=== PATIENT | male | born 1950 | race African-American/Black ===

== ENCOUNTER 2019-02-07 15:25 | Inpatient (IN) | payer MEDICARE, MEDICAID ==
[~2019-02-07] VITALS: Ht 175.3 cm; Wt 76.2 kg
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
[2019-02-07 16:10] VITALS: BP 123/82
--- NOTE | 2019-02-07 16:10 | NUR ---
ED Nurse Note: pt back from CT, blood specimen obtained and sent to lab, pt provided with extra warm blanket, will cont monitor.
[2019-02-07 16:29] LABS: HEMATOCRIT 27.1 % (42.0-52.0); HEMOGLOBIN 8.7 G/DL (14.2-18.0); MEAN CORPUSCULAR VOLUME 94 FL (80-99); PLATELET COUNT 287 K/UL (150-450); RED BLOOD COUNT 2.89 M/UL (4.70-6.10); RED CELL DISTRIBUTION WIDTH 13.5 % (11.6-14.8)
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
--- NOTE | 2019-02-07 16:40 | NUR ---
ED Nurse Note: ERMD notified regarding pt's critical lab value [id number], ERMD aware, per order, 1L NS started.
--- NOTE | 2019-02-07 16:40 | NUR ---
ED Nurse Note: verified w/ ERMD regarding wound site, no suture needed at this time, per ERMD order, wound cleaned and dressing applied. pt tolerated well.
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
[2019-02-07] MEDS ORDERED: Tetanus/Diptheria/Pertussis IM ONE (16:45)
[2019-02-07 16:48] LABS: ALANINE AMINOTRANSFERASE 19 U/L (12-78); ALBUMIN 2.9 G/DL (3.4-5.0); ALBUMIN/GLOBULIN RATIO 0.7 (1.0-2.7); ALKALINE PHOSPHATASE 118 U/L (46-116); ANION GAP -18 mmol/L (5-15); ASPARTATE AMINO TRANSFERASE 29 U/L (15-37); BILIRUBIN,TOTAL 0.3 MG/DL (0.2-1.0); BLOOD UREA NITROGEN 14 mg/dL (7-18); CALCIUM 8.6 MG/DL (8.5-10.1); CARBON DIOXIDE 22 MMOL/L (21-32); CHLORIDE 104 MMOL/L (98-107); CKMB 4.7 NG/ML (0.0-3.6); CREATINE KINASE 170 U/L (26-308); POTASSIUM 3.4 MMOL/L (3.5-5.1)
[2019-02-07 16:50] LABS: SODIUM 118 MMOL/L (136-145)
--- NOTE | 2019-02-07 16:53 | Diagnostic Imaging Report ---
Indication: Cough Technique: One view of the chest Comparison: none Findings: Lungs and pleural spaces are clear. Heart size is normal Impression: No acute process
--- NOTE | 2019-02-07 17:10 | NUR ---
ED Nurse Note: pt cleaned and provided extra blanket, will cont monitor.
[2019-02-07] MEDS ORDERED: NaCl 3% 500ml 500 ML IV ONE (18:00)
[2019-02-07 18:10] VITALS: BP 139/59
--- NOTE | 2019-02-07 18:40 | NUR ---
ED Nurse Note: ATTEMPTED DOING MINI-COG X 2, PT STATES HE IS TIRED AT THIS TIME AND WOULD LIKE TO DO IT LATER. WILL TRY AGAIN.
[2019-02-07] MEDS ORDERED: LORazepam 1mg tab ORAL PRN (18:45)
[2019-02-07] MEDS ORDERED: HYDROmorphone 1mg/ml Carpuject IVP PRN (18:45)
[2019-02-07] MEDS ORDERED: Milk of Magnesia 30ml Ud ORAL PRN (18:45)
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
[2019-02-07] MEDS ORDERED: NORCO 5-325 TA1 EACH ORAL (20:37)
[2019-02-07 20:40] VITALS: BP 134/66
--- NOTE | 2019-02-07 20:40 | NUR ---
TRANSFER TO FLOOR: Patient transferred to as ordered, per Dr Perez. Report given to DAYDAY Quiñonez. Belongings and medications given to . Family and or S/O informed of transfer.
--- NOTE | 2019-02-07 20:45 | NUR ---
NURSE NOTES: Received report from RODRÍGUEZ He RN. Patient was transferred to Telemetry unit from ER via [place] without incident. No signs of acute distress noted; denies pain at this time. AOx3; able to make needs known. Ambulates with assistance. Checked IV site, line, and IV rate; patent and running. No erythema, bleeding, or infiltration noted. Patient put on Tele box; sinus rhythm on the monitor (90s). Belongings list checked with transferring RN. Patient refuses to put money in the safe at this time. Skin assessment performed; wound photos taken. Bed at lowest position, brakes on, siderails up x3. Call light within reach. Will continue to monitor.
[2019-02-07] MEDS: Heparin 5000 units/ml inj SUBQ SCH (21:00)
[2019-02-07] MEDS: Docusate 100mg cap ORAL SCH (22:06)
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
[2019-02-08] VITALS: BP 130/80
[2019-02-08 04:00] VITALS: BP 106/55
[2019-02-08 06:52] LABS: HEMATOCRIT 26.9 % (42.0-52.0); HEMOGLOBIN 8.6 G/DL (14.2-18.0); MEAN CORPUSCULAR VOLUME 96 FL (80-99); PLATELET COUNT 273 K/UL (150-450); RED BLOOD COUNT 2.79 M/UL (4.70-6.10); RED CELL DISTRIBUTION WIDTH 13.6 % (11.6-14.8); WHITE BLOOD COUNT 9.2 K/UL (4.8-10.8)
--- NOTE | 2019-02-08 07:30 | NUR ---
HAND-OFF: Report given to DAYDAY Brito, patient in stable condition, plan of care endorsed.
[2019-02-08 07:50] LABS: ALANINE AMINOTRANSFERASE 14 U/L (12-78); ALBUMIN 2.6 G/DL (3.4-5.0); ALBUMIN/GLOBULIN RATIO 0.7 (1.0-2.7); ALKALINE PHOSPHATASE 101 U/L (46-116); ANION GAP 8 mmol/L (5-15); ASPARTATE AMINO TRANSFERASE 24 U/L (15-37); BILIRUBIN,TOTAL 0.5 MG/DL (0.2-1.0); BLOOD UREA NITROGEN 10 mg/dL (7-18); CALCIUM 8.4 MG/DL (8.5-10.1); CARBON DIOXIDE 21 MMOL/L (21-32); CHLORIDE 113 MMOL/L (98-107); CHOLESTEROL 103 MG/DL (< 200); CREATININE 1.1 MG/DL (0.55-1.30); FERRITIN 110 NG/ML (8-388); GAMMA GLUTAMYL TRANSPEPTIDASE 22 U/L (5-85); HDL CHOLESTEROL 49 MG/DL (40-60); POTASSIUM 3.8 MMOL/L (3.5-5.1); SODIUM 142 MMOL/L (136-145); TRIGLYCERIDES 44 MG/DL (30-150)
--- NOTE | 2019-02-08 07:51 | NUR ---
NURSE NOTES: Received report from Nina/RN, Patient awake and alert, sitting up on bed, eating breakfast. No acute distress/SOB noted. Checked IV, patent, no infiltration or bleeding noted. Bed in low position and locked, call light within reach. Will continue plan of care.
[2019-02-08 07:59] LABS: % IRON SATURATION 23 % (15-50); IRON 48 ug/dL (50-175); TOTAL IRON BINDING CAPACITY 208 ug/dL (250-450)
[2019-02-08 08:00] VITALS: BP 100/50
[2019-02-08] MEDS: Heparin 5000 units/ml inj SUBQ SCH ×3 (09:00→21:25)
[2019-02-08] MEDS: Docusate 100mg cap ORAL SCH ×2 (09:23→21:22)
--- NOTE | 2019-02-08 09:25 | NUR ---
NURSE NOTES: Heparin was not administered because patient have Oozing of blood from right frontal head.
[2019-02-08 12:00] VITALS: BP 127/68
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
--- NOTE | 2019-02-08 12:57 | Operative Note - PDOC ---
Operative Note Operative Note Date of Operation/Procedure: Feb 08, 2019 Pre-op Diagnosis: right forehead mass / hematoma / cyst Procedure: excision of right forehead tumor Post-op Diagnosis: same as pre-op Surgeon: Ayush Specimen: yes Complications: none Condition: stable Estimated Blood Loss: none Drains: none Implant(s) used?: No Indications for Procedure This is a 68-year-old male with atypical history of trauma versus fall who has supposedly sustained a laceration to his right forehead and is identified examination to have a opening wound on his right forehead with a protruding mass which seems to be a hemorrhagic filled cyst potentially. The hematoma was evacuated but the cystic capsule was still present and abnormal. Given this with patient's permission the cystic capsule was excised and sent to pathology for review to ensure etiology. Consent obtained from patient at bedside. Mass sent to pathology. Description of Procedure On evaluation there is a 2 cm laceration with an abnormal protrusion of tissue which seems to be cystic in nature and more of a contained hematoma versus mass. With patient's permission the mass was palpated and noted to be fluid- filled. Hematoma was evacuated but there was still a cystic capsule that was remaining. With patient's permission the cystic capsule was excised using surgical forceps and scissors. On the pathology for evaluation. The wound bed was cleansed and dressings were applied. Hemostasis was noted. Geoff Peacock Feb 08, 2019 12:57
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
[2019-02-08 16:00] VITALS: BP 124/73
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
--- NOTE | 2019-02-08 17:00 | NUR ---
NURSE NOTES: Patient stated, he wants to locate his family if he is not charged for it. Put order for social service for locating his family.
[2019-02-08] MEDS ORDERED: Iron Sucrose 200 MG in NS 110 ML IV ONE (18:00)
[2019-02-08] MEDS: Vitamin B12 1000mcg/ml Inj SUBQ SCH (18:16)
--- NOTE | 2019-02-08 19:05 | NUR ---
NURSE NOTES: Received report from DAYDAY Brito, patient stable, lying comfortably in bed, no acute distress noted. AOx4, denies pain at this time. Dressing on R frontal region w/minimal bleeding. IV site right AC, intact, no s/sx of infection and phlebitis. Bed lowest position, brakes on, side rails upx 3, call light within reach, will continue to monitor and reassess.
[2019-02-08 19:12] LABS: APPEARANCE,URINE CLEAR; BILIRUBIN, URINE NEGATIVE (NEGATIVE); GLUCOSE, URINE (UA) NEGATIVE (NEGATIVE); KETONES,URINE NEGATIVE (NEGATIVE); LEUKOCYTE ESTERASE ,URINE NEGATIVE (NEGATIVE); NITRITE,URINE NEGATIVE (NEGATIVE); PH,URINE 5 (4.5-8.0); PROTEIN,URINE NEGATIVE (NEGATIVE); UROBILINOGEN,URINE 1 MG/DL (0.0-1.0)
[2019-02-08 19:15] LABS: COLOR,URINE YELLOW
--- NOTE | 2019-02-08 19:23 | NUR ---
HAND-OFF: Report given to Olamide/DAYDAY and kassidy/DAYDAY, Patient is in stable condition. Endorsed plan of care.
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
[2019-02-08 20:00] VITALS: BP 111/60
--- NOTE | 2019-02-08 20:15 | Neurology Progress Note ---
Interim History Interim History ROS Limited/Unobtainable: No Interim History no BURGESS at this time laceration repaired Objective Physical Exam Last Vital Signs Date Time Temp Pulse Resp B/P (MAP) Pulse Ox O2 Delivery O2 Flow Rate FiO2 02/08/19 16:00 98.1 72 17 124/73 (90) 100 02/08/19 09:00 Room Air Laboratory Tests Test 02/08/19 05:10 02/08/19 05:52 02/08/19 17:35 Urine Random Sodium 152 mmol/L (20-110) H White Blood Count 9.2 K/UL (4.8-10.8) Red Blood Count 2.79 M/UL (4.70-6.10) L Hemoglobin 8.6 G/DL (14.2-18.0) L Hematocrit 26.9 % (42.0-52.0) L Mean Corpuscular Volume 96 FL (80-99) Mean Corpuscular Hemoglobin 30.8 PG (27.0-31.0) Mean Corpuscular Hemoglobin Concent 32.0 G/DL (32.0-36.0) Red Cell Distribution Width 13.6 % (11.6-14.8) Platelet Count 273 K/UL (150-450) Mean Platelet Volume 4.7 FL (6.5-10.1) L Neutrophils (%) (Auto) % (45.0-75.0) Lymphocytes (%) (Auto) % (20.0-45.0) Monocytes (%) (Auto) % (1.0-10.0) Eosinophils (%) (Auto) % (0.0-3.0) Basophils (%) (Auto) % (0.0-2.0) Differential Total Cells Counted 100 Neutrophils % (Manual) 47 % (45-75) Lymphocytes % (Manual) 23 % (20-45) Monocytes % (Manual) 11 % (1-10) H Eosinophils % (Manual) 19 % (0-3) H Basophils % (Manual) 0 % (0-2) Band Neutrophils 0 % (0-8) Platelet Estimate Adequate Platelet Morphology Normal Hypochromasia 2+ Anisocytosis 1+ Sodium Level 142 MMOL/L (136-145) # Potassium Level 3.8 MMOL/L (3.5-5.1) Chloride Level 113 MMOL/L (98-107) H Carbon Dioxide Level 21 MMOL/L (21-32) Anion Gap 8 mmol/L (5-15) Blood Urea Nitrogen 10 mg/dL (7-18) Creatinine 1.1 MG/DL (0.55-1.30) Estimat Glomerular Filtration Rate > 60 mL/min (>60) Glucose Level 101 MG/DL (74-106) Hemoglobin A1c 4.9 % (4.3-6.0) Uric Acid 7.1 MG/DL (2.6-7.2) Calcium Level 8.4 MG/DL (8.5-10.1) L Phosphorus Level 5.0 MG/DL (2.5-4.9) H Magnesium Level 2.0 MG/DL (1.8-2.4) Iron Level 48 ug/dL (50-175) L Total Iron Binding Capacity 208 ug/dL (250-450) L Percent Iron Saturation 23 % (15-50) Unsaturated Iron Binding 160 ug/dL (112-346) Ferritin 110 NG/ML (8-388) Total Bilirubin 0.5 MG/DL (0.2-1.0) Gamma Glutamyl Transpeptidase 22 U/L (5-85) Aspartate Amino Transf (AST/SGOT) 24 U/L (15-37) Alanine Aminotransferase (ALT/SGPT) 14 U/L (12-78) Alkaline Phosphatase 101 U/L (46-116) C-Reactive Protein, Quantitative < 0.4 mg/dL (0.00-0.90) Pro-B-Type Natriuretic Peptide 610 pg/mL (0-125) H Total Protein 6.1 G/DL (6.4-8.2) L Albumin 2.6 G/DL (3.4-5.0) L Globulin 3.5 g/dL Albumin/Globulin Ratio 0.7 (1.0-2.7) L Triglycerides Level 44 MG/DL (30-150) Cholesterol Level 103 MG/DL (< 200) LDL Cholesterol 46 mg/dL (<100) HDL Cholesterol 49 MG/DL (40-60) Cholesterol/HDL Ratio 2.1 (3.3-4.4) L Vitamin B12 Level 176 PG/ML (193-986) L Folate 16.0 NG/ML (8.6-58.9) Urine Color Yellow Urine Appearance Clear Urine pH 5 (4.5-8.0) Urine Specific [place] 1.015 (1.005-1.035) Urine Protein Negative (NEGATIVE) Urine Glucose (UA) Negative (NEGATIVE) Urine Ketones Negative (NEGATIVE) Urine Blood Negative (NEGATIVE) Urine Nitrite Negative (NEGATIVE) Urine Bilirubin Negative (NEGATIVE) Urine Urobilinogen 1 MG/DL (0.0-1.0) H Urine Leukocyte Esterase Negative (NEGATIVE) Urine RBC 0-2 /HPF (0 - 0) H Urine WBC 0-2 /HPF (0 - 0) Urine Squamous Epithelial Cells Few /LPF (NONE/OCC) Urine Bacteria None /HPF (NONE) General: well developed Neurologic Exam Mental Status: awake, alert, normal cognition, good mathematical skills, normal recent memory, normal remote memory, preserved visuospatial function Speech: normal speech, no dysarthia Language: normal language, no aphasia Cranial Nerves III, IV, : PERRLA Cranial Nerve V: normal facial sensations Motor System: normal muscle tone, strength 5/5, no involuntary movement, no muscle wasting Coordination: normal finger to nose bilaterally, normal heel to plata bilaterally, negative Romberg test Impression/Recommendations Problems: (1) Hyponatremia (2) Fall (3) Head trauma Recommendations monitor neuro status - non focal now ivfs 3% per nephro no need for AEDs Kota Burch MD Feb 08, 2019 20:15
[2019-02-09 00:01] VITALS: BP 109/61
[2019-02-09 04:00] VITALS: BP 115/69
[2019-02-09 06:42] LABS: HEMATOCRIT 26.2 % (42.0-52.0); HEMOGLOBIN 8.4 G/DL (14.2-18.0); MEAN CORPUSCULAR VOLUME 96 FL (80-99); PLATELET COUNT 255 K/UL (150-450); RED BLOOD COUNT 2.72 M/UL (4.70-6.10); RED CELL DISTRIBUTION WIDTH 13.6 % (11.6-14.8); WHITE BLOOD COUNT 6.8 K/UL (4.8-10.8)
[2019-02-09 07:21] LABS: ALANINE AMINOTRANSFERASE 12 U/L (12-78); ALBUMIN 2.4 G/DL (3.4-5.0); ALBUMIN/GLOBULIN RATIO 0.7 (1.0-2.7); ALKALINE PHOSPHATASE 90 U/L (46-116); ANION GAP 7 mmol/L (5-15); ASPARTATE AMINO TRANSFERASE 20 U/L (15-37); BLOOD UREA NITROGEN 11 mg/dL (7-18); CALCIUM 8.2 MG/DL (8.5-10.1); CARBON DIOXIDE 25 MMOL/L (21-32); CHLORIDE 110 MMOL/L (98-107); CREATININE 1.1 MG/DL (0.55-1.30); PHOSPHORUS 4.4 MG/DL (2.5-4.9); POTASSIUM 3.4 MMOL/L (3.5-5.1); SODIUM 142 MMOL/L (136-145)
--- NOTE | 2019-02-09 07:30 | NUR ---
HAND-OFF: Report given to DAYDAY Ryan, patient in stable condition.Plan of care endorsed
[2019-02-09 07:36] LABS: BILIRUBIN,TOTAL 0.2 MG/DL (0.2-1.0)
[2019-02-09 08:00] VITALS: BP 115/72
--- NOTE | 2019-02-09 08:01 | NUR ---
NURSE NOTES: Received report from DAYDAY Quiñonez. Patient in bed resting, no active s/s cardiac, respiratory distress noticed at this time. Patient AOx3, on room air, denies pain at this time, IV on left hand 22G, asymptomatic, patent, intact. Patient has forehead dressing. SR with HR 80. Bed in lowest position, side rails upx3, call light within reach. Will continue to monitor.
[2019-02-09] MEDS ORDERED: Vitamin B12 1000mcg/ml Inj SUBQ SCH (09:00)
[2019-02-09] MEDS ORDERED: Thiamine 100mg tab ORAL SCH (09:00)
[2019-02-09] MEDS: Vitamin B12 1000mcg/ml Inj SUBQ SCH (09:23)
[2019-02-09] MEDS: Docusate 100mg cap ORAL SCH ×2 (09:23→18:02)
[2019-02-09] MEDS: Heparin 5000 units/ml inj SUBQ SCH ×2 (09:24→20:56)
--- NOTE | 2019-02-09 09:35 | NUR ---
PT EVALUATION NOTE Patient seen for initial evaluation. Patient demonstrates independent functional mobility with transfers and ambulation without an assistive device. Skilled inpatient PT intervention not indicated, patient discharged from physical therapy. Patient cleared to ambulate with nursing supervision in ivana, RN notified. Discharge disposition to be determined based on MD recommendation. No DME needs at this time. Addendum: 02/09/19 at 1002 by LAVON GREEN PT Amended: Links added.
--- NOTE | 2019-02-09 10:59 | NUR ---
CASE MANAGEMENT:REVIEW 02/09/19 SI:HEAD TRAUMA...S/P REPAIR...POD #1 HYPONATREMIA ~ CORRECTED 99.1 79 18 115/72 100% ON RA H/H-8.4/26.2 K-3.4 IS: K-DUR PO QD THIAMINE PO QD FOLATE PO QD VIT B 12 SQ QD PROTONIX PO QD HEPARIN SQ Q12 :TELEMETRY STATUS DCP: HOMELESS
--- NOTE | 2019-02-09 11:40 | NUR ---
INSURANCE UPDATED CLINICALS and REVIEW HAVE BEEN FAXED TO: IPA: DONTAE BENAVIDES PLEASE FAX THE REVIEW AND CLINICAL TO P: [phone] F: [phone] (SEND CLINICALS)
[2019-02-09 12:00] VITALS: BP 132/71
--- NOTE | 2019-02-09 12:15 | Nephrology Progress Note ---
Assessment/Plan Problem List: (1) Hyponatremia (2) Fall (3) Forehead trauma (4) Forehead laceration (5) Anemia (6) ETOH abuse Assessment HypoNatremia, was likely depletional & Dehydration corrected now Anemia Low b12 ETOH Abuse Plan B complex MVT IV iron Monitor H&h and Serum na k supplement Subjective ROS Limited/Unobtainable: No Constitutional: Reports: malaise Objective Objective Last 24 Hour Vital Signs Date Time Temp Pulse Resp B/P (MAP) Pulse Ox O2 Delivery O2 Flow Rate FiO2 02/09/19 09:00 Room Air 02/09/19 08:00 99.1 79 18 115/72 (86) 100 02/09/19 08:00 88 02/09/19 04:00 98.3 75 19 115/69 (84) 100 02/09/19 04:00 80 02/09/19 00:01 98.6 77 19 109/61 (77) 100 02/09/19 00:00 80 02/08/19 21:00 Room Air 02/08/19 20:00 98.5 77 20 111/60 (77) 100 02/08/19 20:00 73 02/08/19 16:00 98.1 72 17 124/73 (90) 100 02/08/19 16:00 72 Intake and Output 02/08/19 02/09/19 19:00 07:00 Intake Total 400 ml Output Total 600 ml Balance 400 ml -600 ml Intake Oral 400 ml Output Urine Total 600 ml # Voids 2 Laboratory Tests 02/08/19 17:35: Urine Color Yellow, Urine Appearance Clear, Urine pH 5, Urine Specific [place] 1.015, Urine Protein Negative, Urine Glucose (UA) Negative, Urine Ketones Negative, Urine Blood Negative, Urine Nitrite Negative, Urine Bilirubin Negative , Urine Urobilinogen 1H, Urine Leukocyte Esterase Negative, Urine RBC 0-2H, Urine WBC 0-2, Urine Squamous Epithelial Cells Few, Urine Bacteria None 02/09/19 06:15: White Blood Count 6.8, Red Blood Count 2.72L, Hemoglobin 8.4L, Hematocrit 26.2L , Mean Corpuscular Volume 96, Mean Corpuscular Hemoglobin 30.8, Mean Corpuscular Hemoglobin Concent 32.0, Red Cell Distribution Width 13.6, Platelet Count 255, Mean Platelet Volume 5.1L, Neutrophils (%) (Auto) , Lymphocytes (%) ( Auto) , Monocytes (%) (Auto) , Eosinophils (%) (Auto) , Basophils (%) (Auto) , Differential Total Cells Counted 100, Neutrophils % (Manual) 49, Lymphocytes % ( Manual) 26, Monocytes % (Manual) 0L, Eosinophils % (Manual) 25H, Basophils % ( Manual) 0, Band Neutrophils 0, Platelet Estimate Adequate, Platelet Morphology Normal, Hypochromasia 1+, Sodium Level 142, Potassium Level 3.4L, Chloride Level 110H, Carbon Dioxide Level 25, Anion Gap 7, Blood Urea Nitrogen 11, Creatinine 1.1, Estimat Glomerular Filtration Rate > 60, Glucose Level 117H, Uric Acid 7.1, Calcium Level 8.2L, Phosphorus Level 4.4, Magnesium Level 1.9, Total Bilirubin 0.2, Aspartate Amino Transf (AST/SGOT) 20, Alanine Aminotransferase (ALT/SGPT) 12, Alkaline Phosphatase 90, C-Reactive Protein, Quantitative < 0.4, Total Protein 5.8L, Albumin 2.4L, Globulin 3.4, Albumin/ Globulin Ratio 0.7L Height (Feet): 5 Height (Inches): 9.00 Weight (Pounds): 168 General Appearance: no apparent distress Cardiovascular: normal rate Respiratory/Chest: lungs clear Abdomen: soft Objective no change Parth Wright MD Feb 09, 2019 12:15
[2019-02-09] MEDS ORDERED: Docusate 100mg cap ORAL SCH (13:00)
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
--- NOTE | 2019-02-09 14:30 | NUR ---
NURSE NOTES: Dressing for forehead changed, cleansed with normal saline, gauze saturated with serous red drainage, no oozing at this time, pressure applied, new gauze applied. Will continue to monitor.
--- NOTE | 2019-02-09 15:58 | Neurology Progress Note ---
Interim History Interim History ROS Limited/Unobtainable: No Interim History no BURGESS, more alert, pressured speech Objective Physical Exam Last Vital Signs Date Time Temp Pulse Resp B/P (MAP) Pulse Ox O2 Delivery O2 Flow Rate FiO2 02/09/19 12:00 75 02/09/19 12:00 98.6 18 132/71 (91) 100 02/09/19 09:00 Room Air Laboratory Tests Test 02/08/19 17:35 02/09/19 06:15 Urine Color Yellow Urine Appearance Clear Urine pH 5 (4.5-8.0) Urine Specific [place] 1.015 (1.005-1.035) Urine Protein Negative (NEGATIVE) Urine Glucose (UA) Negative (NEGATIVE) Urine Ketones Negative (NEGATIVE) Urine Blood Negative (NEGATIVE) Urine Nitrite Negative (NEGATIVE) Urine Bilirubin Negative (NEGATIVE) Urine Urobilinogen 1 MG/DL (0.0-1.0) H Urine Leukocyte Esterase Negative (NEGATIVE) Urine RBC 0-2 /HPF (0 - 0) H Urine WBC 0-2 /HPF (0 - 0) Urine Squamous Epithelial Cells Few /LPF (NONE/OCC) Urine Bacteria None /HPF (NONE) White Blood Count 6.8 K/UL (4.8-10.8) Red Blood Count 2.72 M/UL (4.70-6.10) L Hemoglobin 8.4 G/DL (14.2-18.0) L Hematocrit 26.2 % (42.0-52.0) L Mean Corpuscular Volume 96 FL (80-99) Mean Corpuscular Hemoglobin 30.8 PG (27.0-31.0) Mean Corpuscular Hemoglobin Concent 32.0 G/DL (32.0-36.0) Red Cell Distribution Width 13.6 % (11.6-14.8) Platelet Count 255 K/UL (150-450) Mean Platelet Volume 5.1 FL (6.5-10.1) L Neutrophils (%) (Auto) % (45.0-75.0) Lymphocytes (%) (Auto) % (20.0-45.0) Monocytes (%) (Auto) % (1.0-10.0) Eosinophils (%) (Auto) % (0.0-3.0) Basophils (%) (Auto) % (0.0-2.0) Differential Total Cells Counted 100 Neutrophils % (Manual) 49 % (45-75) Lymphocytes % (Manual) 26 % (20-45) Monocytes % (Manual) 0 % (1-10) L Eosinophils % (Manual) 25 % (0-3) H Basophils % (Manual) 0 % (0-2) Band Neutrophils 0 % (0-8) Platelet Estimate Adequate Platelet Morphology Normal Hypochromasia 1+ Sodium Level 142 MMOL/L (136-145) Potassium Level 3.4 MMOL/L (3.5-5.1) L Chloride Level 110 MMOL/L (98-107) H Carbon Dioxide Level 25 MMOL/L (21-32) Anion Gap 7 mmol/L (5-15) Blood Urea Nitrogen 11 mg/dL (7-18) Creatinine 1.1 MG/DL (0.55-1.30) Estimat Glomerular Filtration Rate > 60 mL/min (>60) Glucose Level 117 MG/DL (74-106) H Uric Acid 7.1 MG/DL (2.6-7.2) Calcium Level 8.2 MG/DL (8.5-10.1) L Phosphorus Level 4.4 MG/DL (2.5-4.9) Magnesium Level 1.9 MG/DL (1.8-2.4) Total Bilirubin 0.2 MG/DL (0.2-1.0) Aspartate Amino Transf (AST/SGOT) 20 U/L (15-37) Alanine Aminotransferase (ALT/SGPT) 12 U/L (12-78) Alkaline Phosphatase 90 U/L (46-116) C-Reactive Protein, Quantitative < 0.4 mg/dL (0.00-0.90) Total Protein 5.8 G/DL (6.4-8.2) L Albumin 2.4 G/DL (3.4-5.0) L Globulin 3.4 g/dL Albumin/Globulin Ratio 0.7 (1.0-2.7) L General: well developed Neurologic Exam Mental Status: awake, alert, normal cognition, good mathematical skills, normal recent memory, normal remote memory, preserved visuospatial function Speech: normal speech, no dysarthia Language: normal language, no aphasia Cranial Nerves III, IV, : PERRLA Cranial Nerve V: normal facial sensations Motor System: normal muscle tone, strength 5/5, no involuntary movement, no muscle wasting Coordination: normal finger to nose bilaterally, normal heel to plata bilaterally, negative Romberg test Impression/Recommendations Problems: (1) Hyponatremia (2) Fall (3) Head trauma Recommendations monitor neuro status - non focal now ivfs 3% per nephro no need for AEDs Kota Burch MD Feb 09, 2019 15:58
[2019-02-09 16:00] VITALS: BP 138/77
--- NOTE | 2019-02-09 16:03 | Cardiology Report ---
APPROVED REPORT EKG Measurement Heart [id number] Normal sinus rhythm Normal ECG
--- NOTE | 2019-02-09 17:13 | NUR ---
TRANSFER TO FLOOR: Patient transferred to , per Dr. Wright. Report given to DAYDAY Shen. Belongings and medications given to DAYDAY Shen. Family and or S/O informed of transfer.
--- NOTE | 2019-02-09 17:20 | NUR ---
NURSE NOTES: Received patient into room 409 bed 1,patient is alert and oriented,Dressing noted to the right forehead,patient personal belongings at bedside,patient has wood,patient wants to keep money with him.Patient state he has 192 dollars,money counted by both RN and verify 192 dollars. .Call light within reach.
--- NOTE | 2019-02-09 17:48 | NUR ---
HOMELESS COORDINATOR HC provided clothing and resources for patient. HC contacted insurance to find out if they cover any substance abuse program, insurance request denied. HC spoke with Flor. Patient still refuses placement for group home. Patient continues to require medical intervention. Will continue to monitor and assist as needed.
[2019-02-09] MEDS ORDERED: LORazepam 1mg tab ORAL PRN (18:00)
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
--- NOTE | 2019-02-09 19:06 | General Progress Note ---
Advance Care Planning Advance Care Planning Advance Care Planning [facility] An independent Hospitalist group, where every patient is our [facility] Internal Medicine Hospitalist Advanced Care Planning Note Please contact us at Date of Discussion: A [id number] discussion with the pt regarding the patient's advanced care planning took place during this hospitalization on the above date. The discussion included the explanation and discussion of advance directives and associated forms/documents, as well as the patient's current code status. We also discussed at length the patient's medical conditions (both acute and chronic), general prognosis, treatment options, and goals of care. The following summarizes the discussion: Advance Care Planning/Goals of Care: - Will attempt to fill out an AD and/or POLST with the patient prior to discharge, if not already completed - Continue current evaluation and management of any acute and chronic medical issues - Will continue to support the patient/family - Will continue to discuss both short- and long-term goals of care DPOA-HC/Surrogate Decision Maker: None currently appointed Code Status: Full Code Advanced Care Planning Forms/Documents Completed: Deferred until later encounter/visit A total of 19 minutes was spent on this discussion, including counseling, answering questions, and completing, if any, pertinent advanced care planning forms/documents. Time of note may not reflect time of encounter. Radha Espinoza MD Feb 09, 2019 19:05
--- NOTE | 2019-02-09 19:17 | NUR ---
HAND-OFF: Report given to RICKY NAYLOR.
--- NOTE | 2019-02-09 19:55 | NUR ---
NURSE NOTES: Pt is in bed, awake and verbal. No acute distress noted. Bed locked low in position,side rails up and call light within reach. Pt instructed to call for assistance.
[2019-02-09 20:00] VITALS: BP 128/74
[2019-02-09] MEDS ORDERED: Milk of Magnesia 30ml Ud ORAL PRN (21:00)
[2019-02-10] VITALS: BP 125/76
--- NOTE | 2019-02-10 01:05 | NUR ---
NURSE NOTES: Pt's head dressing came off, dressing reapplied.
[2019-02-10 04:00] VITALS: BP 110/69
--- NOTE | 2019-02-10 07:10 | NUR ---
HAND-OFF: Report given to DAYDAY Shen.
--- NOTE | 2019-02-10 07:35 | NUR ---
NURSE NOTES: Patient is alert and oriented,respiration unlabored,patient sitting up in bed and eating breakfast.Dressing to the forehead intact.IV heplock intact.Bed alarm is on,call light within reach.
[2019-02-10 08:15] VITALS: BP 125/77
[2019-02-10] MEDS: Docusate 100mg cap ORAL SCH ×3 (08:23→18:48)
[2019-02-10] MEDS: Thiamine 100mg tab ORAL SCH (08:25)
[2019-02-10] MEDS: Heparin 5000 units/ml inj SUBQ SCH ×2 (08:36→21:00)
[2019-02-10] MEDS ORDERED: Vitamin B12 1000mcg/ml Inj SUBQ SCH (09:00)
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
[2019-02-10 12:00] VITALS: BP 132/74
--- NOTE | 2019-02-10 14:23 | Nephrology Progress Note ---
Assessment/Plan Problem List: (1) Hyponatremia (2) Fall (3) Forehead trauma (4) Forehead laceration (5) Anemia (6) ETOH abuse Assessment HypoNatremia, was likely depletional & Dehydration corrected now Anemia Low b12 ETOH Abuse Plan B complex MVT IV iron Monitor H&h and Serum na k supplement Subjective ROS Limited/Unobtainable: No Objective Objective Last 24 Hour Vital Signs Date Time Temp Pulse Resp B/P (MAP) Pulse Ox O2 Delivery O2 Flow Rate FiO2 02/10/19 12:00 98.1 78 18 132/74 (93) 98 02/10/19 09:00 Room Air 02/10/19 08:15 98.2 87 20 125/77 (93) 97 02/10/19 04:00 98.2 72 18 110/69 (83) 98 02/10/19 00:00 98.4 70 19 125/76 (92) 99 02/09/19 21:00 Room Air 02/09/19 20:00 99.7 90 19 128/74 (92) 100 02/09/19 16:00 98.4 80 18 138/77 (97) 100 Intake and Output 02/09/19 02/10/19 19:00 07:00 Intake Total 360 ml Output Total 350 ml Balance 360 ml -350 ml Intake Oral 360 ml Output Urine Total 350 ml Height (Feet): 5 Height (Inches): 9.00 Weight (Pounds): 168 General Appearance: no apparent distress Objective no change Parth Wright MD Feb 10, 2019 14:23
[2019-02-10 16:00] VITALS: BP 127/77
--- NOTE | 2019-02-10 18:51 | NUR ---
NURSE NOTES: Patient resting,no complaints at this time, call light within reach.Dressing to the right side of forehead intact,no bleeding or drainage noted.
--- NOTE | 2019-02-10 19:54 | NUR ---
HAND-OFF: Report given to Silvano NAYLOR.
[2019-02-10 20:00] VITALS: BP 132/76
--- NOTE | 2019-02-10 20:14 | Neurology Progress Note ---
Interim History Interim History ROS Limited/Unobtainable: No Interim History more alert awake Objective Physical Exam Last Vital Signs Date Time Temp Pulse Resp B/P (MAP) Pulse Ox O2 Delivery O2 Flow Rate FiO2 02/10/19 16:00 98.2 82 18 127/77 (94) 100 02/10/19 09:00 Room Air General: well developed Neurologic Exam Mental Status: awake, alert, normal cognition, good mathematical skills, normal recent memory, normal remote memory, preserved visuospatial function Speech: normal speech, no dysarthia Language: normal language, no aphasia Cranial Nerves III, IV, : PERRLA Cranial Nerve V: normal facial sensations Motor System: normal muscle tone, strength 5/5, no involuntary movement, no muscle wasting Coordination: normal finger to nose bilaterally, normal heel to plata bilaterally, negative Romberg test Impression/Recommendations Problems: (1) Hyponatremia (2) Fall (3) Head trauma Recommendations monitor neuro status - non focal now no need for AEDs PT OT for dispo Kota Burch MD Feb 10, 2019 20:14
--- NOTE | 2019-02-10 20:36 | NUR ---
NURSE NOTES: Patient in bed, awake, periods of confusion. call light is at bedside. Respiration is even and unlabored. No complaint of pain or discomfort noted. Skin is warm and dry. Noted with forehead dressing. Dry and intact. IV site noted. Will continue plan of care.
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
[2019-02-11] VITALS: BP 136/68
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
[2019-02-11 04:00] VITALS: BP 156/74
--- NOTE | 2019-02-11 07:09 | NUR ---
HAND-OFF: Report given to DAYDAY Owens..
--- NOTE | 2019-02-11 07:40 | NUR ---
NURSE NOTES: Patient awake and alert,patient sitting up in bed and eating breakfast.Dressing to the forehead in tact with a small amount of stain blood noted on dressing,no complaint at this time. Call light within reach.
[2019-02-11 08:00] VITALS: BP 102/64
[2019-02-11] MEDS: Heparin 5000 units/ml inj SUBQ SCH ×2 (09:00→21:06)
[2019-02-11] MEDS: Docusate 100mg cap ORAL SCH ×3 (09:27→18:30)
[2019-02-11] MEDS: Thiamine 100mg tab ORAL SCH (09:28)
[2019-02-11 09:43] LABS: BASOPHILS % (AUTO) 0.6 % (0.0-2.0); EOSINOPHILS % (AUTO) 13.3 % (0.0-3.0); HEMATOCRIT 28.1 % (42.0-52.0); HEMOGLOBIN 8.9 G/DL (14.2-18.0); LYMPHOCYTES % (AUTO) 20.9 % (20.0-45.0); MEAN CORPUSCULAR VOLUME 97 FL (80-99); MONOCYTES % (AUTO) 6.1 % (1.0-10.0); NEUTROPHILS % (AUTO) 59.2 % (45.0-75.0); PLATELET COUNT 262 K/UL (150-450); RED CELL DISTRIBUTION WIDTH 13.5 % (11.6-14.8); WHITE BLOOD COUNT 7.9 K/UL (4.8-10.8)
[2019-02-11 10:56] LABS: ALANINE AMINOTRANSFERASE 12 U/L (12-78); ALBUMIN 2.6 G/DL (3.4-5.0); ALBUMIN/GLOBULIN RATIO 0.7 (1.0-2.7); ALKALINE PHOSPHATASE 78 U/L (46-116); ANION GAP 9 mmol/L (5-15); ASPARTATE AMINO TRANSFERASE 19 U/L (15-37); BILIRUBIN,TOTAL 0.3 MG/DL (0.2-1.0); BLOOD UREA NITROGEN 13 mg/dL (7-18); CALCIUM 8.5 MG/DL (8.5-10.1); CARBON DIOXIDE 26 MMOL/L (21-32); CHLORIDE 105 MMOL/L (98-107); FERRITIN 156 NG/ML (8-388); PHOSPHORUS 4.2 MG/DL (2.5-4.9); POTASSIUM 3.9 MMOL/L (3.5-5.1); SODIUM 139 MMOL/L (136-145)
[2019-02-11 11:29] LABS: % IRON SATURATION 19 % (15-50); IRON 39 ug/dL (50-175); TOTAL IRON BINDING CAPACITY 207 ug/dL (250-450)
[2019-02-11 12:00] VITALS: BP 134/82
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
--- NOTE | 2019-02-11 14:29 | Nephrology Progress Note ---
Assessment/Plan Problem List: (1) Hyponatremia (2) Fall (3) Forehead trauma (4) Forehead laceration (5) Anemia (6) ETOH abuse Assessment HypoNatremia, was likely depletional & Dehydration corrected now Anemia Low b12 ETOH Abuse Plan B complex MVT IV iron Monitor H&h and Serum na k supplement DC planning Subjective ROS Limited/Unobtainable: No Objective Objective Last 24 Hour Vital Signs Date Time Temp Pulse Resp B/P (MAP) Pulse Ox O2 Delivery O2 Flow Rate FiO2 02/11/19 09:33 Room Air 02/11/19 08:00 98.7 87 19 102/64 (77) 02/11/19 04:00 98.3 86 18 156/74 (101) 94 02/11/19 00:00 98.8 88 19 136/68 (90) 99 02/10/19 21:00 Room Air 02/10/19 20:00 99.0 86 18 132/76 (94) 100 02/10/19 16:00 98.2 82 18 127/77 (94) 100 Intake and Output 02/10/19 02/11/19 18:59 06:59 Intake Total 840 ml 600 ml Output Total 1200 ml 1300 ml Balance -360 ml -700 ml Intake Oral 840 ml 600 ml Output Urine Total 1200 ml 1300 ml # Voids 2 2 Laboratory Tests 02/11/19 08:00: White Blood Count 7.9, Red Blood Count 2.90L, Hemoglobin 8.9L, Hematocrit 28.1L , Mean Corpuscular Volume 97, Mean Corpuscular Hemoglobin 30.7, Mean Corpuscular Hemoglobin Concent 31.6L, Red Cell Distribution Width 13.5, Platelet Count 262, Mean Platelet Volume 5.0L, Neutrophils (%) (Auto) 59.2, Lymphocytes (%) (Auto) 20.9, Monocytes (%) (Auto) 6.1, Eosinophils (%) (Auto) 13.3H, Basophils (%) (Auto) 0.6, Sodium Level 139, Potassium Level 3.9, Chloride Level 105, Carbon Dioxide Level 26, Anion Gap 9, Blood Urea Nitrogen 13 , Creatinine 1.0, Estimat Glomerular Filtration Rate > 60, Glucose Level 150H, Calcium Level 8.5, Phosphorus Level 4.2, Magnesium Level 1.9, Iron Level 39L, Total Iron Binding Capacity 207L, Percent Iron Saturation 19, Unsaturated Iron Binding 168, Ferritin 156, Total Bilirubin 0.3, Aspartate Amino Transf (AST/SGOT ) 19, Alanine Aminotransferase (ALT/SGPT) 12, Alkaline Phosphatase 78, Total Protein 6.3L, Albumin 2.6L, Globulin 3.7, Albumin/Globulin Ratio 0.7L, Vitamin B12 Level > 2000H, Vitamin D 25-Hydroxy [Pending], 25-Hydroxy Vitamin D2 [ Pending], 25-Hydroxy Vitamin D3 [Pending] Height (Feet): 5 Height (Inches): 9.00 Weight (Pounds): 168 General Appearance: no apparent distress Objective no change Parth Wright MD Feb 11, 2019 14:29
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
[2019-02-11 16:00] VITALS: BP 125/75
--- NOTE | 2019-02-11 17:05 | Neurology Progress Note ---
Interim History Interim History ROS Limited/Unobtainable: No Interim History alert, awake, ambulated Objective Physical Exam Last Vital Signs Date Time Temp Pulse Resp B/P (MAP) Pulse Ox O2 Delivery O2 Flow Rate FiO2 02/11/19 12:00 98.3 77 18 134/82 (99) 99 02/11/19 09:33 Room Air Laboratory Tests Test 02/11/19 08:00 White Blood Count 7.9 K/UL (4.8-10.8) Red Blood Count 2.90 M/UL (4.70-6.10) L Hemoglobin 8.9 G/DL (14.2-18.0) L Hematocrit 28.1 % (42.0-52.0) L Mean Corpuscular Volume 97 FL (80-99) Mean Corpuscular Hemoglobin 30.7 PG (27.0-31.0) Mean Corpuscular Hemoglobin Concent 31.6 G/DL (32.0-36.0) L Red Cell Distribution Width 13.5 % (11.6-14.8) Platelet Count 262 K/UL (150-450) Mean Platelet Volume 5.0 FL (6.5-10.1) L Neutrophils (%) (Auto) 59.2 % (45.0-75.0) Lymphocytes (%) (Auto) 20.9 % (20.0-45.0) Monocytes (%) (Auto) 6.1 % (1.0-10.0) Eosinophils (%) (Auto) 13.3 % (0.0-3.0) H Basophils (%) (Auto) 0.6 % (0.0-2.0) Sodium Level 139 MMOL/L (136-145) Potassium Level 3.9 MMOL/L (3.5-5.1) Chloride Level 105 MMOL/L (98-107) Carbon Dioxide Level 26 MMOL/L (21-32) Anion Gap 9 mmol/L (5-15) Blood Urea Nitrogen 13 mg/dL (7-18) Creatinine 1.0 MG/DL (0.55-1.30) Estimat Glomerular Filtration Rate > 60 mL/min (>60) Glucose Level 150 MG/DL (74-106) H Calcium Level 8.5 MG/DL (8.5-10.1) Phosphorus Level 4.2 MG/DL (2.5-4.9) Magnesium Level 1.9 MG/DL (1.8-2.4) Iron Level 39 ug/dL (50-175) L Total Iron Binding Capacity 207 ug/dL (250-450) L Percent Iron Saturation 19 % (15-50) Unsaturated Iron Binding 168 ug/dL (112-346) Ferritin 156 NG/ML (8-388) Total Bilirubin 0.3 MG/DL (0.2-1.0) Aspartate Amino Transf (AST/SGOT) 19 U/L (15-37) Alanine Aminotransferase (ALT/SGPT) 12 U/L (12-78) Alkaline Phosphatase 78 U/L (46-116) Total Protein 6.3 G/DL (6.4-8.2) L Albumin 2.6 G/DL (3.4-5.0) L Globulin 3.7 g/dL Albumin/Globulin Ratio 0.7 (1.0-2.7) L Vitamin B12 Level > 2000 PG/ML (193-986) H Vitamin D 25-Hydroxy Pending 25-Hydroxy Vitamin D2 Pending 25-Hydroxy Vitamin D3 Pending General: well developed Neurologic Exam Mental Status: awake, alert, normal cognition, good mathematical skills, normal recent memory, normal remote memory, preserved visuospatial function Speech: normal speech, no dysarthia Language: normal language, no aphasia Cranial Nerves III, IV, : PERRLA Cranial Nerve V: normal facial sensations Motor System: normal muscle tone, strength 5/5, no involuntary movement, no muscle wasting Coordination: normal finger to nose bilaterally, normal heel to plata bilaterally, negative Romberg test Impression/Recommendations Problems: (1) Hyponatremia (2) Fall (3) Head trauma Recommendations monitor neuro status - non focal now no need for AEDs PT OT for dispo Kota Burch MD Feb 11, 2019 17:05
--- NOTE | 2019-02-11 18:30 | NUR ---
NURSE NOTES: Patient resting,no bleeding noted at the right forehead.dressing intact.No complaint of pain.Call light within reach.Dressing to be changed as ordered
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
[2019-02-11 20:00] VITALS: BP 116/74
[2019-02-12] VITALS (7 sets, daily range): BP systolic 112–144; BP diastolic 66–86
--- NOTE | 2019-02-12 04:54 | NUR ---
NURSE NOTES: Provided dressing change on the forehead. Cleansed with saline and placed new gauze. Taped with paper tape. Patient explained procedure before and during. Patient verbalized understanding. Tolerated well.
--- NOTE | 2019-02-12 07:19 | NUR ---
HAND-OFF: Report given to DAYDAY Bowens. Patient in stable condition.
--- NOTE | 2019-02-12 07:57 | NUR ---
NURSE NOTES: Patient received in stable condition, sleeping in bed. Breathing even and unlabored on room air. No signs of respiratory distress or SOB noted. Dressing on right forehead observed to be clean, dry and intact. IV site on right arm patent, saline lock. Urinal by the bedside. Bed locked in lowest position, call light placed within reach. Will continue to monitor.
[2019-02-12] MEDS: Docusate 100mg cap ORAL SCH ×3 (08:48→17:05)
[2019-02-12] MEDS: Thiamine 100mg tab ORAL SCH (08:48)
[2019-02-12] MEDS: Heparin 5000 units/ml inj SUBQ SCH ×2 (09:03→20:08)
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
--- NOTE | 2019-02-12 12:23 | Nephrology Progress Note ---
Assessment/Plan Problem List: (1) Hyponatremia (2) Fall (3) Forehead trauma (4) Forehead laceration (5) Anemia (6) ETOH abuse Assessment HypoNatremia, was likely depletional & Dehydration corrected now Anemia Low b12 ETOH Abuse Plan B complex MVT IV iron Monitor H&h and Serum na k supplement DC planning Subjective ROS Limited/Unobtainable: No Objective Objective Last 24 Hour Vital Signs Date Time Temp Pulse Resp B/P (MAP) Pulse Ox O2 Delivery O2 Flow Rate FiO2 02/12/19 12:00 97.3 75 18 144/82 (102) 100 02/12/19 09:00 Room Air 02/12/19 08:00 98.5 80 16 112/66 (81) 95 02/12/19 04:00 99.7 81 18 126/73 (90) 99 02/12/19 00:00 99.9 84 19 136/86 (103) 98 02/11/19 21:00 Room Air 02/11/19 20:00 100.1 83 19 116/74 (88) 99 02/11/19 16:00 98.3 75 15 125/75 (92) 100 Intake and Output 02/11/19 02/12/19 19:00 07:00 Intake Total 720 ml 360 ml Output Total 300 ml 300 ml Balance 420 ml 60 ml Intake Oral 720 ml 360 ml Output Urine Total 300 ml 300 ml # Voids 2 Height (Feet): 5 Height (Inches): 9.00 Weight (Pounds): 168 General Appearance: no apparent distress Objective no change Parth Wright MD Feb 12, 2019 12:23
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
--- NOTE | 2019-02-12 15:46 | NUR ---
RD ASSESSMENT & RECOMMENDATIONS SEE CARE ACTIVITY FOR COMPLETE ASSESSMENT DAILY ESTIMATED NEEDS: Needs based on General/ 70.4kg 25-30 kcals/kg 7753-1474 total kcals 1-1.2 g protein/kg 70-84 g total protein 25-30 mL/kg 7474-6455 total fluid mLs NUTRITION DIAGNOSIS: Altered nutrition related lab values R/T clinical condition as evidenced by critically low Na upon adm (118*-> now wnl) CURRENT DIET:CARDIAC PO DIET RECOMMENDATIONS: REGULAR/ texture as tolerated ADDITIONAL RECOMMENDATIONS: * Standing wt for accurate CBW * Monitor lytes, replete as needed * MVI x 1 * Wound healing of right forehead, s/p excision of abnormal protrusion of tissue: add Vit C 500mg QD
--- NOTE | 2019-02-12 17:29 | Neurology Progress Note ---
Interim History Interim History ROS Limited/Unobtainable: No Objective Physical Exam Last Vital Signs Date Time Temp Pulse Resp B/P (MAP) Pulse Ox O2 Delivery O2 Flow Rate FiO2 02/12/19 16:00 98.0 77 17 115/72 (86) 99 02/12/19 09:00 Room Air General: well developed Neurologic Exam Mental Status: awake, alert, normal cognition, good mathematical skills, normal recent memory, normal remote memory, preserved visuospatial function Speech: normal speech, no dysarthia Language: normal language, no aphasia Cranial Nerves III, IV, : PERRLA Cranial Nerve V: normal facial sensations Motor System: normal muscle tone, strength 5/5, no involuntary movement, no muscle wasting Coordination: normal finger to nose bilaterally, normal heel to plata bilaterally, negative Romberg test Impression/Recommendations Problems: (1) Hyponatremia (2) Fall (3) Head trauma Recommendations monitor neuro status - non focal now no need for AEDs PT OT for dispo Kota Burch MD Feb 12, 2019 17:29
--- NOTE | 2019-02-12 19:15 | NUR ---
NURSE NOTES: Received a report from Gogo Higgins RN. Pt is sleeping comfortably. On room air. No c/o pain/discomfort. IV site is patent and intact. Bed in lowest position. Bed alarm is on. Call light within reach. Will continue to monitor.
--- NOTE | 2019-02-12 19:31 | NUR ---
HAND-OFF: Report given to Alexandra NAYLOR.
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
[2019-02-13 04:00] VITALS: BP 122/76
[2019-02-13 07:02] LABS: BASOPHILS % (AUTO) 0.7 % (0.0-2.0); EOSINOPHILS % (AUTO) 12.3 % (0.0-3.0); HEMATOCRIT 29.9 % (42.0-52.0); HEMOGLOBIN 9.4 G/DL (14.2-18.0); LYMPHOCYTES % (AUTO) 18.9 % (20.0-45.0); MEAN CORPUSCULAR VOLUME 96 FL (80-99); MONOCYTES % (AUTO) 8.9 % (1.0-10.0); NEUTROPHILS % (AUTO) 59.1 % (45.0-75.0); PLATELET COUNT 242 K/UL (150-450); RED BLOOD COUNT 3.13 M/UL (4.70-6.10); RED CELL DISTRIBUTION WIDTH 13.1 % (11.6-14.8)
[2019-02-13 07:10] LABS: ALANINE AMINOTRANSFERASE 11 U/L (12-78); ALBUMIN 2.7 G/DL (3.4-5.0); ALBUMIN/GLOBULIN RATIO 0.7 (1.0-2.7); ALKALINE PHOSPHATASE 73 U/L (46-116); ANION GAP 5 mmol/L (5-15); ASPARTATE AMINO TRANSFERASE 19 U/L (15-37); BILIRUBIN,TOTAL 0.3 MG/DL (0.2-1.0); BLOOD UREA NITROGEN 16 mg/dL (7-18); CALCIUM 8.5 MG/DL (8.5-10.1); CARBON DIOXIDE 27 MMOL/L (21-32); CHLORIDE 106 MMOL/L (98-107); PHOSPHORUS 4.3 MG/DL (2.5-4.9); POTASSIUM 3.9 MMOL/L (3.5-5.1); SODIUM 138 MMOL/L (136-145)
--- NOTE | 2019-02-13 07:20 | NUR ---
HAND-OFF: Report given to DAYDAY Plata.
--- NOTE | 2019-02-13 07:48 | NUR ---
NURSE NOTES: received report from DAYDAY Morris. patient in bed. alert. oriented. verbally responsive. no respiratory distress noted on room air. no pain at this time. dressing intact on rt forehead s/p surgery. IV RFA 24g. intact. bed in the lowest position. call light within reach. alarm on. will continue to provide plan of care.
[2019-02-13 08:00] VITALS: BP 120/67
--- NOTE | 2019-02-13 08:32 | Neurology Progress Note ---
Interim History Interim History ROS Limited/Unobtainable: Yes Objective Physical Exam Last Vital Signs Date Time Temp Pulse Resp B/P (MAP) Pulse Ox O2 Delivery O2 Flow Rate FiO2 02/13/19 04:00 98.3 76 18 122/76 (91) 100 02/12/19 21:00 Room Air Laboratory Tests Test 02/13/19 05:30 White Blood Count 8.0 K/UL (4.8-10.8) Red Blood Count 3.13 M/UL (4.70-6.10) L Hemoglobin 9.4 G/DL (14.2-18.0) L Hematocrit 29.9 % (42.0-52.0) L Mean Corpuscular Volume 96 FL (80-99) Mean Corpuscular Hemoglobin 30.1 PG (27.0-31.0) Mean Corpuscular Hemoglobin Concent 31.5 G/DL (32.0-36.0) L Red Cell Distribution Width 13.1 % (11.6-14.8) Platelet Count 242 K/UL (150-450) Mean Platelet Volume 5.1 FL (6.5-10.1) L Neutrophils (%) (Auto) 59.1 % (45.0-75.0) Lymphocytes (%) (Auto) 18.9 % (20.0-45.0) L Monocytes (%) (Auto) 8.9 % (1.0-10.0) Eosinophils (%) (Auto) 12.3 % (0.0-3.0) H Basophils (%) (Auto) 0.7 % (0.0-2.0) Sodium Level 138 MMOL/L (136-145) Potassium Level 3.9 MMOL/L (3.5-5.1) Chloride Level 106 MMOL/L (98-107) Carbon Dioxide Level 27 MMOL/L (21-32) Anion Gap 5 mmol/L (5-15) Blood Urea Nitrogen 16 mg/dL (7-18) Creatinine 1.0 MG/DL (0.55-1.30) Estimat Glomerular Filtration Rate > 60 mL/min (>60) Glucose Level 99 MG/DL (74-106) Calcium Level 8.5 MG/DL (8.5-10.1) Phosphorus Level 4.3 MG/DL (2.5-4.9) Magnesium Level 2.0 MG/DL (1.8-2.4) Total Bilirubin 0.3 MG/DL (0.2-1.0) Aspartate Amino Transf (AST/SGOT) 19 U/L (15-37) Alanine Aminotransferase (ALT/SGPT) 11 U/L (12-78) L Alkaline Phosphatase 73 U/L (46-116) Total Protein 6.7 G/DL (6.4-8.2) Albumin 2.7 G/DL (3.4-5.0) L Globulin 4.0 g/dL Albumin/Globulin Ratio 0.7 (1.0-2.7) L General: well developed Neurologic Exam Mental Status: awake, alert, normal cognition, good mathematical skills, normal recent memory, normal remote memory, preserved visuospatial function Speech: normal speech, no dysarthia Language: normal language, no aphasia Cranial Nerves III, IV, : PERRLA Cranial Nerve V: normal facial sensations Motor System: normal muscle tone, strength 5/5, no involuntary movement, no muscle wasting Coordination: normal finger to nose bilaterally, normal heel to plata bilaterally, negative Romberg test Impression/Recommendations Problems: (1) Hyponatremia (2) Fall (3) Head trauma Recommendations monitor neuro status - non focal now no need for AEDs PT OT for dispo Kota Burch MD Feb 13, 2019 08:32
[2019-02-13] MEDS: Docusate 100mg cap ORAL SCH ×3 (09:34→17:06)
[2019-02-13] MEDS: Thiamine 100mg tab ORAL SCH (09:34)
[2019-02-13] MEDS: Heparin 5000 units/ml inj SUBQ SCH ×2 (09:38→20:47)
--- NOTE | 2019-02-13 11:57 | NUR ---
PT EVALUATION NOTE Received MD order for PT evaluation. Patient previously seen for initial evaluation on 02/09/19 and patient demonstrated independent functional mobility with transfers and ambulation without an assistive device and was discharged from PT. Patient seen for re-assessment. There is no change in patient's functional status, patient is independent and safe with all functional mobility. Skilled inpatient PT intervention not indicated, patient cleared to ambulate with nursing supervision in [facility], RN notified. Discharge disposition to be determined based on MD recommendation. No DME needs at this time.
[2019-02-13 12:00] VITALS: BP 128/75
--- NOTE | 2019-02-13 12:08 | NUR ---
CASE MANAGEMENT:REVIEW 02/13/19 SI:HEAD TRAUMA...S/P EXCISION OF RT FOREHEAD TUMOR POD #5 HYPONATREMIA. 98.0 82 18 120/67 H/H-9.4/29.9 IS: FOLATE PO QD PROTONIX PO QD K-DUR PO QD THIAMINE PO QD HEPARIN SQ Q12 :TELEMETRY STATUS DCP: HOMELESS PLAN: DAILY DRESSING CHANGES WITH SALINE, 4X4 AND PAPER TAPE Addendum: 02/13/19 at 1229 by SHASHI JAMIL LVN LVN INSURANCE INFO [facility] [employer] JIMMIE T: [phone] F: [phone]
--- NOTE | 2019-02-13 13:11 | NUR ---
INSURANCE UPDATED CLINICALS and REVIEW HAVE BEEN FAXED TO: IPA: DONTAE BENAVIDES PLEASE FAX THE REVIEW AND CLINICAL TO P: [phone] F: [phone] ([facility]) Addendum: 02/14/19 at 1006 by SHASHI JAMIL LVN LVN INSURANCE INFO [facility] JIMMIE T: F: Addendum: 02/14/19 at 1510 by SHASHI JAMIL LVN LVN INSURANCE INFO [facility] JIMMIE T: [phone] F:
--- NOTE | 2019-02-13 13:30 | Nephrology Progress Note ---
Assessment/Plan Problem List: (1) Hyponatremia (2) Fall (3) Forehead trauma (4) Forehead laceration (5) Anemia (6) ETOH abuse Assessment HypoNatremia, was likely depletional & Dehydration corrected now Anemia Low b12 ETOH Abuse Plan B complex MVT IV iron Monitor H&h and Serum na k supplement DC planning Subjective ROS Limited/Unobtainable: No Objective Objective Last 24 Hour Vital Signs Date Time Temp Pulse Resp B/P (MAP) Pulse Ox O2 Delivery O2 Flow Rate FiO2 02/13/19 09:00 Room Air 02/13/19 08:00 98.0 82 18 120/67 (84) 99 02/13/19 04:00 98.3 76 18 122/76 (91) 100 02/12/19 23:33 98.8 80 17 144/82 (102) 100 02/12/19 21:00 Room Air 02/12/19 20:00 99.1 75 18 126/75 (92) 99 02/12/19 16:00 98.0 77 17 115/72 (86) 99 Intake and Output 02/12/19 02/13/19 19:00 07:00 Intake Total 570 ml 120 ml Balance 570 ml 120 ml Intake Oral 570 ml 120 ml # Voids 2 # Bowel Movements 1 Current Medications Medications (Trade) Dose Ordered Sig/Tyrell Route PRN Reason Start Time Stop Time Status Last Admin Dose Admin Acetaminophen (Tylenol) 650 mg Q4H PRN ORAL Mild Pain (Pain Scale 1-3) 02/09/19 17:30 03/09/19 17:29 Bisacodyl (Dulcolax) 10 mg HSPRN PRN RECTAL Constipation 02/09/19 18:00 03/09/19 17:59 Dextrose (Dextrose 50%) 25 ml Q30M PRN IV Hypoglycemia 02/09/19 17:15 03/09/19 18:44 Dextrose (Dextrose 50%) 50 ml Q30M PRN IV Hypoglycemia 02/09/19 17:15 03/09/19 18:44 Diphenhydramine HCl (Benadryl) 25 mg Q6H PRN ORAL Itching/Pruritis 02/09/19 18:00 03/09/19 17:59 02/09/19 21:01 Docusate Sodium (Colace) 100 mg TID ORAL 02/09/19 18:00 03/09/19 20:59 02/13/19 12:45 Folic Acid (Folate) 1 mg DAILY ORAL 02/10/19 09:00 03/11/19 08:59 02/13/19 09:34 Heparin Sodium (Porcine) (Heparin 5000 units/ml) 5,000 units EVERY 12 HOURS SUBQ 02/09/19 21:00 03/09/19 20:59 02/13/19 09:38 Lorazepam (Ativan) 1 mg Q4H PRN ORAL For Anxiety 02/09/19 18:00 02/14/19 17:59 Magnesium Hydroxide (Mom) 30 ml HSPRN PRN ORAL Constipation 02/09/19 21:00 03/09/19 20:59 Ondansetron HCl (Zofran) 4 mg Q6H PRN IVP Nausea & Vomiting 02/09/19 18:00 03/09/19 17:59 Pantoprazole (Protonix) 40 mg DAILY ORAL 02/10/19 09:00 03/10/19 08:59 02/13/19 09:34 Potassium Chloride (K-Dur) 40 meq DAILY ORAL 02/10/19 09:00 03/11/19 09:44 02/13/19 09:35 Temazepam (Restoril) 15 mg HSPRN PRN ORAL Insomnia 02/09/19 21:00 02/14/19 20:59 02/09/19 21:01 Thiamine HCl (Vitamin B1) 100 mg DAILY ORAL 02/10/19 09:00 03/11/19 08:59 02/13/19 09:34 Laboratory Tests 02/13/19 05:30: White Blood Count 8.0, Red Blood Count 3.13L, Hemoglobin 9.4L, Hematocrit 29.9L , Mean Corpuscular Volume 96, Mean Corpuscular Hemoglobin 30.1, Mean Corpuscular Hemoglobin Concent 31.5L, Red Cell Distribution Width 13.1, Platelet Count 242, Mean Platelet Volume 5.1L, Neutrophils (%) (Auto) 59.1, Lymphocytes (%) (Auto) 18.9L, Monocytes (%) (Auto) 8.9, Eosinophils (%) (Auto) 12.3H, Basophils (%) (Auto) 0.7, Sodium Level 138, Potassium Level 3.9, Chloride Level 106, Carbon Dioxide Level 27, Anion Gap 5, Blood Urea Nitrogen 16 , Creatinine 1.0, Estimat Glomerular Filtration Rate > 60, Glucose Level 99, Calcium Level 8.5, Phosphorus Level 4.3, Magnesium Level 2.0, Total Bilirubin 0.3, Aspartate Amino Transf (AST/SGOT) 19, Alanine Aminotransferase (ALT/SGPT) 11L, Alkaline Phosphatase 73, Total Protein 6.7, Albumin 2.7L, Globulin 4.0, Albumin/Globulin Ratio 0.7L Height (Feet): 5 Height (Inches): 9.00 Weight (Pounds): 168 General Appearance: no apparent distress Objective no change Parth Wright MD Feb 13, 2019 13:30
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
[2019-02-13 16:00] VITALS: BP 133/77
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
--- NOTE | 2019-02-13 19:32 | NUR ---
HAND-OFF: Report given to DAYDAY Roberto.
[2019-02-13 20:00] VITALS: BP 128/65
--- NOTE | 2019-02-13 20:07 | NUR ---
NURSE NOTES: Received patient in bed, awake, alert, oriented x 3/4, on room air, ambulates with steady gate, no acute distress noted, call light is within reach, bed is locked, lowered and alarm is on. Will continue to monitor for safety and comfort.
[2019-02-14] VITALS (7 sets, daily range): BP systolic 112–148; BP diastolic 66–81
--- NOTE | 2019-02-14 06:46 | NUR ---
HAND-OFF: Report given to Sherlyn NAYLOR.
--- NOTE | 2019-02-14 08:01 | NUR ---
NURSE NOTES: received report from DAYDAY Roberto. patient in bed. alert oriented. verbally responsive. no respiratory distress noted. no c/o pain at this time. dressing s/p surgery on rt forehead, intact. no bleeding noted. IV on RFA24 saline lock intact. flushed. ambulatory. call light within reach. bed in the lowest position. will continue to provide plan of care.
[2019-02-14] MEDS: Thiamine 100mg tab ORAL SCH (08:23)
[2019-02-14] MEDS: Docusate 100mg cap ORAL SCH ×3 (08:23→17:25)
[2019-02-14] MEDS: Heparin 5000 units/ml inj SUBQ SCH ×2 (08:25→21:21)
--- NOTE | 2019-02-14 10:08 | NUR ---
CASE MANAGEMENT:REVIEW 02/14/19 SI:HEAD TRAUMA...S/P EXCISION OF RT FOREHEAD TUMOR POD #6 HYPONATREMIA. 98.1 72 18 112/66 99% ON RA IS: FOLATE PO QD PROTONIX PO QD K-DUR PO QD THIAMINE PO QD HEPARIN SQ Q12 :TELEMETRY STATUS DCP: HOMELESS PLAN: DAILY DRESSING CHANGES WITH SALINE, 4X4 AND PAPER TAPE HOMELESS COORDINATOR FOR DISCHARGE
--- NOTE | 2019-02-14 11:33 | Discharge Instructions ---
Discharge Instructions Discharge Instructions Services at Discharge: other - daily dressing change with NS and 4 x 4 gauze in the forehead Diet: 2 GM sodium (low sodium) Resume Normal Activity?: Yes Activity: resume normal activities For Surgical Patients Dressing Care: may change May shower: Yes Contact your physician for: bleeding, pain, redness, yellowish discharge in the op. site For Congestive Heart Failure Reminder Report to your physician any weight gain of 5 pounds or more in one week. Sarika Curtis MD Feb 14, 2019 11:33
[2019-02-14] MEDS ORDERED: ACETAMINOPHEN325 M1 ORAL ×2 (11:34→13:54)
--- NOTE | 2019-02-14 13:16 | Nephrology Progress Note ---
Assessment/Plan Problem List: (1) Hyponatremia (2) Fall (3) Forehead trauma (4) Forehead laceration (5) Anemia (6) ETOH abuse Assessment HypoNatremia, was likely depletional & Dehydration corrected now Anemia Low b12 ETOH Abuse Plan B complex MVT IV iron Monitor H&h and Serum na k supplement DC planning Subjective ROS Limited/Unobtainable: No Objective Objective Last 24 Hour Vital Signs Date Time Temp Pulse Resp B/P (MAP) Pulse Ox O2 Delivery O2 Flow Rate FiO2 02/14/19 12:00 97.9 70 18 125/73 (90) 95 02/14/19 09:00 Room Air 02/14/19 08:00 98.1 72 18 112/66 (81) 99 02/14/19 06:09 98.0 67 18 148/81 (103) 02/14/19 04:00 98.7 67 18 148/81 (103) 02/14/19 00:00 98.1 70 20 135/78 (97) 02/13/19 21:00 Room Air 02/13/19 20:00 98.8 78 18 128/65 (86) 02/13/19 16:00 97.6 79 18 133/77 (95) 100 Intake and Output 02/13/19 02/14/19 19:00 07:00 Intake Total 840 ml Balance 840 ml Intake Oral 840 ml # Voids 3 Current Medications Medications (Trade) Dose Ordered Sig/Tyrell Route PRN Reason Start Time Stop Time Status Last Admin Dose Admin Acetaminophen (Tylenol) 650 mg Q4H PRN ORAL Mild Pain (Pain Scale 1-3) 02/09/19 17:30 03/09/19 17:29 02/13/19 20:50 Bisacodyl (Dulcolax) 10 mg HSPRN PRN RECTAL Constipation 02/09/19 18:00 03/09/19 17:59 Docusate Sodium (Colace) 100 mg TID ORAL 02/09/19 18:00 03/09/19 20:59 02/14/19 12:16 Heparin Sodium (Porcine) (Heparin 5000 units/ml) 5,000 units EVERY 12 HOURS SUBQ 02/09/19 21:00 03/09/19 20:59 02/14/19 08:25 Lorazepam (Ativan) 1 mg Q4H PRN ORAL For Anxiety 02/09/19 18:00 02/14/19 17:59 Magnesium Hydroxide (Mom) 30 ml HSPRN PRN ORAL Constipation 02/09/19 21:00 03/09/19 20:59 Ondansetron HCl (Zofran) 4 mg Q6H PRN IVP Nausea & Vomiting 02/09/19 18:00 03/09/19 17:59 Pantoprazole (Protonix) 40 mg DAILY ORAL 02/10/19 09:00 03/10/19 08:59 02/14/19 08:23 Potassium Chloride (K-Dur) 40 meq DAILY ORAL 02/10/19 09:00 03/11/19 09:44 02/14/19 08:23 Temazepam (Restoril) 15 mg HSPRN PRN ORAL Insomnia 02/09/19 21:00 02/14/19 20:59 02/09/19 21:01 Thiamine HCl (Vitamin B1) 100 mg DAILY ORAL 02/10/19 09:00 03/11/19 08:59 02/14/19 08:23 Height (Feet): 5 Height (Inches): 9.00 Weight (Pounds): 168 General Appearance: no apparent distress Objective no change Parth Wright MD Feb 14, 2019 13:16
--- NOTE | 2019-02-14 14:10 | NUR ---
NURSE NOTES: Dr. agustin ordered discharge today but patient refused to sign on discharge paper. patient states he would go to the [facility]. notified dr. agustin. and he will see the patient soon.
--- NOTE | 2019-02-14 14:50 | NUR ---
NURSE NOTES: seen by Dr. Curtis. patient c/o pain on rt hip bone area. ordered x ray bilateral hip/pelvis on 02/15/19. order noted and carried out.
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
--- NOTE | 2019-02-14 15:16 | NUR ---
*-* INSURANCE *-* ALL CLINICALS AND REVIEWS HAVE BEEN FAXED TO: INSURANCE INFO [facility] SIRISHA SAMUEL T: [phone] F: [phone]
--- NOTE | 2019-02-14 15:46 | Neurology Progress Note ---
Interim History Interim History ROS Limited/Unobtainable: No Interim History unsteady walk with hip pain Objective Physical Exam Last Vital Signs Date Time Temp Pulse Resp B/P (MAP) Pulse Ox O2 Delivery O2 Flow Rate FiO2 02/14/19 12:00 97.9 70 18 125/73 (90) 95 02/14/19 09:00 Room Air General: well developed Neurologic Exam Mental Status: awake, alert, normal cognition, good mathematical skills, normal recent memory, normal remote memory, preserved visuospatial function Speech: normal speech, no dysarthia Language: normal language, no aphasia Cranial Nerves III, IV, : PERRLA Cranial Nerve V: normal facial sensations Motor System: normal muscle tone, strength 5/5, no involuntary movement, no muscle wasting Coordination: normal finger to nose bilaterally, normal heel to plata bilaterally, negative Romberg test Impression/Recommendations Problems: (1) Hyponatremia (2) Fall (3) Head trauma Status: stable Recommendations monitor neuro status - non focal now no need for AEDs PT OT for dispo Kota Burch MD Feb 14, 2019 15:46
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
--- NOTE | 2019-02-14 19:23 | NUR ---
HAND-OFF: Report given to DAYDAY Schaefer.
--- NOTE | 2019-02-14 20:28 | NUR ---
NURSE NOTES: Patient in bed, awake, alert and verbally responsive. Able to make needs known. Alert x 3 with periods of confusion. IV site noted. on the right forearm. No complaint of pain or discomfort noted at this time. Abdomen is soft and non distended. Respiration is even and unlabored. Bed in low and locked position. Provided safe environment. Call light is at bedside. Will continue plan of care.
[2019-02-15] VITALS: BP 125/63
--- NOTE | 2019-02-15 01:45 | Progress Note ---
DATE: 02/14/2019 SUBJECTIVE: The patient was in bed, in no acute distress. Sleep closable. The patient was able to answer the questions. Presents with cognitive impairment and anxiety. MENTAL STATUS EXAMINATION: The patient is alert and oriented times self and place. Mood is anxious. Affect is constricted. Congruent with mood. Thought process is concrete. Thought content, no suicidal or homicidal ideation. ASSESSMENT: 1. Alcohol abuse. 2. Anxiety disorder. PLAN: We will continue on current medication. We will continue to follow and readjust the medication. Fish Cavanaugh M.D. DR: BRYCE JOB#: [id number] CC:
[2019-02-15 04:00] VITALS: BP 125/79
[2019-02-15 06:25] LABS: BASOPHILS % (AUTO) 0.8 % (0.0-2.0); EOSINOPHILS % (AUTO) 10.5 % (0.0-3.0); HEMATOCRIT 29.6 % (42.0-52.0); HEMOGLOBIN 9.3 G/DL (14.2-18.0); LYMPHOCYTES % (AUTO) 22.7 % (20.0-45.0); MEAN CORPUSCULAR VOLUME 97 FL (80-99); MONOCYTES % (AUTO) 6.8 % (1.0-10.0); NEUTROPHILS % (AUTO) 59.1 % (45.0-75.0); PLATELET COUNT 240 K/UL (150-450); RED BLOOD COUNT 3.06 M/UL (4.70-6.10); RED CELL DISTRIBUTION WIDTH 12.9 % (11.6-14.8); WHITE BLOOD COUNT 7.8 K/UL (4.8-10.8)
[2019-02-15 06:53] LABS: ANION GAP 6 mmol/L (5-15); BLOOD UREA NITROGEN 18 mg/dL (7-18); CALCIUM 8.8 MG/DL (8.5-10.1); CARBON DIOXIDE 27 MMOL/L (21-32); CHLORIDE 109 MMOL/L (98-107); POTASSIUM 4.1 MMOL/L (3.5-5.1); SODIUM 142 MMOL/L (136-145)
--- NOTE | 2019-02-15 06:59 | NUR ---
HAND-OFF: Report given to Adri Davis.
[2019-02-15 08:00] VITALS: BP 134/70
[2019-02-15] MEDS: Docusate 100mg cap ORAL SCH ×3 (08:16→17:02)
[2019-02-15] MEDS: Thiamine 100mg tab ORAL SCH (08:16)
[2019-02-15] MEDS: Heparin 5000 units/ml inj SUBQ SCH (08:24)
--- NOTE | 2019-02-15 09:23 | NUR ---
RADIOLOGY DEPT., BILATERAL HIPS WITH PELVIS X-RAY COMPLETED BY BRENNEN SCHILLING (Yulia)
--- NOTE | 2019-02-15 09:31 | NUR ---
NURSE NOTES: PT AXOX4, CALM, RESTING IN BED. IN NO APPARENT DISTRESS AT THIS TIME. BED IN LOWEST POSITION WITH BEDSIDE RAILS X3 RAISED. PT EDUCATED ON FALL/SAFETY PRECAUTIONS. PT EDUCATED NOT TO WALK INDEPENDENTLY, USE CALL LIGHT FOR ASSISTANCE. PT VERBALIZED UNDERSTANDING. CALL LIGHT WITHIN REACH. WILL CONTINUE TO MONITOR.
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
[2019-02-15 12:00] VITALS: BP 123/76
--- NOTE | 2019-02-15 13:17 | Diagnostic Imaging Report ---
Indications: hip pain Findings: 2 views of both hips were obtained. There is no fracture or malalignment identified. There is a sclerotic fairly well-circumscribed lesion in the left femoral neck. This is incidental. There are degenerative changes of the lower lumbar spine noted characterized by endplate and facet osteophytes and narrowing of the disc space. IMPRESSION: No acute injury. Incidental ovoid sclerotic lesion in the left femoral neck likely benign. This may be a bone infarct or enchondroma. Lower lumbar spondylosis
--- NOTE | 2019-02-15 13:24 | NUR ---
NURSE NOTES: RN SPOKE TO JASON, PHYSICAL THERAPIST, WHO CLEARED PT. PT'S XR BILATERAL HIPS NEGATIVE FOR ACUTE INJURY. RN LEFT MESSAGE FOR DR FALLON REGARDING UPDATES AND IF PT CLEARED FOR DISCHARGE. PT STATES HE DOES NOT WANT TO GO TO A GROUP HOME OR WANT PLACEMENT. PT STATES HE WILL GO BACK TO THE PARK HE STAYED PREVIOUSLY. AWAITING CLEARANCE FOR DISCHARGE PER DR FALLON.
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
--- NOTE | 2019-02-15 15:22 | Nephrology Progress Note ---
Assessment/Plan Problem List: (1) Hyponatremia (2) Fall (3) Forehead trauma (4) Forehead laceration (5) Anemia (6) ETOH abuse Assessment HypoNatremia, was likely depletional & Dehydration corrected now Anemia Low b12 ETOH Abuse Plan B complex MVT IV iron Monitor H&h and Serum na k supplement DC planning Subjective ROS Limited/Unobtainable: No Objective Objective Last 24 Hour Vital Signs Date Time Temp Pulse Resp B/P (MAP) Pulse Ox O2 Delivery O2 Flow Rate FiO2 02/15/19 12:00 97.8 77 18 123/76 (92) 100 02/15/19 09:00 Room Air 02/15/19 08:00 97.7 85 18 134/70 (91) 98 02/15/19 04:00 98.1 71 20 125/79 (94) 100 02/15/19 00:00 97.7 78 20 125/63 (83) 98 02/14/19 21:00 Room Air 02/14/19 20:00 98.3 74 20 130/72 (91) 96 02/14/19 16:00 97.9 82 18 120/69 (86) 100 Intake and Output 02/14/19 02/15/19 19:00 07:00 Intake Total 800 ml 600 ml Balance 800 ml 600 ml Intake Oral 800 ml 600 ml # Voids 4 2 # Bowel Movements 1 Laboratory Tests 02/15/19 05:18: White Blood Count 7.8, Red Blood Count 3.06L, Hemoglobin 9.3L, Hematocrit 29.6L , Mean Corpuscular Volume 97, Mean Corpuscular Hemoglobin 30.3, Mean Corpuscular Hemoglobin Concent 31.3L, Red Cell Distribution Width 12.9, Platelet Count 240, Mean Platelet Volume 5.3L, Neutrophils (%) (Auto) 59.1, Lymphocytes (%) (Auto) 22.7, Monocytes (%) (Auto) 6.8, Eosinophils (%) (Auto) 10.5H, Basophils (%) (Auto) 0.8, Sodium Level 142, Potassium Level 4.1, Chloride Level 109H, Carbon Dioxide Level 27, Anion Gap 6, Blood Urea Nitrogen 18, Creatinine 1.0, Estimat Glomerular Filtration Rate > 60, Glucose Level 99, Calcium Level 8.8 Height (Feet): 5 Height (Inches): 9.00 Weight (Pounds): 168 General Appearance: no apparent distress Objective no change Parth Wright MD Feb 15, 2019 15:22
--- NOTE | 2019-02-15 15:25 | NUR ---
P.T NOTE: P.T EVALUATION COMPLETED. PATIENT IS BASELINE INDEPENDENT WITH ADL/FUNCTIONAL MOBILITIES AN GAIT/LOCOMOTION . ENCOURAGED PATIENT OOB ACTIVITIES VS BED REST UNLESS OTHERWISE ORDERED TO PREVENT DECONDITIONING DURING HOSPITAL STAY. PATIENT VERBALIZED UNDERSTANDING. NO FURTHER P.T FOLLOW UP NEEDED. D/C P.T SERVICES , THANK YOU FOR THIS REFERRAL.
--- NOTE | 2019-02-15 15:46 | NUR ---
*-* INSURANCE *-* UPDATED CLINICALS AND REVIEWS HAVE BEEN FAXED TO: INSURANCE INFO [facility] SIRISHA SAMUEL T: [phone] F: [phone]
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
[2019-02-15 16:00] VITALS: BP 140/66
--- NOTE | 2019-02-15 16:11 | NUR ---
NURSE NOTES: DR FALLON AT BEDSIDE AND CLEARED PT FOR DISCHARGE. PT MADE AWARE OF DISCHARGE AND AGREES. PT REFUSES GROUP HOME SERVICES AGAIN. PT STATES HE WILL BE GOING TO [place] VIA BUS. PT HAS BUS MONEY. BELONGINGS CHECKED AT BEDSIDE. PT STATES HE HAS ALL $192 BUT DOES NOT WANT TO REVIEW THE [place]. PT STATES HE HAS ALL BELONGINGS HE ARRIVED WITH AND SIGNED BELONGINGS SHEET. PT WAS EDUCATED ON WOUND CARE OF RIGHT FOREHEAD AND SUPPLIES PROVIDED. PT VERBALIZED UNDERSTANDING. PT STATES HE WILL BE LEAVING AFTER DINNER. CRN MADE AWARE.
--- NOTE | 2019-02-15 17:15 | Progress Note ---
DATE: 02/15/2019 SUBJECTIVE: The patient is calm, cooperative, and is able to answer the question more clearly. The patient is not suicidal or homicidal. The patient is not an imminent danger to self or others. MENTAL STATUS EXAMINATION: The patient is alert and oriented times self, place, and situation he is in. Mood is neutral. Affect is constricted. Congruent with mood. Thought process is linear and goal oriented. Thought content, no suicidal or homicidal ideations. Cognition is intact. ASSESSMENT: Alcohol abuse and anxiety disorder. PLAN: The patient is not an imminent danger to self or others. The patient may be discharged when medically cleared. Fish Cavanaugh M.D. DR: BRYCE JOB#: [id number] CC:
--- NOTE | 2019-02-15 18:23 | NUR ---
NURSE NOTES: PT STATES HE WILL LEAVE AT 8:00 PM. RN EDUCATED PT IT IS TOO DARK TO LEAVE THAT LATE. PT STATES HE FEELS MORE COMFORTABLE LEAVING AT 8:00PM. CRN MADE AWARE.
--- NOTE | 2019-02-15 19:19 | NUR ---
HAND-OFF: Report given to Thelma GARCIA RN.
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
--- NOTE | 2019-02-15 20:04 | Neurology Progress Note ---
Interim History Interim History ROS Limited/Unobtainable: No Interim History pain controlled, alert oriented Objective Physical Exam Last Vital Signs Date Time Temp Pulse Resp B/P (MAP) Pulse Ox O2 Delivery O2 Flow Rate FiO2 02/15/19 16:00 97.9 84 18 140/66 (90) 97 02/15/19 09:00 Room Air Laboratory Tests Test 02/15/19 05:18 White Blood Count 7.8 K/UL (4.8-10.8) Red Blood Count 3.06 M/UL (4.70-6.10) L Hemoglobin 9.3 G/DL (14.2-18.0) L Hematocrit 29.6 % (42.0-52.0) L Mean Corpuscular Volume 97 FL (80-99) Mean Corpuscular Hemoglobin 30.3 PG (27.0-31.0) Mean Corpuscular Hemoglobin Concent 31.3 G/DL (32.0-36.0) L Red Cell Distribution Width 12.9 % (11.6-14.8) Platelet Count 240 K/UL (150-450) Mean Platelet Volume 5.3 FL (6.5-10.1) L Neutrophils (%) (Auto) 59.1 % (45.0-75.0) Lymphocytes (%) (Auto) 22.7 % (20.0-45.0) Monocytes (%) (Auto) 6.8 % (1.0-10.0) Eosinophils (%) (Auto) 10.5 % (0.0-3.0) H Basophils (%) (Auto) 0.8 % (0.0-2.0) Sodium Level 142 MMOL/L (136-145) Potassium Level 4.1 MMOL/L (3.5-5.1) Chloride Level 109 MMOL/L (98-107) H Carbon Dioxide Level 27 MMOL/L (21-32) Anion Gap 6 mmol/L (5-15) Blood Urea Nitrogen 18 mg/dL (7-18) Creatinine 1.0 MG/DL (0.55-1.30) Estimat Glomerular Filtration Rate > 60 mL/min (>60) Glucose Level 99 MG/DL (74-106) Calcium Level 8.8 MG/DL (8.5-10.1) General: well developed Neurologic Exam Mental Status: awake, alert, normal cognition, good mathematical skills, normal recent memory, normal remote memory, preserved visuospatial function Speech: normal speech, no dysarthia Language: normal language, no aphasia Cranial Nerves III, IV, : PERRLA Cranial Nerve V: normal facial sensations Motor System: normal muscle tone, strength 5/5, no involuntary movement, no muscle wasting Coordination: normal finger to nose bilaterally, normal heel to plata bilaterally, negative Romberg test Impression/Recommendations Problems: (1) Hyponatremia (2) Fall (3) Head trauma Status: stable Recommendations monitor neuro status - non focal now no need for AEDs PT OT for dispo Kota Burch MD Feb 15, 2019 20:04
== END 2019-02-15 20:00 | disposition home or self-care (01) | DRG 571 ==
LOC: EDBD 15:25 → EMR 16:00 → 2E 17:06 → EDBEDREQ 18:49 → 4E 02-09 17:11
PROC: 0JB10ZZ Excision of Face Subcutaneous Tissue and Fascia, Open Approach (ICD-10-PCS; principal; 2019-02-08)
DX: S01.91XA Laceration without foreign body of unspecified part of head, initial encounter (principal); E87.1 Hypo-osmolality and hyponatremia; Y08.02XA Assault by strike by baseball bat, initial encounter; Z59.0 Homelessness; D23.39 Other benign neoplasm of skin of other parts of face; M25.551 Pain in right hip; E86.0 Dehydration; D64.9 Anemia, unspecified; F10.10 Alcohol abuse, uncomplicated; F41.9 Anxiety disorder, unspecified
CPT/HCPCS: 36415; 70450; 71045; 73521; 80048; 80053; 80061; 80307; 80329; 81001; 82306; 82550; 82553; 82607; 82728; 82746; 82977; 83036; 83540; 83550; 83735; 83880; 83930; 83935; 84100; 84300; 84484; 84550; 85007; 85025; 86140; 87081; 90471; 90715; 93005; 96360; 99291; J8499

== ENCOUNTER 2019-02-21 18:21 | Emergency (ER) | payer MEDICARE, MEDICAID ==
[~2019-02-21] VITALS: Ht 175.3 cm; Wt 75.7 kg
[~2019-02-21 18:21] MED LIST: ACETAMINOPHEN325 M1 ORAL; NORCO 5-325 TA1 EACH ORAL
[2019-02-21] MEDS ORDERED: NKM (18:23)
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
[2019-02-21 18:37] VITALS: BP 131/70
[2019-02-21] MEDS ORDERED: Methocarbamol 750mg tab ORAL ONE (19:00)
[2019-02-21] MEDS ORDERED: Ketorolac 30mg Inj IM ONE (19:00)
--- NOTE | 2019-02-21 19:23 | NUR ---
ED Nurse Note Tryed to provide shoes to the patient, stated that wants different color and different desighn.
[2019-02-21] MEDS ORDERED: LIDODERM700 M1 TOPIC (19:40)
[2019-02-21] MEDS ORDERED: ROBAXIN-750750 MG PO (19:40)
[2019-02-21] MEDS ORDERED: TYLENOL EXTRA500 MG ORAL (19:40)
[2019-02-21 19:45] VITALS: BP 131/70
--- NOTE | 2019-02-21 20:14 | NUR ---
Homeless Discharge: Patient is being discharged from medical care. Awake, alert and oriented x4. After care instructions, including referral to community resources were given. Patient verbalized understanding of After care instructions; at this time patient does not request equipment or placement. Patient signed patient consent in the medical record for patient destination upon discharge. All medical devices such as IV and ID band were removed. Patient ambulated out with all personal belongings with steady gait. Pt was provided with prescription as he refused his meds to be filled.
--- NOTE | 2019-02-21 20:14 | NUR ---
ED Nurse Note: Pt cleared by health care Provider for discharge. DC instructions/prescription was given and explained to pt and verbalized understanding of teachings. All medical deviecs such as ID band removed. Pt is AAO x4, ambulatory and left with all personal belongings.
--- NOTE | 2019-02-23 16:21 | Emergency Room Report ---
History of Present Illness General Chief Complaint: Lower Back Pain or Injury Source: Patient, Medical Record Present Illness HPI 68-year-old male presents ED for evaluation. Brought in by EMS from Street. Complaining of neck pain. Started this morning after waking up on a park bench. States he is homeless. Denies any fall or injury. Pain is dull, 5 out of 10, nonradiating. Denies neck stiffness. Denies fevers or chills. Denies headache. Denies photophobia blurry vision nausea or vomiting. No other aggravating relieving factors. Denies any other associated symptoms Allergies: Coded Allergies: No Known Allergies (Unverified , 02/07/19) Patient History Past Medical History: HTN, asthma Past Surgical History: none Pertinent Family History: none Social History: Denies: smoking, alcohol use, drug use Immunizations: UTD Reviewed Nursing Documentation: PMH: Agreed; PSxH: Agreed Nursing Documentation-PMH Past Medical History: No History, Except For Hx Cardiac Problems: No Hx Hypertension: Yes Hx Asthma: Yes Hx Cancer: No Hx Gastrointestinal Problems: No Hx Neurological Problems: No Review of Systems All Other Systems: negative except mentioned in HPI Physical Exam Vital Signs Date Time Temp Pulse Resp B/P (MAP) Pulse Ox O2 Delivery O2 Flow Rate FiO2 02/21/19 18:22 99.0 65 18 131/70 (90) 98 Room Air Sp02 EP Interpretation: reviewed, normal General Appearance: no apparent distress, alert, GCS 15, non-toxic Head: normocephalic Eyes: bilateral eye normal inspection, bilateral eye PERRL ENT: hearing grossly normal, normal pharynx, no angioedema, normal voice Neck: full range of motion, supple, no meningismus, no bony tend, supple/symm/ no masses, tender lateral Respiratory: normal inspection Cardiovascular #1: normal inspection Gastrointestinal: normal inspection Rectal: deferred Genitourinary: no CVA tenderness Musculoskeletal: normal inspection Neurologic: alert, oriented x3, responsive, motor strength/tone normal, sensory intact, speech normal Psychiatric: normal inspection Skin: no rash Lymphatic: normal inspection Medical Decision Making Homeless Attestation I, The treating physician Dr. Escobar, have assessed and agrees that patient is medically stable for discharge to an outpatient disposition. Diagnostic Impression: Primary Impression: Cervical strain Qualified Codes: S16.1XXA - Strain of muscle, fascia and tendon at neck level , initial encounter ER Course Hospital Course 68 yo M presents to ED c/o neck pain Differential diagnoses include: neck strain, shoulder strain, dislocation/ fracture Clinical course Patient placed on stretcher. After initial history and physical exam reveals an elderly male in no acute distress. On exam there is no midline neck tenderness or shoulder tenderness. Full range of motion to the shoulder. pain is muscular. No meningismal signs. No focal neurological deficits. Likely from sleeping on a park bench. Given Toradol, Robaxin, Lidoderm and ED. On reassessment pain is improved. Homeless checklist completed. Safe for discharge for close outpatient follow- up. Will provide referrals Diagnosis - neck strain Stable and discharged to home. Followup with PMD. Return to ED if symptoms recur or worsen Last Vital Signs Date Time Temp Pulse Resp B/P (MAP) Pulse Ox O2 Delivery O2 Flow Rate FiO2 02/21/19 19:45 99.0 65 18 131/70 98 Room Air Status: improved Disposition: HOME, SELF-CARE Condition: Stable Scripts Lidocaine (Lidoderm) 1 Each Adh..patch 1 PATCH TOPIC DAILY, #7 PATCH 0 Refills Patch(es) may remain in place for up to 12 hours in any 24-hour period. Prov: Satya Escobar MD 02/21/19 Methocarbamol* (ROBAXIN-750*) 750 Mg Tablet 750 MG PO TID, #21 TAB 0 Refills Prov: Satya Escobar MD 02/21/19 Acetaminophen* (TYLENOL EXTRA STRENGTH*) 500 Mg Tablet 500 MG ORAL Q8H PRN for Prn Headache/Temp > 101, #30 TAB 0 Refills Prov: Satya Escobar MD 02/21/19 Referrals: [facility]une[facility]. [facility] Patient Instructions: Cervical Strain and Sprain With Rehab-[facility] Satya Escobar MD Feb 23, 2019 16:21
== END 2019-02-21 19:45 | disposition home or self-care (01) ==
LOC: EDUNIT# 18:21 → EDBD 18:21 → EMR 18:40
DX: S16.1XXA Strain of muscle, fascia and tendon at neck level, initial encounter (principal); X58.XXXA Exposure to other specified factors, initial encounter; Y92.830 Public park as the place of occurrence of the external cause; Z59.0 Homelessness; I10 Essential (primary) hypertension; J45.909 Unspecified asthma, uncomplicated
CPT/HCPCS: 96372; 99283; J1885

== ENCOUNTER 2019-09-09 23:16 | Emergency (ER) | payer MEDICARE, MEDICAID ==
[~2019-09-09] VITALS: Ht 170.2 cm; Wt 68.0 kg
[~2019-09-09 23:16] MED LIST changes: +IBUPROFEN600 MG ORAL; +LIDODERM700 M1 TOPIC; +NKM; +ROBAXIN-750750 MG PO; +TYLENOL EXTRA500 MG ORAL
[2019-09-09] MEDS ORDERED: IBUPROFEN600 MG ORAL (23:34)
[2019-09-09] MEDS ORDERED: ALBUTEROL SULF8.5 GM INH (23:34)
--- NOTE | 2019-09-09 23:35 | Emergency Room Report ---
History of Present Illness General Chief Complaint: Back Pain-No Injury Source: Patient Present Illness HPI This is a 69-year-old male with history of back pain. He said he has had x- rays in a while. No trauma. Is a chronic problem getting worse there is pain to the lower back. No radiation. Pain is 9 out of 10 but no nausea no vomiting. No fever chills. Also said that no one has x-rayed in a while. He want some x-rays done. He has no trauma but no incontinence of bowel or urine. Also said that when he went to the pharmacy for an albuterol the pharmacist will give it to him. He was told that he needed prescription first. He has multiple different pain complaints. Allergies: Coded Allergies: No Known Allergies (Unverified , 02/07/19) Patient History Past Medical History: see triage record, old chart reviewed, HTN, asthma Past Surgical History: none Pertinent Family History: none Social History: Denies: smoking Immunizations: other Reviewed Nursing Documentation: PMH: Agreed; PSxH: Agreed Nursing Documentation-PMH Hx Cardiac Problems: No Hx Hypertension: Yes Hx Asthma: Yes Hx Cancer: No Hx Gastrointestinal Problems: No Hx Neurological Problems: No Review of Systems Eye: Denies: eye pain, blurred vision ENT: Denies: ear pain, nose congestion, throat swelling Respiratory: Denies: cough, shortness of breath Cardiovascular: Denies: chest pain, palpitations Gastrointestinal: Denies: abdominal pain, diarrhea, nausea, vomiting Musculoskeletal: Denies: back pain, joint pain Skin: Denies: rash Neurological: Denies: headache, numbness Endocrine: Denies: increased thirst, increased urine Hematologic/Lymphatic: Denies: easy bruising All Other Systems: negative except mentioned in HPI Physical Exam Vital Signs Date Time Temp Pulse Resp B/P (MAP) Pulse Ox O2 Delivery O2 Flow Rate FiO2 09/09/19 23:17 97.5 94 16 164/85 (111) 96 Room Air Vitals with high blood pressure Sp02 EP Interpretation: reviewed, normal General Appearance: well appearing, no apparent distress, alert Head: normocephalic, atraumatic Eyes: bilateral eye PERRL, bilateral eye EOMI ENT: hearing grossly normal, normal pharynx Neck: full range of motion, supple, no meningismus Respiratory: chest non-tender, lungs clear, normal breath sounds Cardiovascular #1: regular rate, rhythm, no murmur Gastrointestinal: normal bowel sounds, non tender, no mass, no organomegaly, no bruit, non-distended Musculoskeletal: back normal, normal range of motion, gait/station normal Psychiatric: mood/affect normal Medical Decision Making Diagnostic Impression: Primary Impression: Back pain Qualified Codes: M54.5 - Low back pain; G89.29 - Other chronic pain Additional Impression: Asthma Qualified Codes: J45.20 - Mild intermittent asthma, uncomplicated ER Course Patient presents with exacerbation of chronic pain. He also wants a refill on albuterol. Not wheezing here. No acute process. I ordered x-rays. No acute finding. Other X-Ray Diagnostic Results Other X-Ray Diagnostic Results : X-Ray ordered: Lumbar x-rays # of Views/Limited Vs Complete: 3 View Indication: Pain EP Interpretation: Yes Interpretation: no dislocation, no soft tissue swelling, no fractures, other - degenerative changes Impression: Other - degenerative changes Electronically Signed by: Shai Gomez MD Last Vital Signs Date Time Temp Pulse Resp B/P (MAP) Pulse Ox O2 Delivery O2 Flow Rate FiO2 09/09/19 23:17 97.5 94 16 164/85 (111) 96 Room Air Status: improved Disposition: HOME, SELF-CARE Condition: Stable Scripts Ibuprofen* (MOTRIN*) 600 Mg Tablet 600 MG ORAL THREE TIMES A DAY, #30 TAB 0 Refills Prov: Shai Gomez MD 09/09/19 Albuterol Sulfate* (ALBUTEROL SULFATE MDI*) 8.5 Gm Hfa.aer.ad 2 PUFF INH Q4H PRN for cough/wheezing, #1 EA 0 Refills Prov: Shai Gomez MD 09/09/19 Patient Instructions: Back Pain, Adult Additional Instructions: Follow-up with your doctor in 7 days. Return if symptoms worsen. Shai Gomez MD Sep 09, 2019 23:35
[2019-09-09 23:37] VITALS: BP 164/85
--- NOTE | 2019-09-09 23:55 | NUR ---
ED Nurse Note: Patient was BIBA from street due to body pain. AAO x4, VSS at this time.
--- NOTE | 2019-09-10 13:26 | Diagnostic Imaging Report ---
Indication: Back pain Comparison: None Findings: 3 views of the lumbar spine were obtained. There is a moderate to severe degenerative disease in the lower part of lumbar spine with severe narrowing of intervertebral discs at L4-5 and L5-S1 moderate narrowing at L2-3 and L3-4. Extensive endplate osteophytes are present at L4-5. There is no obvious fracture. There is no obvious malalignment. There is sclerosis of the lumbar facets. IMPRESSION: Severe degenerative changes of the lumbar spine as described above
== END 2019-09-10 00:13 | disposition home or self-care (01) ==
LOC: EDUNIT# 23:16 → EDBD 23:16 → EMR 23:30
DX: M54.5 Low back pain (principal); G89.29 Other chronic pain; J45.20 Mild intermittent asthma, uncomplicated; I10 Essential (primary) hypertension; Z79.51 Long term (current) use of inhaled steroids
CPT/HCPCS: 72020; 99283

== ENCOUNTER 2019-09-11 01:51 | Emergency (ER) | payer MEDICARE, MEDICAID ==
[~2019-09-11] VITALS: Ht 175.3 cm; Wt 79.4 kg
[~2019-09-11 01:51] MED LIST changes: +ALBUTEROL SULF8.5 GM INH
[2019-09-11 02:00] VITALS: BP 161/87
--- NOTE | 2019-09-11 02:00 | NUR ---
ED Nurse Note: Pt ambulated to ED from the streets, pt states he has a residence but doesn't want to stay there. Offred him resources, he refused, states he wants to speak to a director social. VSS A&OX2
--- NOTE | 2019-09-11 02:30 | Emergency Room Report ---
History of Present Illness General Chief Complaint: General Complaint Source: Patient Present Illness HPI Disclaimer: Please note that this report is being documented using [employer] technology. This can lead to erroneous entry secondary to incorrect interpretation by the dictating instrument. HPI: 69-year-old homeless male presents requesting somewhere to sleep. Patient was complaining initially of fever though he states he does not know when it started and is not currently febrile. He has not taken any medications and arrives afebrile. He denies cough, vomiting, diarrhea or other changes in his health. He is requesting blood pressure medications but cannot recall what he is taking. He does not know if he has been prescribed a by physician. He is also requesting to speak to his social psychologist not just any social psychologist. He does not want to be taken to a fci. Like to sleep here since it is cold outside. No other complaints noted. He was in the emergency department last night as well. PMH: Asthma Allergies: None reported Allergies: Coded Allergies: No Known Allergies (Unverified , 02/07/19) Nursing Documentation-PMH Hx Cardiac Problems: No Hx Hypertension: Yes Hx Asthma: Yes Hx Cancer: No Hx Gastrointestinal Problems: No Hx Neurological Problems: No Review of Systems All Other Systems: negative except mentioned in HPI Physical Exam Vital Signs Date Time Temp Pulse Resp B/P (MAP) Pulse Ox O2 Delivery O2 Flow Rate FiO2 09/11/19 01:53 97.3 68 19 161/87 (111) 100 Room Air General: Awake and alert, no acute distress, afebrile HEENT: NC/AT. EOMI. Cardiovascular: RRR. S1 and S2 normal. No murmur appreciated Resp: Normal work of breathing. No cough, wheezing or crackles appreciated Skin: Intact. No abrasions, laceration or rash over the exposed skin MSK: Normal tone and bulk. Moving all extremities. No obvious deformity. Neuro: Awake and alert. Mentating appropriately. Medical Decision Making Homeless Attestation Patient has been medically screened and is stable for outpatient follow up Diagnostic Impression: Primary Impression: Hypertension ER Course 69-year-old male presents to the emergency department initially complaining of fever now requesting somewhere to sleep. Patient is afebrile and states he took no medication prior to arrival. He has no symptoms or other source of fever. He was seen in the emergency department yesterday. He states he is homeless and does not want to go to a fci. He is also asking to speak with his social psychologist for placement into an adult assisted living facility. Explained to them that we do not have social work available at this time though he is only requesting to speak with his social psychologist stating that she should come into the ER and see him here. He does not want to be taken to a fci. He is hypertensive but asymptomatic. Does not know what medications he is taking reviewed with his medical chart does not show he has been prescribed antihypertensives in the past. He can follow-up with clinic. Patient will be discharged. Last Vital Signs Date Time Temp Pulse Resp B/P (MAP) Pulse Ox O2 Delivery O2 Flow Rate FiO2 09/11/19 01:53 97.3 68 19 161/87 (111) 100 Room Air Disposition: HOME, SELF-CARE Condition: Stable Keaton Mistry MD Sep 11, 2019 02:30
[2019-09-11 02:40] VITALS: BP 161/87
--- NOTE | 2019-09-11 02:40 | NUR ---
ER DISCHARGE NOTE: Patient is cleared to be discharged per ERMD, pt is aox4, on room air, with stable vital signs. pt was given dc and prescription instructions, pt was able to verbalize understanding, pt id band removed. pt is able to ambulate with steady gait. pt took all belongings.
== END 2019-09-11 02:40 | disposition home or self-care (01) ==
LOC: EMR 02:39
DX: I10 Essential (primary) hypertension (principal); Z59.0 Homelessness; R50.9 Fever, unspecified
CPT/HCPCS: 99281

== ENCOUNTER 2019-09-11 06:46 | Emergency (ER) | payer MEDICARE, MEDICAID ==
[~2019-09-11] VITALS: Ht 175.3 cm; Wt 77.1 kg
--- NOTE | 2019-09-11 06:50 | NUR ---
ED Nurse Note: Pt was called, not in the waiting room.
--- NOTE | 2019-09-11 07:04 | NUR ---
ED Nurse Note: Pt ambulated to ED for the second time this shift. Pt wants to speak to a social security benefits interviewer. now c/o bilateral knee pain
--- NOTE | 2019-09-11 07:09 | NUR ---
HAND-OFF: Report given to [facility].
--- NOTE | 2019-09-11 07:36 | Emergency Room Report ---
History of Present Illness General Chief Complaint: Lower Extremity Injury Source: Patient Present Illness HPI Patient was here recently here. appears to have been a miscommunication patient was pending social work discussion However the patient was dispositioned and recheck back into the emergency room does not have any new complaints patient Has had previous visits with low back complaints Patient has similar complaint However this has been addressed with recent x-ray imaging and evaluation Allergies: Coded Allergies: No Known Allergies (Unverified , 02/07/19) Patient History Past Medical History: see triage record Reviewed Nursing Documentation: PMH: Agreed; PSxH: Agreed Nursing Documentation-PMH Hx Cardiac Problems: No Hx Hypertension: Yes Hx Asthma: Yes Hx Cancer: No Hx Gastrointestinal Problems: No Hx Neurological Problems: No Review of Systems All Other Systems: negative except mentioned in HPI Physical Exam Vital Signs Date Time Temp Pulse Resp B/P (MAP) Pulse Ox O2 Delivery O2 Flow Rate FiO2 09/11/19 06:54 97.5 73 19 145/91 (109) 100 Sp02 EP Interpretation: reviewed, normal General Appearance: well appearing, no apparent distress Head: normocephalic, atraumatic Eyes: bilateral eye PERRL, bilateral eye EOMI ENT: hearing grossly normal, EOM grossly intact Neck: supple Respiratory: lungs clear Cardiovascular #1: regular rate, rhythm Musculoskeletal: other - Patient ambulatory, no obvious deficit Neurologic: alert, oriented x3 Psychiatric: normal inspection Skin: no rash Lymphatic: normal inspection Medical Decision Making Diagnostic Impression: Primary Impression: Back pain ER Course After initial discussion and evaluation Patient is dispositioned pending discussion with social work They have been contacted and will assist with further placement and outpatient disposition for the patient Last Vital Signs Date Time Temp Pulse Resp B/P (MAP) Pulse Ox O2 Delivery O2 Flow Rate FiO2 09/11/19 06:54 97.5 73 19 145/91 (109) 100 Status: improved Disposition: HOME, SELF-CARE Condition: Improved Referrals: NOT CHOSEN IPA/MD,REFERRING (PCP) Additional Instructions: Patient was provided with discharge paperwork, educated about findings, verbalizes understanding will require close follow-up in the next 2-3 days with primary physician otherwise return to the ER with any worsening symptoms Melvin Vegas DO Sep 11, 2019 07:36
--- NOTE | 2019-09-11 07:50 | NUR ---
ED Nurse Note: Report given to DAYDAY Ma. Patient is talking to rn social services.
--- NOTE | 2019-09-11 08:01 | NUR ---
GLASS TECHNICIAN NOTE SW was notified that pt requested to see SW. SW met w/ pt and assessed pt's needs. Pt presented as A&O 4x and disheveled. Pt has been homeless for 4 years. Pt currently receives SSI appx $900/mo and he does not have any income left for this month. Pt refused to receive homeless resource packet and the list of winter shelters. Pt reports he will not go to a homeless long-term therefore he does not need the list. Pt initially informed SW that he will go to [facility] office on [facility] [facility]. Pt later informed SW that [facility] [place] [id number] [facility] [place] [address]. SW informed pt the hospital cannot make a referral to SNF as he does not meet the criteria. Pt verbalized understanding. SW explained the criteria and admission process of SNF. However,pt is adamant that he will go to this specific location and ask the facility directly. LACY informed pt's DC plan to [facility]. Signed: 09/11/19 at 0808 by ALEX HOUSE <Co-Signature Required>
[2019-09-11 09:20] VITALS: BP 141/84
--- NOTE | 2019-09-11 09:20 | NUR ---
ER DISCHARGE NOTE: Patient is cleared to be discharged per ERMD, pt is aox4, on room air, with stable vital signs. pt was given dc instructions, pt was able to verbalize understanding, pt id band removed without complications. pt is able to ambulate with steady gait. pt took all belongings. bus tap card was provided to PT
== END 2019-09-11 09:20 | disposition home or self-care (01) ==
LOC: EMR 07:25
DX: M54.5 Low back pain (principal); I10 Essential (primary) hypertension
CPT/HCPCS: 99284

== ENCOUNTER 2019-09-17 05:42 | Emergency (ER) | payer MEDICARE, MEDICAID ==
[~2019-09-17] VITALS: Ht 175.3 cm; Wt 77.1 kg
[2019-09-17 05:54] VITALS: BP 113/69
--- NOTE | 2019-09-17 05:55 | NUR ---
ED Nurse Note: Pt walked in to ED from street c/o lower back pain x1 year ago. Denies fall/ injury. Pt was seen here recently for the same symptoms. Not in any distress.
--- NOTE | 2019-09-17 06:21 | NUR ---
ED Nurse Note: ERMD at bedside.
[2019-09-17 06:55] VITALS: BP 113/69
--- NOTE | 2019-09-17 06:55 | NUR ---
ED Nurse Note: Pt cleared by ERMD for discharge. Pt refused to sign DC papers. All medical deviecs such as ID band removed. Pt is AAO x4, ambulatory and left with all personal belongings.
--- NOTE | 2019-09-17 07:33 | Emergency Room Report ---
History of Present Illness General Chief Complaint: Pain Source: Patient Present Illness HPI Patient presents with complaints of left lower back pain Denies any fall or trauma denies any saddle paresthesia Denies any fevers or chills Denies any vomiting or diarrhea Pain is localized to the left lower back without much other radiation Allergies: Coded Allergies: No Known Allergies (Unverified , 02/07/19) Patient History Past Medical History: see triage record Reviewed Nursing Documentation: PMH: Agreed; PSxH: Agreed Nursing Documentation-PMH Past Medical History: No History, Except For Hx Cardiac Problems: No Hx Hypertension: Yes Hx Asthma: Yes Hx Cancer: No Hx Gastrointestinal Problems: No Hx Neurological Problems: No Review of Systems All Other Systems: negative except mentioned in HPI Physical Exam Vital Signs Date Time Temp Pulse Resp B/P (MAP) Pulse Ox O2 Delivery O2 Flow Rate FiO2 09/17/19 05:51 98.6 110 26 113/69 (84) 98 Room Air Sp02 EP Interpretation: reviewed, normal General Appearance: well appearing, no apparent distress Head: normocephalic, atraumatic Eyes: bilateral eye PERRL, bilateral eye EOMI ENT: hearing grossly normal, EOM grossly intact Neck: supple Respiratory: lungs clear, no respiratory distress, no retraction Gastrointestinal: non tender, soft Musculoskeletal: other - Some tenderness over the left posterior superior iliac crest on palpation no midline discomfort Neurologic: alert, oriented x3 Psychiatric: normal inspection Skin: no rash Lymphatic: no adenopathy Medical Decision Making Diagnostic Impression: Primary Impression: Back pain ER Course On review of medical records patient has been here on several occasions recently On review of CURES, patient shows multiple medication prescribed including opiates and benzodiazepine I did asked the patient regarding this and after questioning he reports that the medication is not helping him He is encouraged to follow closely with his pain management doctor and return with any other concerns Last Vital Signs Date Time Temp Pulse Resp B/P (MAP) Pulse Ox O2 Delivery O2 Flow Rate FiO2 09/17/19 06:55 98.6 103 26 113/69 98 Room Air Status: unchanged Disposition: HOME, SELF-CARE Condition: Stable Referrals: [facility] Patient Instructions: Back Pain, Adult, [id number] Additional Instructions: Please contact your shipyard painter for further discussion. Possible change in management. You have mentioned that the medication prescribed does not help you. It is very important for you to discuss this with your specialist. Patient is provided with the discharge instructions notified to follow up with primary doctor in the next 2-3 days otherwise return to the er with any worsening symptoms. Please note that this report is being documented using [employer] technology. This can lead to erroneous entry secondary to incorrect interpretation by the dictating instrument. Melvin Vegas DO Sep 17, 2019 07:32
== END 2019-09-17 06:55 | disposition home or self-care (01) ==
LOC: EMR 06:15
DX: M54.5 Low back pain (principal); I10 Essential (primary) hypertension
CPT/HCPCS: 99281

== ENCOUNTER 2019-09-22 14:58 | Emergency (ER) | payer MEDICARE, MEDICAID ==
[~2019-09-22] VITALS: Ht 175.3 cm; Wt 79.4 kg
[2019-09-22 15:06] VITALS: BP 166/81
--- NOTE | 2019-09-22 15:10 | NUR ---
ED Nurse Note: patient walked into ED from the street, c/o chronic back pain that he has been having for 10 years. patient also has abrasion on the forehead, reports he fell this morning and hit his head on the concrete floor today this morning. patient is alert awake x4 ambulatory, breathing unlabored and even, speaking in full sentences.
[2019-09-22] MEDS ORDERED: Tetanus/Diptheria/Pertussis IM ONE (15:15)
--- NOTE | 2019-09-22 15:20 | NUR ---
ED Nurse Note: patient taken to CT scan via wheelchair
--- NOTE | 2019-09-22 15:35 | NUR ---
ED Nurse Note: patient came back from CT in stable condition
--- NOTE | 2019-09-22 16:06 | Diagnostic Imaging Report ---
EXAM: CT Head Without Intravenous Contrast CLINICAL HISTORY: TRAUMA TECHNIQUE: Axial computed tomography images of the head/brain without intravenous contrast. CTDI is 53.4 mGy and DLP is 1018.8 mGy-cm. One or more of the following dose reduction techniques were used: automated exposure control, adjustment of the mA and/or kV according to patient size, use of iterative reconstruction technique. COMPARISON: 02/07/2019 FINDINGS: Brain: No acute intracranial hemorrhage, large hypodensity, or significant mass effect. Nonspecific areas of hypoattenuation in the periventricular white matter likely represent the sequela of chronic small vessel ischemic disease. Ventricles: Ventricular and sulcal prominence commensurate with the patient's age. Bones/joints: No acute abnormality. Soft tissues: No significant abnormality. Sinuses: No significant abnormality. Mastoid air cells: No significant abnormality. IMPRESSION: No acute intracranial hemorrhage or calvarial fracture.
--- NOTE | 2019-09-22 16:15 | Emergency Room Report ---
History of Present Illness General Chief Complaint: Back Pain-No Injury Source: Medical Record Present Illness HPI 69-year-old male with history of chronic back pain has been here multiple times here complaining of low back pain as well as a head trauma that happened last night. Patient was that he missed a step and he landed on forehead. Abrasion and contusion noted. Denies any dizziness or loss of consciousness. Denies nausea vomiting. Has not taken medication for symptom relief. Extensive cures history was seen. Denies all other injuries. Denies paresthesia, urinary or bowel incontinence. Allergies: Coded Allergies: No Known Allergies (Unverified , 02/07/19) Patient History Past Medical History: see triage record Past Surgical History: unable to obtain Pertinent Family History: none Immunizations: UTD Reviewed Nursing Documentation: PMH: Agreed; PSxH: Agreed Nursing Documentation-PMH Past Medical History: No History, Except For Hx Cardiac Problems: No Hx Hypertension: Yes Hx Asthma: Yes Hx Cancer: No Hx Gastrointestinal Problems: No Hx Neurological Problems: No Review of Systems All Other Systems: negative except mentioned in HPI Physical Exam Vital Signs Date Time Temp Pulse Resp B/P (MAP) Pulse Ox O2 Delivery O2 Flow Rate FiO2 09/22/19 15:06 98.2 69 18 166/81 99 Room Air Sp02 EP Interpretation: reviewed, normal General Appearance: no apparent distress, alert, GCS 15, non-toxic Head: normocephalic, other - Frontal lobe contusion or abrasion noted Eyes: bilateral eye normal inspection, bilateral eye PERRL ENT: hearing grossly normal, normal pharynx, no angioedema, normal voice Neck: full range of motion, supple/symm/no masses Respiratory: chest non-tender, lungs clear, normal breath sounds, no rhonchi, speaking full sentences Cardiovascular #1: regular rate, rhythm, no edema Cardiovascular #2: 2+ carotid (R), 2+ carotid (L) Gastrointestinal: normal bowel sounds, non tender, soft, non-distended, no guarding, no rebound Genitourinary: no CVA tenderness Musculoskeletal: back normal, no calf tenderness, pelvis stable Neurologic: alert, motor strength/tone normal, oriented x3, sensory intact, responsive, speech normal Psychiatric: judgement/insight normal, memory normal, mood/affect normal, no suicidal/homicidal ideation Skin: abrasion - Forehead Lymphatic: no adenopathy Medical Decision Making PA Attestation All diagnoses and treatment plans were reviewed and discussed with my supervising physician Dr. Alfaro Diagnostic Impression: Primary Impression: Chronic back pain Additional Impressions: Head contusion Abrasion ER Course 69-year-old male with history of chronic back pain has been here multiple times here complaining of low back pain as well as a head trauma that happened last night. Patient was that he missed a step and he landed on forehead. Abrasion and contusion noted. Denies any dizziness or loss of consciousness. Denies nausea vomiting. Has not taken medication for symptom relief. Extensive cures history was seen. Denies all other injuries. Denies paresthesia, urinary or bowel incontinence. Ddx considered but are not limited to: cerebral hematoma, concussion, skull fracture, head contusion Vital signs: are WNL, pt. is afebrile H&PE are most consistent with: Head contusion, facial abrasion, chronic back. ORDERS: head CT no contrast, Motrin ED INTERVENTIONS: Tdap, wound clean and dressed DISCHARGE: At this time pt. is stable for d/c to home. Will provide printed patient care instructions, and any necessary prescriptions. Care plan and follow up instructions have been discussed with the patient prior to discharge. Patient to follow-up primary care provider, pain management, take medication as directed, if worsening symptoms return to the emergency room CT/MRI/US Diagnostic Results CT/MRI/US Diagnostic Results : Imaging Test Ordered: head CT no contrast Impression FINDINGS: Brain: No acute intracranial hemorrhage, large hypodensity, or significant mass effect. Nonspecific areas of hypoattenuation in the periventricular white matter likely represent the sequela of chronic small vessel ischemic disease. Ventricles: Ventricular and sulcal prominence commensurate with the patient's age. Bones/joints: No acute abnormality. Soft tissues: No significant abnormality. Sinuses: No significant abnormality. Mastoid air cells: No significant abnormality. IMPRESSION: No acute intracranial hemorrhage or calvarial fracture. Last Vital Signs Date Time Temp Pulse Resp B/P (MAP) Pulse Ox O2 Delivery O2 Flow Rate FiO2 09/22/19 15:06 98.2 69 18 166/81 (109) 99 Room Air Disposition: HOME, SELF-CARE Condition: Stable Scripts Ibuprofen* (MOTRIN*) 600 Mg Tablet 600 MG ORAL Q6H PRN for For Pain, #30 TAB Prov: Sahelimoghavami,Nahal PA 09/22/19 Patient Instructions: Abrasion, [id number], Back Pain, Adult, Facial or Scalp Contusion, [id number] Additional Instructions: Follow-up with your pain management primary doctor, take medication as directed , if worsening symptoms return to the emergency room Jazmyne Montoya Sep 22, 2019 16:15
[2019-09-22] MEDS ORDERED: IBUPROFEN600 MG ORAL (16:16)
[2019-09-22 16:27] VITALS: BP 166/81
--- NOTE | 2019-09-22 16:27 | NUR ---
Homeless Discharge: Patient is being discharged from medical care. Awake, alert and oriented x3. After care instructions, including referral to community resources were given. Patient verbalized understanding of After care instructions; at this time patient does not request medications, equipment or placement. Patient signed patient consent in the medical record for patient destination upon discharge. All medical devices ID band were removed. Patient ambulated out with all personal belongings with steady gait. sandwiches, juice, water provided. patient declined to state where he is going, bus tap card provided as requested, patient's clothing is adequate for the weather. 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
== END 2019-09-22 16:27 | disposition home or self-care (01) ==
LOC: EMR 15:20
DX: G89.29 Other chronic pain (principal); S00.93XA Contusion of unspecified part of head, initial encounter; W19.XXXA Unspecified fall, initial encounter; Y92.9 Unspecified place or not applicable; I10 Essential (primary) hypertension; Z23 Encounter for immunization
CPT/HCPCS: 70450; 90471; 90715; 99284

== ENCOUNTER 2019-10-09 16:21 | Emergency (ER) | payer MEDICARE, MEDICAID ==
[~2019-10-09] VITALS: Ht 175.3 cm; Wt 79.4 kg
[2019-10-09 16:30] VITALS: BP 134/82
--- NOTE | 2019-10-09 16:33 | NUR ---
ED Nurse Note: Pt walked in from the streets c/o bilateral lower leg swelling and back pain x 2 months. Respirations even and unlabored on room air. Vitals stable as documented.
[2019-10-09] MEDS ORDERED: Acetaminophen 500mg (ES) tab ORAL ONE (17:00)
--- NOTE | 2019-10-09 17:40 | NUR ---
ED Nurse Note: US @ bedside
[2019-10-09] MEDS ORDERED: LIDODERM700 M1 TOPIC (18:15)
[2019-10-09] MEDS ORDERED: TYLENOL EXTRA500 MG ORAL (18:15)
[2019-10-09] MEDS ORDERED: FUROSEMIDE20 M1 ORAL (18:15)
--- NOTE | 2019-10-09 18:23 | Diagnostic Imaging Report ---
Indication: Bilateral leg pain Technique: Grayscale and duplex images of the bilateral lower extremity veins Comparison: None Findings: Bilaterally, grayscale and duplex images demonstrate no evidence of intraluminal thrombus. Normal phasic Doppler waveforms, demonstrating normal augmentation response and no evidence of valvular insufficiency. Greater saphenous vein(s) and tibial veins are patent. Normal compressibility. Prominent lymph nodes with normal architecture seen in the bilateral inguinal regions. There is edema of the subcutaneous fat of the calfs bilaterally Impression: Negative for evidence of lower extremity deep venous thrombosis bilaterally
[2019-10-09 18:25] VITALS: BP 128/85
--- NOTE | 2019-10-09 18:25 | NUR ---
Homeless Discharge: Patient is being discharged from medical care. Awake, alert and oriented x4. After care instructions, including referral to community resources were given. Prescriptions were given and explained to pt. Patient verbalized understanding of After care instructions; at this time patient does not request medications, equipment or placement. Patient signed patient consent in the medical record for patient destination upon discharge. Pt refuses to disclose destination. All medical devices such as ID band were removed. Patient ambulated out with all personal belongings with steady gait.
--- NOTE | 2019-10-09 18:39 | Emergency Room Report ---
History of Present Illness General Chief Complaint: Edema Source: Patient Present Illness HPI 69-year-old male presents to the ED for back pain and leg swelling. States he has history of chronic back pain. Takes [place]. Pain is dull, 7 out of 10, nonradiating. Also complaining of bilateral leg swelling for several months. Denies chest pain or shortness of breath. Denies bowel or bladder incontinence. Denies any leg or motor weakness. No other aggravating relieving factors. Denies any other associated symptoms Allergies: Coded Allergies: No Known Allergies (Unverified , 02/07/19) Patient History Past Medical History: HTN, asthma Past Surgical History: none Pertinent Family History: none Social History: Denies: smoking, alcohol use, drug use Immunizations: UTD Reviewed Nursing Documentation: PMH: Agreed; PSxH: Agreed Nursing Documentation-PMH Past Medical History: No History, Except For Hx Hypertension: Yes Hx Asthma: Yes Hx Cancer: No Hx Gastrointestinal Problems: No Hx Neurological Problems: No Review of Systems All Other Systems: negative except mentioned in HPI Physical Exam Vital Signs Date Time Temp Pulse Resp B/P (MAP) Pulse Ox O2 Delivery O2 Flow Rate FiO2 10/09/19 16:22 97.9 92 16 134/82 (99) 94 Room Air Sp02 EP Interpretation: reviewed, normal General Appearance: no apparent distress, alert, GCS 15, non-toxic Head: normocephalic, atraumatic Eyes: bilateral eye normal inspection, bilateral eye PERRL ENT: hearing grossly normal, normal pharynx, no angioedema, normal voice Neck: full range of motion, supple/symm/no masses Respiratory: chest non-tender, lungs clear, normal breath sounds, speaking full sentences Cardiovascular #1: regular rate, rhythm, no edema Cardiovascular #2: 2+ carotid (R), 2+ carotid (L), 2+ radial (R), 2+ radial (L) , 2+ dorsalis pedis (R), 2+ dorsalis pedis (L) Gastrointestinal: normal bowel sounds, non tender, soft, non-distended, no guarding, no rebound Rectal: deferred Genitourinary: normal inspection, no CVA tenderness Musculoskeletal: back normal, normal range of motion, gait/station normal, tender - parspinal lumbar tenderness, swelling - bilateral calf swelling/ tenderness Neurologic: alert, motor strength/tone normal, oriented x3, sensory intact, responsive, speech normal Psychiatric: judgement/insight normal, memory normal, mood/affect normal, no suicidal/homicidal ideation Reflexes: 3+ bicep (R), 3+ bicep (L), 3+ tricep (R), 3+ tricep (L), 3+ knee (R) , 3+ knee (L) Lymphatic: no adenopathy Medical Decision Making Diagnostic Impression: Primary Impression: Edema Qualified Codes: R60.9 - Edema, unspecified Additional Impression: Back pain Qualified Codes: M54.5 - Low back pain; G89.29 - Other chronic pain ER Course Hospital Course 69-year-old male present ED complaining of bilateral calf pain/swelling. c/o choronic back pain Differential diagnoses include: DVT, cellulitis, contusion, abscess Clinical course Patient placed on stretcher after initial history and physical I ordered pain medication and DVT ultrasound. Doppler ultrasound shows no evidence of DVT Likely peripheral edema. Lungs clear. Vitals stable. No shortness of breath. I discussed findings with patient. Will discharge with Lasix. Requesting [place]. Is currently receiving multiple narcotic prescriptions monthly. I agreed to Tylenol with Lidoderm patch here. Recommend follow-up with his PMD if he wishes to receive any additional [place]. Homeless checklist completed. Safe for discharge close outpatient follow-up. I will provide referrals I. I feel this is a highly complex case requiring extensive working including EKG/Rhythm strip, Xray/CT/US, Blood/urine lab work, repeat exams while in ED, and administration of strong opiates/narcotics for pain control, admission to hospital or close patient follow up. Diagnosis - edema, back pain Stable and discharged to home with Rx Lasix, Tylenol, Lidoderm. Followup with PMD. Return to ED if symptoms recur or worsen CT/MRI/US Diagnostic Results CT/MRI/US Diagnostic Results : Imaging Test Ordered: venous duplex Impression no evidence of DVT bilaterally. edema noted Last Vital Signs Date Time Temp Pulse Resp B/P (MAP) Pulse Ox O2 Delivery O2 Flow Rate FiO2 10/09/19 18:25 98.0 82 16 128/85 95 Room Air Status: improved Disposition: HOME, SELF-CARE Condition: Stable Scripts Lidocaine Patch* (Lidoderm Patch*) 1 Each Adh..patch 1 PATCH TOPIC DAILY, #7 PATCH 0 Refills Patch(es) may remain in place for up to 12 hours in any 24-hour period. Prov: Satya Escobar MD 10/09/19 Furosemide* (LASIX*) 20 Mg Tablet 20 MG ORAL DAILY, #14 TAB Prov: Satya Escobar MD 10/09/19 Acetaminophen* (TYLENOL EXTRA STRENGTH*) 500 Mg Tablet 500 MG ORAL Q8H PRN for Prn Headache/Temp > 101, #30 TAB 0 Refills Prov: Satya Escobar MD 10/09/19 Referrals: [facility] Patient Instructions: Peripheral Edema Satya Escobar MD Oct 09, 2019 18:38
== END 2019-10-09 18:25 | disposition home or self-care (01) ==
LOC: EMR 18:00
DX: M54.5 Low back pain (principal); G89.29 Other chronic pain; R60.9 Edema, unspecified; I10 Essential (primary) hypertension; R22.43 Localized swelling, mass and lump, lower limb, bilateral
CPT/HCPCS: 93970; 99284

== ENCOUNTER 2019-10-21 19:39 | Emergency (ER) | payer MEDICARE, MEDICAID ==
[~2019-10-21] VITALS: Ht 167.6 cm; Wt 79.4 kg
[~2019-10-21 19:39] MED LIST changes: +FUROSEMIDE20 M1 ORAL
[2019-10-21 19:55] VITALS: BP 153/81
--- NOTE | 2019-10-21 19:59 | Emergency Room Report ---
History of Present Illness General Chief Complaint: Edema Present Illness HPI 69-year-old male with history of chronic back pain and bilateral lower extremity edema times several months without any fall or injury and history of extensive drug-seeking behavior here complaining of increased pain in bilateral lower extremities. Patient was seen here at [facility] several times in the month of September and September 2019 for same complaint. Patient was last given a prescription for Tylenol and lidocaine patch which he reports he never took to the pharmacy as he did not believe that that was the correct medication for him. Patient keeps requesting morphine. Extensive cures history noted and last hydrocodone pickup was October 13 2023 days after he was seen at [facility] and he had quantity 100 pills. Patient reports that he does go to his regular doctor however he does not believe that his regular doctor is even been helpful. Drug-seeking behavior is been observed. Edema is noted however appears to be chronic on bilateral lower extremities and no calf tenderness. COVID-19 risk:Contact w/high r: No COVID-19 risk:Travel to [facility]: No Has patient experienced earl: No Allergies: Coded Allergies: No Known Allergies (Unverified , 02/07/19) Patient History Past Medical History: see triage record Past Surgical History: none Pertinent Family History: none Reviewed Nursing Documentation: PMH: Agreed; PSxH: Agreed Nursing Documentation-PMH Hx Hypertension: Yes Hx Asthma: Yes Hx Cancer: No Hx Gastrointestinal Problems: No Hx Neurological Problems: No Review of Systems All Other Systems: negative except mentioned in HPI Physical Exam Vital Signs Date Time Temp Pulse Resp B/P (MAP) Pulse Ox O2 Delivery O2 Flow Rate FiO2 10/21/19 19:45 98.1 82 16 153/81 (105) 97 Room Air Sp02 EP Interpretation: reviewed, normal General Appearance: no apparent distress, alert, GCS 15, non-toxic Head: normocephalic, atraumatic Eyes: bilateral eye normal inspection, bilateral eye PERRL ENT: hearing grossly normal, normal pharynx, no angioedema, normal voice Neck: full range of motion, supple/symm/no masses Respiratory: normal inspection, chest non-tender, lungs clear Gastrointestinal: non tender Genitourinary: no CVA tenderness Musculoskeletal: back normal, no calf tenderness, pelvis stable, swelling - Bilateral lower extremities Neurologic: alert, motor strength/tone normal, oriented x3, sensory intact, responsive, speech normal Psychiatric: judgement/insight normal, memory normal, mood/affect normal, no suicidal/homicidal ideation Skin: no rash Lymphatic: no adenopathy Medical Decision Making PA Attestation All diagnoses and treatment plans were reviewed and discussed with my supervising physician Dr. Alfaro Diagnostic Impression: Primary Impression: Chronic pain Additional Impression: Drug-seeking behavior ER Course 69-year-old male with history of chronic back pain and bilateral lower extremity edema times several months without any fall or injury and history of extensive drug-seeking behavior here complaining of increased pain in bilateral lower extremities. Patient was seen here at [facility] several times in the month of September and September 2019 for same complaint. Patient was last given a prescription for Tylenol and lidocaine patch which he reports he never took to the pharmacy as he did not believe that that was the correct medication for him. Patient keeps requesting morphine. Extensive cures history noted and last hydrocodone pickup was October 13 2023 days after he was seen at [facility] and he had quantity 100 pills. Patient reports that he does go to his regular doctor however he does not believe that his regular doctor is even been helpful. Drug-seeking behavior is been observed. Edema is noted however appears to be chronic on bilateral lower extremities and no calf tenderness. Ddx considered but are not limited to: drug seeking behavior, drug withdrawal, chronic pain Vital signs: are WNL, pt. is afebrile H&PE are most consistent with: Chronic pain, drug-seeking behavior ORDERS: None ED INTERVENTIONS: Tylenol p.o. here DISCHARGE: At this time pt. is stable for d/c to home. Will provide printed patient care instructions, and any necessary prescriptions. Care plan and follow up instructions have been discussed with the patient prior to discharge. Gave patient free clinics that can go to also information on pain management also asked to take the previous prescription for Tylenol and lidocaine patch that was given to him 10 days ago at [facility] to the pharmacy. This is chronic pain, no obvious signs of DVT noted and this pain has been going on for several months. Last Vital Signs Date Time Temp Pulse Resp B/P (MAP) Pulse Ox O2 Delivery O2 Flow Rate FiO2 10/21/19 19:45 98.1 82 16 153/81 (105) 97 Room Air Disposition: HOME, SELF-CARE Condition: Stable Patient Instructions: Edema Additional Instructions: Your pain is chronic and you need to see your primary doctor the fact that you refused to see him or you have seen him and you do not like his course of treatment and you are taking large quantity of [place] and still asking for morphine it is a very obvious drug-seeking behavior. You also have the same prescription for Tylenol and lidocaine patch given to you and your last visit on October 09, 2019 which she decided not to take at the pharmacy as you said yourself that you are not feeling like this is going to help you. This is chronic pain and you are taking large quantity of narcotics and this is considered drug-seeking behavior. You need to see pain management. At this time no more emergency room visits can write for narcotics for you as this is against the law and you need to be under the care of pain management Jazmyne Montoya Oct 21, 2019 19:59
[2019-10-21 20:12] VITALS: BP 153/81
== END 2019-10-21 20:12 | disposition home or self-care (01) ==
LOC: EMR 20:05
DX: G89.29 Other chronic pain (principal); Z76.5 Malingerer [conscious simulation]; R60.0 Localized edema; M79.605 Pain in left leg; M79.604 Pain in right leg; I10 Essential (primary) hypertension
CPT/HCPCS: 99281

== ENCOUNTER 2020-03-20 16:39 | Emergency (ER) | payer MEDICARE, MEDICAID ==
[~2020-03-20] VITALS: Ht 175.3 cm; Wt 77.1 kg
[2020-03-20 16:54] VITALS: BP 118/80
[2020-03-20 17:05] VITALS: BP 128/87
[2020-03-20] MEDS ORDERED: HYDROcodone/Acetamin 5/325 tab ORAL ONE (17:30)
--- NOTE | 2020-03-20 17:43 | Emergency Room Report ---
History of Present Illness General Chief Complaint: General Complaint Source: Patient Present Illness HPI 69-year-old male with history of chronic back pain currently taking Bradley and chronic COPD here complaining of feeling shortness of breath and cough x2 months and worsening chronic back pain x2 months. Patient has pain management and has an active prescription for Bradley. Patient asking for more Bradley and reports that he lost his IV and has not been able to cloth picker his Bradley from the pharmacy for the past 4 months when I informed him that based on CURES patient picked up the last prescription March 14 patient reported that he never did so. Drug-seeking behavior has been observed. Patient wants more Bradley and wants to a higher dose. Patient does not allow me to finish my sentences. No shortness of breath is noted. Denies any fall or injury. When told that he can take 1 tablet of Bradley here and be discharged with ibuprofen he says that ibuprofen never works for him. Allergies: Coded Allergies: No Known Allergies (Unverified , 02/07/19) COVID-19 Screening Contact w/high risk pt: No Recent Travel to affected area: No Experienced COVID-19 symptoms?: Yes COVID-19 Testing performed EXCEPTION[employer] CHILDREN TEACHER: No Patient History Past Medical History: see triage record Past Surgical History: unable to obtain Pertinent Family History: unable to obtain Reviewed Nursing Documentation: PMH: Agreed; PSxH: Agreed Nursing Documentation-PMH Past Medical History: No History, Except For Hx Hypertension: Yes Hx Asthma: Yes Hx Cancer: No Hx Gastrointestinal Problems: No Hx Neurological Problems: No Review of Systems All Other Systems: negative except mentioned in HPI Physical Exam Vital Signs Date Time Temp Pulse Resp B/P (MAP) Pulse Ox O2 Delivery O2 Flow Rate FiO2 03/20/20 16:52 98.8 85 18 126/84 (98) 97 Sp02 EP Interpretation: reviewed, normal General Appearance: normal inspection Head: normocephalic, atraumatic Eyes: bilateral eye normal inspection, bilateral eye PERRL ENT: hearing grossly normal, normal pharynx, no angioedema, normal voice Neck: full range of motion, supple/symm/no masses Respiratory: chest non-tender, lungs clear, normal breath sounds, speaking full sentences Cardiovascular #1: regular rate, rhythm, no edema Cardiovascular #2: 2+ dorsalis pedis (R), 2+ dorsalis pedis (L) Gastrointestinal: normal bowel sounds, non tender, soft, non-distended, no guarding, no rebound Rectal: deferred Genitourinary: no CVA tenderness Musculoskeletal: back normal Neurologic: alert, motor strength/tone normal, oriented x3, sensory intact, responsive, speech normal Psychiatric: judgement/insight normal, memory normal, mood/affect normal, no suicidal/homicidal ideation Skin: no rash Lymphatic: no adenopathy Medical Decision Making PA Attestation All diagnoses and treatment plans were reviewed and discussed with my supervising physician Dr. Mistry Diagnostic Impression: Primary Impression: Chronic pain Additional Impressions: Chronic cough Drug-seeking behavior ER Course 69-year-old male with history of chronic back pain currently taking Bradley and chronic COPD here complaining of feeling shortness of breath and cough x2 months and worsening chronic back pain x2 months. Patient has pain management and has an active prescription for Bradley. Patient asking for more Bradley and reports that he lost his IV and has not been able to cloth picker his Bradley from the pharmacy for the past 4 months when I informed him that based on CURES patient picked up the last prescription March 14 patient reported that he never did so. Drug-seeking behavior has been observed. Patient wants more Bradley and wants to a higher dose. Patient does not allow me to finish my sentences. No shortness of breath is noted. Denies any fall or injury. When told that he can take 1 tablet of Bradley here and be discharged with ibuprofen he says that ibuprofen never works for him. Ddx considered but are not limited to: Lumbar spine sprain, strain, fracture, contusion, neuropathy, chronic back pain Vital signs: are WNL, pt. is afebrile H&PE are most consistent with: Chronic back pain, chronic cough, drug-seeking behavior ORDERS: Chest x-ray, ibuprofen ER intervention: Bradley p.o. DISCHARGE: At this time pt. is stable for d/c to home. Will provide printed patient care instructions, and any necessary prescriptions. Care plan and follow up instructions have been discussed with the patient prior to discharge. At this time no further imaging. Patient for pain management, take medication as directed, if worsening symptoms return to the emergency room Chest X-Ray Diagnostic Results Chest X-Ray Diagnostic Results : Chest X-Ray Ordered: Yes # of Views/Limited/Complete: 1 View Indication: Other - cough EP Interpretation: Yes PA Xray: Interpretation reviewed, by supervising MD, and agrees with findings. Interpretation: no consolidation, no effusion, no pneumothorax, no acute cardiopulmonary disease Impression: No acute disease Electronically Signed by: Jazmyne Del Rio PA-C Last Vital Signs Date Time Temp Pulse Resp B/P (MAP) Pulse Ox O2 Delivery O2 Flow Rate FiO2 03/20/20 16:52 98.8 85 18 126/84 (98) 97 Disposition: HOME, SELF-CARE Condition: Stable Scripts Ibuprofen (Ibu) 800 Mg Tablet 800 MG PO TID, #30 TAB Prov: Jazmyne Montoya 03/20/20 Patient Instructions: Back Pain, Adult, [id number] Additional Instructions: Follow-up with your pain management doctor at this time no more narcotics can be given as he should be receiving appropriate pain management your to have an active prescription from the same doctor. No more narcotics can be given as you are taking them more than advised. Worsening symptom return to emergency room Jazmyne Montoya Mar 20, 2020 17:43
[2020-03-20] MEDS ORDERED: IBU800 MG PO (17:44)
[2020-03-20 17:55] VITALS: BP 114/76
--- NOTE | 2020-03-21 11:19 | Diagnostic Imaging Report ---
Procedure: XRAY Chest 1v Reason for study: Reason For Exam: COUGH Comparison films: 02/07/2019. FINDINGS: A single one view chest is obtained. Vascularity is normal. The lung russell are clear bilaterally. Cardiac and mediastinal silhouette are within normal limits. CP angles are sharp. The bony thorax appear unremarkable. IMPRESSION: NO ACUTE CARDIOPULMONARY DISEASE.
== END 2020-03-20 17:55 | disposition home or self-care (01) ==
LOC: EMR 17:15
DX: G89.29 Other chronic pain (principal); M54.9 Dorsalgia, unspecified; R05 Cough; Z76.5 Malingerer [conscious simulation]; I10 Essential (primary) hypertension; J45.909 Unspecified asthma, uncomplicated; Z79.891 Long term (current) use of opiate analgesic; Z79.1 Long term (current) use of non-steroidal anti-inflammatories (NSAID)
CPT/HCPCS: 71045; 99283

== ENCOUNTER 2020-04-10 20:47 | Inpatient (IN) | payer MEDICARE, MEDICAID ==
[~2020-04-10] VITALS: Ht 175.3 cm; Wt 78.5 kg
[~2020-04-10 20:47] MED LIST changes: +IBU800 MG PO
[2020-04-10 20:55] VITALS: BP 164/86
--- NOTE | 2020-04-10 21:16 | Emergency Room Report ---
History of Present Illness General Chief Complaint: Abdominal Pain Source: Patient Present Illness HPI Patient is a 69-year-old -[place] male with past medical history of chronic back pain for several years currently on pain contract with physician Dr. Rio Choi who presents with generalized weakness and nausea. Patient states that his back pain is the same as it always is but he ran out of his Brocton's. He was prescribed Brocton was on March 14, 2020, but already took all of them. He is also prescribed clonazepam by his chronic pain specialist secondary to anxiety. He states that "I do not feel good". And admits to shortness of breath, nausea , and bilateral lower extremity edema that has been getting worse. Due to the increase swelling in his legs, he reports increased back pain. Pain is located in the left buttock area. Denies rash, fever, chills, urinary retention, urinary/fecal incontinence, saddle anesthesia, difficulty walking, focal weakness, or chest pain The patient's symptoms were gradual onset, severity was moderate, duration since several days. Is a poor historian and cannot elucidate the onset of his symptoms. Quality: nauseous Past medical history: Hypertension, chronic back pain Past surgical history: Denies Smoking: Denies Alcohol use: Positive Drug use: Denies Review of systems: CONST: No fevers or chills, No night sweats PULMONARY: No productive cough, ++ shortness of breath CARDIAC: No chest pain, No palpitations GI: No vomiting, No diarrhea , No melena_or_BRBPR : No dysuria, No hematuria, No discharge NEURO: No new_focal_weakness_or_numbness, No confusion, No vision changes 14 point Review of Systems is otherwise negative except per HPI Physical Exam: GENERAL: Awake_alert_ nontoxic, no acute distress Spo2 95% on RA -normal EYES: Extraocular muscles are intact. Conjunctivae clear. Lids without swelling ENT: External nose and ear normal_in_appearance. Oropharynx clear. Head_ atraumatic, Moist_oral_mucosa NECK: No JVD. No meningismus. No thyromegaly. Supple. Trachea midline RESP: Normal respiratory effort. Symmetric rise. No stridor. Clear_to_ auscultation_No_rales_No_wheezes CARDIAC: Regular rate and regular rhytm. Bilaterally symmetric 4+ pitting edema to the proximal plata bilaterally. Negative Homans sign. ABDOMEN: Soft. Nondistended. Nontender_No_rebound_or_guarding. MSK: Normal muscle tone, without rigidity. Extremities without asymmetric deformity or swelling. SKIN: Warm and dry. No visible cyanosis or pallor NEUROLOGIC: Alert, oriented x3. Motor_and_sensation_grossly_intact. No truncal ataxia. Gait_normal Psych: Normal mood and affect, normal judgment and insight - COORDINATION OF CARE Case was discussed with: Patient , Patient's Physician Any labs and imaging that were ordered were interpreted as part of the medical decision making: Medical Decision Making/Plan: Differential includes CHF, pulmonary edema, pulmonary embolism, pneumonia, pleural effusions, pneumothorax, among others. EKG shows normal sinus rhythm with left ventricular hypertrophy otherwise without any obvious signs of ischemia. CXR shows cardiomegaly. No evidence of pneumonia, but does have findings consistent with vascular congestion from CHF. Troponin and BNP pending. Care to be signed out to Dr Kingston Symptoms are not likely to be due to pulmonary embolism, the patient has no significant PE risk factors and has a more likely alternate cause of their symptoms, given their chest xray findings, lung exam and presentation so workup was deferred and not pursued. The patient appears to be in decompensated CHF in exacerbation and not a suitable candidate for outpatient treatment so will be admitted for inpatient diuresis and further evaluation and treatment. 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: No Nursing Documentation-[facility] Past Medical History: No History, Except For Hx Hypertension: Yes Hx Asthma: Yes Hx Cancer: No Hx Gastrointestinal Problems: No Hx Neurological Problems: No Physical Exam Vital Signs Date Time Temp Pulse Resp B/P (MAP) Pulse Ox O2 Delivery O2 Flow Rate FiO2 04/10/20 20:52 98.2 89 18 171/94 (119) 95 Room Air Sp02 EP Interpretation: reviewed, normal Medical Decision Making Diagnostic Impression: Primary Impression: Generalized weakness Additional Impressions: Nausea Edema Hypertension Chronic back pain Pain management contract agreement Narcotic dependence EKG Diagnostic Results KELLI Scribe Text 12-lead EKG (interpreted by me) Time: 2106 Indication: Rhythm analysis Tracing visualized and Interpreted by me. Rhythm: Normal sinus rhythm Rate: 79 bpm QTc: 467 Morphology: No_significant_ST_elevations_or_depressions, No STEMI Impression: Normal_sinus_rhythm_without_significant_abnormality, left ventricular hypertrophy Last Vital Signs Date Time Temp Pulse Resp B/P (MAP) Pulse Ox O2 Delivery O2 Flow Rate FiO2 04/10/20 20:52 98.2 89 18 171/94 (119) 95 Room Air Disposition: ADMITTED INPATIENT Admit Decision Time: 21:16 Condition: Stable Esther Dorantes D.O. Apr 10, 2020 21:16
[2020-04-10 21:59] LABS: BASOPHILS % (AUTO) 0.6 % (0.0-2.0); EOSINOPHILS % (AUTO) 5.6 % (0.0-3.0); HEMATOCRIT 44.9 % (42.0-52.0); LYMPHOCYTES % (AUTO) 15.5 % (20.0-45.0); MEAN CORPUSCULAR VOLUME 82 FL (80-99); MONOCYTES % (AUTO) 5.6 % (1.0-10.0); NEUTROPHILS % (AUTO) 72.7 % (45.0-75.0); PLATELET COUNT 156 K/UL (150-450); RED BLOOD COUNT 5.49 M/UL (4.70-6.10); RED CELL DISTRIBUTION WIDTH 18.8 % (11.6-14.8); WHITE BLOOD COUNT 6.8 K/UL (4.8-10.8)
[2020-04-10 22:18] LABS: ANION GAP 11 mmol/L (5-15); BLOOD UREA NITROGEN 16 mg/dL (7-18); CALCIUM 8.9 MG/DL (8.5-10.1); CARBON DIOXIDE 25 MMOL/L (21-32); CHLORIDE 103 MMOL/L (98-107); CREATININE 1.3 MG/DL (0.55-1.30); SODIUM 139 MMOL/L (136-145)
[2020-04-10 22:28] LABS: ALANINE AMINOTRANSFERASE 25 U/L (12-78); ALBUMIN 3.6 G/DL (3.4-5.0); ALBUMIN/GLOBULIN RATIO 0.7 (1.0-2.7); ALKALINE PHOSPHATASE 114 U/L (46-116); ASPARTATE AMINO TRANSFERASE 35 U/L (15-37); BILIRUBIN,TOTAL 0.6 MG/DL (0.2-1.0)
[2020-04-10 23:18] LABS: APPEARANCE,URINE CLEAR; BILIRUBIN, URINE NEGATIVE (NEGATIVE); GLUCOSE, URINE (UA) NEGATIVE (NEGATIVE); KETONES,URINE NEGATIVE (NEGATIVE); LEUKOCYTE ESTERASE ,URINE NEGATIVE (NEGATIVE); NITRITE,URINE NEGATIVE (NEGATIVE); PH,URINE 6 (4.5-8.0); PROTEIN,URINE NEGATIVE (NEGATIVE); UROBILINOGEN,URINE NORMAL MG/DL (0.0-1.0)
[2020-04-10 23:24] LABS: COLOR,URINE YELLOW
[2020-04-11] VITALS (8 sets, daily range): BP systolic 139–152; BP diastolic 80–103
[2020-04-11] MEDS ORDERED: Nitroglycerin Subl 0.4mg tab SL PRN (00:15)
[2020-04-11] MEDS ORDERED: Metoclopramide 10mg/2ml Inj IVP PRN (00:15)
[2020-04-11] MEDS ORDERED: Miralax 17gm pkt ORAL PRN (00:15)
[2020-04-11] MEDS: D5 1/2NS 1,000 ML IV SCH ×2 (01:25→12:32)
[2020-04-11] MEDS: Pantoprazole Inj IV SCH (08:49)
[2020-04-11] MEDS: Heparin 5000 units/ml inj SUBQ SCH ×2 (08:50→21:11)
--- NOTE | 2020-04-11 12:49 | Consultation ---
History of Present Illness General Date patient seen: Apr 11, 2020 Chief Complaint: Abdominal Pain Present Illness HPI 69 year old male with hx of homelessness, HTN presented to ER with multiple different complains, including back pain, stomach pain for a few days. Allergies: Coded Allergies: No Known Allergies (Unverified , 02/07/19) Medication History Scheduled Furosemide* (Lasix*), 20 MG ORAL DAILY Ibuprofen (Ibu), 800 MG PO TID Lidocaine Patch* (Lidoderm Patch*), 1 PATCH TOPIC DAILY No Known Medications* (NKM - No Known Medications*), 0 ., (Reported) Scheduled PRN Acetaminophen* (Tylenol Extra Strength*), 500 MG ORAL Q8H PRN for Prn Headache/ Temp > 101 Ibuprofen (Motrin), 600 MG ORAL Q6H PRN for For Pain Patient History Healthcare decision maker Resuscitation status Advanced Directive on File Past Medical/Surgical History Past Medical/Surgical History: (1) Hypertension (2) Neoplasm of skin of forehead Review of Systems Constitutional: Reports: no symptoms All Other Systems: negative except mentioned in HPI Physical Exam General Appearance: WD/WN, no apparent distress Lines, tubes and drains: peripheral, central line HEENT: normocephalic, atraumatic Neck: non-tender, normal alignment Respiratory/Chest: chest wall non-tender, lungs clear Breasts: no masses Cardiovascular/Chest: normal peripheral pulses Abdomen: normal bowel sounds, non tender Genitourinary/Rectal: normal genital exam, heme negative stool Extremities: normal range of motion Skin Exam: normal pigmentation Last 24 Hour Vital Signs Date Time Temp Pulse Resp B/P (MAP) Pulse Ox O2 Delivery O2 Flow Rate FiO2 04/11/20 12:00 98.1 87 22 148/87 (107) 100 04/11/20 09:00 Room Air 04/11/20 08:00 97.5 77 20 139/82 (101) 100 04/11/20 08:00 78 04/11/20 04:00 98.5 88 20 152/80 (104) 98 04/11/20 04:00 87 04/11/20 01:49 Room Air 04/11/20 00:44 94 04/11/20 00:44 97.8 86 20 151/85 (107) 95 04/11/20 00:35 98.1 84 18 150/94 99 Room Air 99 04/11/20 00:29 98.1 84 18 150/94 99 Room Air 99 04/10/20 20:55 87 18 Room Air 99 04/10/20 20:55 98.2 87 18 164/86 99 Room Air 04/10/20 20:52 98.2 89 18 171/94 (119) 95 Room Air Intake and Output 04/10/20 04/11/20 19:00 07:00 Output Total 700 ml Balance -700 ml Output Urine Total 700 ml # Voids 1 # Bowel Movements 1 Laboratory Tests Test 04/10/20 21:30 04/10/20 21:50 Urine Color Yellow Urine Appearance Clear Urine pH 6 (4.5-8.0) Urine Specific [place] 1.015 (1.005-1.035) Urine Protein Negative (NEGATIVE) Urine Glucose (UA) Negative (NEGATIVE) Urine Ketones Negative (NEGATIVE) Urine Blood Negative (NEGATIVE) Urine Nitrite Negative (NEGATIVE) Urine Bilirubin Negative (NEGATIVE) Urine Urobilinogen Normal MG/DL (0.0-1.0) Urine Leukocyte Esterase Negative (NEGATIVE) Urine Opiates Screen Negative (NEGATIVE) Urine Barbiturates Screen Negative (NEGATIVE) Phencyclidine (PCP) Screen Negative (NEGATIVE) Urine Amphetamines Screen Negative (NEGATIVE) Urine Benzodiazepines Screen Negative (NEGATIVE) Urine Cocaine Screen Negative (NEGATIVE) Urine Marijuana (THC) Screen Negative (NEGATIVE) White Blood Count 6.8 K/UL (4.8-10.8) Red Blood Count 5.49 M/UL (4.70-6.10) Hemoglobin 14.0 G/DL (14.2-18.0) L Hematocrit 44.9 % (42.0-52.0) Mean Corpuscular Volume 82 FL (80-99) Mean Corpuscular Hemoglobin 25.4 PG (27.0-31.0) L Mean Corpuscular Hemoglobin Concent 31.1 G/DL (32.0-36.0) L Red Cell Distribution Width 18.8 % (11.6-14.8) H Platelet Count 156 K/UL (150-450) Mean Platelet Volume 6.7 FL (6.5-10.1) Neutrophils (%) (Auto) 72.7 % (45.0-75.0) Lymphocytes (%) (Auto) 15.5 % (20.0-45.0) L Monocytes (%) (Auto) 5.6 % (1.0-10.0) Eosinophils (%) (Auto) 5.6 % (0.0-3.0) H Basophils (%) (Auto) 0.6 % (0.0-2.0) Sodium Level 139 MMOL/L (136-145) Potassium Level 4.0 MMOL/L (3.5-5.1) Chloride Level 103 MMOL/L (98-107) Carbon Dioxide Level 25 MMOL/L (21-32) Anion Gap 11 mmol/L (5-15) Blood Urea Nitrogen 16 mg/dL (7-18) Creatinine 1.3 MG/DL (0.55-1.30) Estimat Glomerular Filtration Rate > 60 mL/min (>60) Glucose Level 90 MG/DL (74-106) Calcium Level 8.9 MG/DL (8.5-10.1) Total Bilirubin 0.6 MG/DL (0.2-1.0) Aspartate Amino Transf (AST/SGOT) 35 U/L (15-37) Alanine Aminotransferase (ALT/SGPT) 25 U/L (12-78) Alkaline Phosphatase 114 U/L (46-116) Troponin I 0.000 ng/mL (0.000-0.056) Pro-B-Type Natriuretic Peptide 169 pg/mL (0-125) H Total Protein 8.6 G/DL (6.4-8.2) H Albumin 3.6 G/DL (3.4-5.0) Globulin 5.0 g/dL Albumin/Globulin Ratio 0.7 (1.0-2.7) L Lipase 256 U/L (73-393) Microbiology Date/Time Source Procedure Growth Status 04/10/20 21:10 Nasopharynx SARS-CoV-2 RdRp Gene Assay - Final Complete 04/10/20 23:00 Rectum Received Height (Feet): 5 Height (Inches): 9.00 Weight (Pounds): 170 Medications Current Medications Medications (Trade) Dose Ordered Sig/Tyrell Route PRN Reason Start Time Stop Time Status Last Admin Dose Admin Acetaminophen (Tylenol) 650 mg Q4H PRN ORAL fever 04/11/20 00:15 05/11/20 00:14 Dextrose (Dextrose 50%) 25 ml Q30M PRN IV Hypoglycemia 04/11/20 00:15 07/10/20 00:14 Dextrose (Dextrose 50%) 50 ml Q30M PRN IV Hypoglycemia 04/11/20 00:15 07/10/20 00:14 Dextrose/Sodium Chloride 1,000 ml @ 75 mls/hr [id number] IV 04/11/20 00:14 05/11/20 00:13 04/11/20 12:32 Diphenhydramine HCl (Benadryl) 25 mg Q6H PRN ORAL Itching/Pruritis 04/11/20 00:15 05/11/20 00:14 Heparin Sodium (Porcine) (Heparin 5000 units/ml) 5,000 units EVERY 12 HOURS SUBQ 04/11/20 09:00 05/26/20 08:59 Metoclopramide HCl (Reglan) 10 mg Q6H PRN IVP servere nauasea 04/11/20 00:15 05/11/20 00:14 Nitroglycerin (Ntg) 0.4 mg Q5M X 3 DOSES PRN SL Prn Chest Pain 04/11/20 00:15 05/11/20 00:14 Ondansetron HCl (Zofran) 4 mg Q6H PRN IVP Nausea & Vomiting 04/11/20 00:15 05/11/20 00:14 04/11/20 05:43 Pantoprazole (Protonix) 40 mg DAILY IV 04/11/20 09:00 05/11/20 08:59 04/11/20 08:49 Polyethylene Glycol (Miralax) 17 gm HSPRN PRN ORAL Constipation 04/11/20 00:15 05/11/20 00:14 Temazepam (Restoril) 15 mg HSPRN PRN ORAL Insomnia 04/11/20 00:15 04/18/20 00:14 Assessment/Plan Problem List: (1) CHF (congestive heart failure) ICD Codes: I50.9 - Heart failure, unspecified SNOMED: 93646389 (2) Anemia ICD Codes: D64.9 - Anemia, unspecified SNOMED: 654413484 (3) Generalized weakness ICD Codes: R53.1 - Weakness SNOMED: 34997514, 156371004 (4) Hypertension ICD Codes: I10 - Essential (primary) hypertension SNOMED: 94801824 (5) Chronic back pain ICD Codes: M54.9 - Dorsalgia, unspecified; G89.29 - Other chronic pain SNOMED: 867598034, 73042688 (6) ETOH abuse ICD Codes: F10.10 - Alcohol abuse, uncomplicated SNOMED: 52455032 (7) Homelessness ICD Codes: Z59.0 - Homelessness SNOMED: 78154533 Assessment/Plan: 2d echo symptomatic treatment GI evaluation symptomatic treatment check BNP and CXR venous doppler of legs social service consult Argelia Brooks MD Apr 11, 2020 12:49
--- NOTE | 2020-04-11 15:05 | Diagnostic Imaging Report ---
Indication: Abdominal pain Technique: Tay-scale and duplex images of the upper abdomen were obtained Comparison: none Findings: Exam is limited due to excess bowel gas Gallbladder demonstrates multiple gallstones. No gallbladder wall thickening nor pericholecystic fluid. Sonographic Nelson's sign is negative. Common bile duct measures 4 mm in diameter. No intrahepatic biliary ductal dilatation. Liver demonstrates normal echogenicity, no focal abnormality. Portal vein and hepatic veins are patent. Pancreas is obscured by bowel gas. Spleen is unremarkable. Left kidney measures 9.8 cm in length. Right kidney measures 9.4 cm length. Both kidneys demonstrate normal echogenicity. There is no hydronephrosis. No focal abnormality . Abdominal aorta is obscured by bowel gas . Impression: Cholelithiasis. Negative for dilated ducts No other acute or significant abnormality. Note, however, inability to visualize the abdominal aorta and pancreas
--- NOTE | 2020-04-11 16:37 | Diagnostic Imaging Report ---
Indication: Shortness of breath Technique: One view of the chest Comparison: 03/20/2020 Findings: Heart is upper limits normal in size. Lungs pleural spaces are clear. No significant interim change Impression: No acute process
--- NOTE | 2020-04-11 20:54 | History & Physical ---
History and Physical History & Physicial Yuriy Kendrick MD Apr 11, 2020 20:54
[2020-04-11] MEDS ORDERED: KLONOPIN0.5 MG ORAL (22:21)
[2020-04-11] MEDS ORDERED: SYMBICORT 16010.2 G1 IH (22:21)
[2020-04-12] VITALS: BP 154/92
[2020-04-12 04:00] VITALS: BP 139/90
[2020-04-12 07:47] LABS: BASOPHILS % (AUTO) 0.7 % (0.0-2.0); EOSINOPHILS % (AUTO) 6.9 % (0.0-3.0); HEMATOCRIT 40.9 % (42.0-52.0); HEMOGLOBIN 12.9 G/DL (14.2-18.0); LYMPHOCYTES % (AUTO) 30.2 % (20.0-45.0); MEAN CORPUSCULAR VOLUME 80 FL (80-99); MONOCYTES % (AUTO) 8.9 % (1.0-10.0); NEUTROPHILS % (AUTO) 53.3 % (45.0-75.0); PLATELET COUNT 132 K/UL (150-450); RED BLOOD COUNT 5.13 M/UL (4.70-6.10); RED CELL DISTRIBUTION WIDTH 17.6 % (11.6-14.8); WHITE BLOOD COUNT 4.9 K/UL (4.8-10.8)
[2020-04-12 08:00] VITALS: BP 128/77
[2020-04-12 08:06] LABS: PHOSPHORUS 3.2 MG/DL (2.5-4.9)
[2020-04-12] MEDS: Heparin 5000 units/ml inj SUBQ SCH ×2 (08:22→20:20)
[2020-04-12] MEDS: Pantoprazole Inj IV SCH (08:22)
[2020-04-12 08:32] LABS: ALANINE AMINOTRANSFERASE 23 U/L (12-78); ALBUMIN 2.9 G/DL (3.4-5.0); ALBUMIN/GLOBULIN RATIO 0.6 (1.0-2.7); ALKALINE PHOSPHATASE 102 U/L (46-116); AMYLASE 42 U/L (25-115); ANION GAP 6 mmol/L (5-15); ASPARTATE AMINO TRANSFERASE 26 U/L (15-37); BILIRUBIN,TOTAL 0.6 MG/DL (0.2-1.0); BLOOD UREA NITROGEN 5 mg/dL (7-18); CALCIUM 8.6 MG/DL (8.5-10.1); CARBON DIOXIDE 30 MMOL/L (21-32); CHLORIDE 104 MMOL/L (98-107); POTASSIUM 3.7 MMOL/L (3.5-5.1); SODIUM 140 MMOL/L (136-145)
--- NOTE | 2020-04-12 08:46 | Pulmonology Progress Note ---
Subjective ROS Limited/Unobtainable: No Constitutional: Reports: no symptoms HEENT: Repors: no symptoms Allergies: Coded Allergies: No Known Allergies (Unverified , 02/07/19) Objective Last 24 Hour Vital Signs Date Time Temp Pulse Resp B/P (MAP) Pulse Ox O2 Delivery O2 Flow Rate FiO2 04/12/20 04:00 77 04/12/20 04:00 98.6 80 20 139/90 (106) 98 04/12/20 00:00 74 04/12/20 00:00 98.1 80 20 154/92 (112) 95 04/11/20 23:50 98.1 04/11/20 23:30 100.8 04/11/20 21:00 Room Air 04/11/20 20:00 100.4 77 20 147/85 (105) 96 04/11/20 20:00 73 04/11/20 16:00 78 04/11/20 16:00 98.1 78 22 150/103 (119) 99 04/11/20 12:00 98.1 87 22 148/87 (107) 100 04/11/20 12:00 80 04/11/20 09:00 Room Air Intake and Output 04/11/20 04/12/20 19:00 07:00 Intake Total 250 ml Output Total 2000 ml 2600 ml Balance -2000 ml -2350 ml Intake Oral 250 ml Output Urine Total 2000 ml 2600 ml # Bowel Movements 1 1 General Appearance: WD/WN HEENT: normocephalic Respiratory: chest wall non-tender, normal breath sounds Cardiovascular: normal peripheral pulses, normal rate Abdomen: soft, non tender, non distended, no mass Genitourinary: normal external genitalia Extremities: no cyanosis Skin: no ulcers Microbiology Date/Time Source Procedure Growth Status 04/10/20 21:10 Nasopharynx SARS-CoV-2 RdRp Gene Assay - Final Complete 04/10/20 23:00 Rectum Received Laboratory Tests 04/12/20 06:20: White Blood Count 4.9, Red Blood Count 5.13, Hemoglobin 12.9L, Hematocrit 40.9L , Mean Corpuscular Volume 80, Mean Corpuscular Hemoglobin 25.1L, Mean Corpuscular Hemoglobin Concent 31.5L, Red Cell Distribution Width 17.6H, Platelet Count 132L, Mean Platelet Volume 6.8, Neutrophils (%) (Auto) 53.3, Lymphocytes (%) (Auto) 30.2, Monocytes (%) (Auto) 8.9, Eosinophils (%) (Auto) 6.9H, Basophils (%) (Auto) 0.7, Activated Partial Thromboplast Time 34H, Sodium Level 140, Potassium Level 3.7, Chloride Level 104, Carbon Dioxide Level 30, Anion Gap 6, Blood Urea Nitrogen 5L, Creatinine 1.0, Estimat Glomerular Filtration Rate > 60, Glucose Level 98, Calcium Level 8.6, Phosphorus Level 3.2 , Magnesium Level 1.8, Total Bilirubin 0.6, Aspartate Amino Transf (AST/SGOT) 26 , Alanine Aminotransferase (ALT/SGPT) 23, Alkaline Phosphatase 102, Total Protein 7.4, Albumin 2.9L, Globulin 4.5, Albumin/Globulin Ratio 0.6L, Amylase Level 42, Lipase 80 Current Medications Medications (Trade) Dose Ordered Sig/Tyrell Route PRN Reason Start Time Stop Time Status Last Admin Dose Admin Acetaminophen (Tylenol) 650 mg Q4H PRN ORAL fever 04/11/20 00:15 05/11/20 00:14 04/11/20 23:20 Budesonide/ Formoterol Fumarate (Symbicort 160/ 4.5) 1 puff TWICE A DAY INH 04/11/20 18:00 07/10/20 17:59 04/12/20 08:22 Dextrose (Dextrose 50%) 25 ml Q30M PRN IV Hypoglycemia 04/11/20 00:15 07/10/20 00:14 Dextrose (Dextrose 50%) 50 ml Q30M PRN IV Hypoglycemia 04/11/20 00:15 07/10/20 00:14 Diphenhydramine HCl (Benadryl) 25 mg Q6H PRN ORAL Itching/Pruritis 04/11/20 00:15 05/11/20 00:14 Furosemide (Lasix) 20 mg DAILY ORAL 04/12/20 09:00 05/12/20 08:59 04/12/20 08:22 Heparin Sodium (Porcine) (Heparin 5000 units/ml) 5,000 units EVERY 12 HOURS SUBQ 04/11/20 09:00 05/26/20 08:59 04/11/20 21:11 Metoclopramide HCl (Reglan) 10 mg Q6H PRN IVP danny pnocesea 04/11/20 00:15 05/11/20 00:14 Nitroglycerin (Ntg) 0.4 mg Q5M X 3 DOSES PRN SL Prn Chest Pain 04/11/20 00:15 05/11/20 00:14 Ondansetron HCl (Zofran) 4 mg Q6H PRN IVP Nausea & Vomiting 04/11/20 00:15 05/11/20 00:14 04/11/20 05:43 Pantoprazole (Protonix) 40 mg DAILY IV 04/11/20 09:00 05/11/20 08:59 04/12/20 08:22 Polyethylene Glycol (Miralax) 17 gm HSPRN PRN ORAL Constipation 04/11/20 00:15 05/11/20 00:14 Temazepam (Restoril) 15 mg HSPRN PRN ORAL Insomnia 04/11/20 00:15 04/18/20 00:14 Assessment/Plan Problems: (1) Intractable abdominal pain (2) CHF (congestive heart failure) (3) Generalized weakness (4) Hypertension (5) Chronic back pain (6) ETOH abuse (7) Homelessness Assessment/Plan symptomatic treatment had low grade fever peterson cultures and ID evaluation\ check echocardiogram meds reviewed dvt prophylaxis Argelia Brooks MD Apr 12, 2020 08:46
[2020-04-12 12:00] VITALS: BP 127/87
--- NOTE | 2020-04-12 13:52 | Internal Med Progress Note ---
Subjective Date of Service: Apr 12, 2020 Physician Name Fisher,Nikos Attending Physician Yuriy Kendrick MD Current Medications Medications (Trade) Dose Ordered Sig/Tyrell Route PRN Reason Start Time Stop Time Status Last Admin Dose Admin Acetaminophen (Tylenol) 650 mg Q4H PRN ORAL fever 04/11/20 00:15 05/11/20 00:14 04/11/20 23:20 Budesonide/ Formoterol Fumarate (Symbicort 160/ 4.5) 1 puff TWICE A DAY INH 04/11/20 18:00 07/10/20 17:59 04/12/20 08:22 Dextrose (Dextrose 50%) 25 ml Q30M PRN IV Hypoglycemia 04/11/20 00:15 07/10/20 00:14 Dextrose (Dextrose 50%) 50 ml Q30M PRN IV Hypoglycemia 04/11/20 00:15 07/10/20 00:14 Diphenhydramine HCl (Benadryl) 25 mg Q6H PRN ORAL Itching/Pruritis 04/11/20 00:15 05/11/20 00:14 Furosemide (Lasix) 20 mg DAILY ORAL 04/12/20 09:00 05/12/20 08:59 04/12/20 08:22 Heparin Sodium (Porcine) (Heparin 5000 units/ml) 5,000 units EVERY 12 HOURS SUBQ 04/11/20 09:00 05/26/20 08:59 04/11/20 21:11 Metoclopramide HCl (Reglan) 10 mg Q6H PRN IVP servere nauasea 04/11/20 00:15 05/11/20 00:14 Nitroglycerin (Ntg) 0.4 mg Q5M X 3 DOSES PRN SL Prn Chest Pain 04/11/20 00:15 05/11/20 00:14 Ondansetron HCl (Zofran) 4 mg Q6H PRN IVP Nausea & Vomiting 04/11/20 00:15 05/11/20 00:14 04/11/20 05:43 Pantoprazole (Protonix) 40 mg DAILY IV 04/11/20 09:00 05/11/20 08:59 04/12/20 08:22 Polyethylene Glycol (Miralax) 17 gm HSPRN PRN ORAL Constipation 04/11/20 00:15 05/11/20 00:14 Temazepam (Restoril) 15 mg HSPRN PRN ORAL Insomnia 04/11/20 00:15 04/18/20 00:14 Allergies: Coded Allergies: No Known Allergies (Unverified , 02/07/19) ROS Limited/Unobtainable: No Constitutional: Reports: weakness HEENT: Reports: no symptoms Cardiovascular: Reports: no symptoms Respiratory: Reports: no symptoms Gastrointestinal/Abdominal: Reports: diarrhea Genitourinary: Reports: no symptoms Neurologic/Psychiatric: Reports: no symptoms Subjective 69 YO M with history of chronic lumbar pain and opiate dependence. Now admitted for generalized weakness and diarrhea. Cover for Int Med-Dr Kendrick Objective Last Vital Signs Date Time Temp Pulse Resp B/P (MAP) Pulse Ox O2 Delivery O2 Flow Rate FiO2 04/12/20 09:00 Room Air 04/12/20 08:00 87 04/12/20 08:00 97.9 20 128/77 (94) 100 04/11/20 00:35 99 General Appearance: WD/WN, no apparent distress, alert EENT: PERRL/EOMI, normal ENT inspection Neck: non-tender, normal alignment, supple, normal inspection Cardiovascular: normal peripheral pulses, normal rate, regular rhythm, no gallop/murmur, no JVD Respiratory/Chest: chest wall non-tender, lungs clear, normal breath sounds, no respiratory distress, no accessory muscle use Abdomen: normal bowel sounds, non tender, soft, no organomegaly, no mass Extremities: normal range of motion, non-tender 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 normal, no motor/sensory deficits Skin: normal pigmentation, warm/dry Laboratory Tests Test 04/12/20 06:20 White Blood Count 4.9 K/UL (4.8-10.8) Red Blood Count 5.13 M/UL (4.70-6.10) Hemoglobin 12.9 G/DL (14.2-18.0) L Hematocrit 40.9 % (42.0-52.0) L Mean Corpuscular Volume 80 FL (80-99) Mean Corpuscular Hemoglobin 25.1 PG (27.0-31.0) L Mean Corpuscular Hemoglobin Concent 31.5 G/DL (32.0-36.0) L Red Cell Distribution Width 17.6 % (11.6-14.8) H Platelet Count 132 K/UL (150-450) L Mean Platelet Volume 6.8 FL (6.5-10.1) Neutrophils (%) (Auto) 53.3 % (45.0-75.0) Lymphocytes (%) (Auto) 30.2 % (20.0-45.0) Monocytes (%) (Auto) 8.9 % (1.0-10.0) Eosinophils (%) (Auto) 6.9 % (0.0-3.0) H Basophils (%) (Auto) 0.7 % (0.0-2.0) Activated Partial Thromboplast Time 34 SEC (23-33) H Sodium Level 140 MMOL/L (136-145) Potassium Level 3.7 MMOL/L (3.5-5.1) Chloride Level 104 MMOL/L (98-107) Carbon Dioxide Level 30 MMOL/L (21-32) Anion Gap 6 mmol/L (5-15) Blood Urea Nitrogen 5 mg/dL (7-18) L Creatinine 1.0 MG/DL (0.55-1.30) Estimat Glomerular Filtration Rate > 60 mL/min (>60) Glucose Level 98 MG/DL (74-106) Calcium Level 8.6 MG/DL (8.5-10.1) Phosphorus Level 3.2 MG/DL (2.5-4.9) Magnesium Level 1.8 MG/DL (1.8-2.4) Total Bilirubin 0.6 MG/DL (0.2-1.0) Aspartate Amino Transf (AST/SGOT) 26 U/L (15-37) Alanine Aminotransferase (ALT/SGPT) 23 U/L (12-78) Alkaline Phosphatase 102 U/L (46-116) Total Protein 7.4 G/DL (6.4-8.2) Albumin 2.9 G/DL (3.4-5.0) L Globulin 4.5 g/dL Albumin/Globulin Ratio 0.6 (1.0-2.7) L Amylase Level 42 U/L (25-115) Lipase 80 U/L (73-393) Microbiology Date/Time Source Procedure Growth Status 04/10/20 21:10 Nasopharynx SARS-CoV-2 RdRp Gene Assay - Final Complete 04/10/20 23:00 Rectum Received Intake and Output 04/11/20 04/12/20 19:00 07:00 Intake Total 250 ml Output Total 2000 ml 2600 ml Balance -2000 ml -2350 ml Intake Oral 250 ml Output Urine Total 2000 ml 2600 ml # Bowel Movements 1 1 Assessment/Plan Problem List: (1) HTN (hypertension) (2) Opiate dependence, continuous (3) Benzodiazepine dependence, continuous (4) CHF (congestive heart failure) Assessment & Plan: Continue lasix (5) Generalized weakness (6) Chronic back pain (7) Diarrhea Assessment & Plan: ?opiate withdrawal? Status: not improved Nikos Fisher MD Apr 12, 2020 13:52
[2020-04-12 16:00] VITALS: BP 134/98
--- NOTE | 2020-04-12 16:03 | Consultation ---
History of Present Illness General Date patient seen: Apr 12, 2020 Chief Complaint: Abdominal Pain Present Illness HPI 69 y/o M with hx of HTN, Asthma, chronic back pain, anxiety disorder, homelessness presented to ED on 04/10/20 with back and stomach pain, generalized weakness, nausea, SOB, b/l LE swelling Denied f/c, rash, urinary retention, focal weakness, CP Allergies: Coded Allergies: No Known Allergies (Unverified , 02/07/19) Medication History Scheduled Clonazepam* (Klonopin*), 0.5 MG ORAL BID, (Reported) Ibuprofen (Ibu), 800 MG PO TID Miscellaneous Medications Budesonide/Formoterol Fumarate (Symbicort 160-4.5 Mcg Inhaler), Unknown Dose IH, (Reported) Discontinued Medications Acetaminophen* (Tylenol Extra Strength*), 500 MG ORAL Q8H PRN for Prn Headache/ Temp > 101 Discontinued Reason: Therapy completed Furosemide* (Lasix*), 20 MG ORAL DAILY Discontinued Reason: Therapy completed Ibuprofen (Motrin), 600 MG ORAL Q6H PRN for For Pain Discontinued Reason: Therapy completed Lidocaine Patch* (Lidoderm Patch*), 1 PATCH TOPIC DAILY Discontinued Reason: Therapy completed Patient History Healthcare decision maker Resuscitation status Advanced Directive on File Patient History Narrative Pmhx: as above Shx: Smoking: Denies Alcohol use: Positive Drug use: Denies Fhmx: non contributory Review of Systems All Other Systems: negative except mentioned in HPI Physical Exam Physical Exam Narrative General Appearance: WD/WN, no apparent distress, alert EENT: PERRL/EOMI, normal ENT inspection Neck: non-tender, normal alignment, supple, normal inspection Cardiovascular: normal peripheral pulses, normal rate, regular rhythm, no gallop/murmur, no JVD Respiratory/Chest: chest wall non-tender, lungs clear, normal breath sounds, no respiratory distress, no accessory muscle use Abdomen: normal bowel sounds, non tender, soft, no organomegaly, no mass Extremities: normal range of motion, non-tender Last 24 Hour Vital Signs Date Time Temp Pulse Resp B/P (MAP) Pulse Ox O2 Delivery O2 Flow Rate FiO2 04/12/20 12:00 72 04/12/20 12:00 97.6 80 20 127/87 (100) 96 04/12/20 09:00 Room Air 04/12/20 08:00 87 04/12/20 08:00 97.9 85 20 128/77 (94) 100 04/12/20 04:00 77 04/12/20 04:00 98.6 80 20 139/90 (106) 98 04/12/20 00:00 74 04/12/20 00:00 98.1 80 20 154/92 (112) 95 04/11/20 23:50 98.1 04/11/20 23:30 100.8 04/11/20 21:00 Room Air 04/11/20 20:00 100.4 77 20 147/85 (105) 96 04/11/20 20:00 73 04/11/20 16:00 78 04/11/20 16:00 98.1 78 22 150/103 (119) 99 Intake and Output 04/11/20 04/12/20 19:00 07:00 Intake Total 250 ml Output Total 2000 ml 2600 ml Balance -2000 ml -2350 ml Intake Oral 250 ml Output Urine Total 2000 ml 2600 ml # Bowel Movements 1 1 Laboratory Tests Test 04/12/20 06:20 White Blood Count 4.9 K/UL (4.8-10.8) Red Blood Count 5.13 M/UL (4.70-6.10) Hemoglobin 12.9 G/DL (14.2-18.0) L Hematocrit 40.9 % (42.0-52.0) L Mean Corpuscular Volume 80 FL (80-99) Mean Corpuscular Hemoglobin 25.1 PG (27.0-31.0) L Mean Corpuscular Hemoglobin Concent 31.5 G/DL (32.0-36.0) L Red Cell Distribution Width 17.6 % (11.6-14.8) H Platelet Count 132 K/UL (150-450) L Mean Platelet Volume 6.8 FL (6.5-10.1) Neutrophils (%) (Auto) 53.3 % (45.0-75.0) Lymphocytes (%) (Auto) 30.2 % (20.0-45.0) Monocytes (%) (Auto) 8.9 % (1.0-10.0) Eosinophils (%) (Auto) 6.9 % (0.0-3.0) H Basophils (%) (Auto) 0.7 % (0.0-2.0) Activated Partial Thromboplast Time 34 SEC (23-33) H Sodium Level 140 MMOL/L (136-145) Potassium Level 3.7 MMOL/L (3.5-5.1) Chloride Level 104 MMOL/L (98-107) Carbon Dioxide Level 30 MMOL/L (21-32) Anion Gap 6 mmol/L (5-15) Blood Urea Nitrogen 5 mg/dL (7-18) L Creatinine 1.0 MG/DL (0.55-1.30) Estimat Glomerular Filtration Rate > 60 mL/min (>60) Glucose Level 98 MG/DL (74-106) Calcium Level 8.6 MG/DL (8.5-10.1) Phosphorus Level 3.2 MG/DL (2.5-4.9) Magnesium Level 1.8 MG/DL (1.8-2.4) Total Bilirubin 0.6 MG/DL (0.2-1.0) Aspartate Amino Transf (AST/SGOT) 26 U/L (15-37) Alanine Aminotransferase (ALT/SGPT) 23 U/L (12-78) Alkaline Phosphatase 102 U/L (46-116) Total Protein 7.4 G/DL (6.4-8.2) Albumin 2.9 G/DL (3.4-5.0) L Globulin 4.5 g/dL Albumin/Globulin Ratio 0.6 (1.0-2.7) L Amylase Level 42 U/L (25-115) Lipase 80 U/L (73-393) Height (Feet): 5 Height (Inches): 9.00 Weight (Pounds): 170 Medications Current Medications Medications (Trade) Dose Ordered Sig/Tyrell Route PRN Reason Start Time Stop Time Status Last Admin Dose Admin Acetaminophen (Tylenol) 650 mg Q4H PRN ORAL fever 04/11/20 00:15 05/11/20 00:14 04/11/20 23:20 Budesonide/ Formoterol Fumarate (Symbicort 160/ 4.5) 1 puff TWICE A DAY INH 04/11/20 18:00 07/10/20 17:59 04/12/20 08:22 Dextrose (Dextrose 50%) 25 ml Q30M PRN IV Hypoglycemia 04/11/20 00:15 07/10/20 00:14 Dextrose (Dextrose 50%) 50 ml Q30M PRN IV Hypoglycemia 04/11/20 00:15 07/10/20 00:14 Diphenhydramine HCl (Benadryl) 25 mg Q6H PRN ORAL Itching/Pruritis 04/11/20 00:15 05/11/20 00:14 Furosemide (Lasix) 20 mg DAILY ORAL 04/12/20 09:00 05/12/20 08:59 04/12/20 08:22 Heparin Sodium (Porcine) (Heparin 5000 units/ml) 5,000 units EVERY 12 HOURS SUBQ 04/11/20 09:00 05/26/20 08:59 04/11/20 21:11 Metoclopramide HCl (Reglan) 10 mg Q6H PRN IVP servere nauasea 04/11/20 00:15 05/11/20 00:14 Nitroglycerin (Ntg) 0.4 mg Q5M X 3 DOSES PRN SL Prn Chest Pain 04/11/20 00:15 05/11/20 00:14 Ondansetron HCl (Zofran) 4 mg Q6H PRN IVP Nausea & Vomiting 04/11/20 00:15 05/11/20 00:14 04/11/20 05:43 Pantoprazole (Protonix) 40 mg DAILY IV 04/11/20 09:00 05/11/20 08:59 04/12/20 08:22 Polyethylene Glycol (Miralax) 17 gm HSPRN PRN ORAL Constipation 04/11/20 00:15 05/11/20 00:14 Temazepam (Restoril) 15 mg HSPRN PRN ORAL Insomnia 04/11/20 00:15 04/18/20 00:14 Assessment/Plan Assessment/Plan: Abx: None Assessment: COVID19 neg x1 (04/10 rapid COVID PCR neg) Nausea, generalized weakness- ?opioid withdrawal -Abd US: Cholelithiasis. Negative for dilated ducts. No other acute or significant abnormality. Note, however, inability to visualize the abdominal aorta and pancreas Low grade fever- r/o bacteremia No leukocytosis -u/a neg UDS neg HTN Asthma chronic back pain anxiety disorder homelessness Plan: -Continue to monitor off abx unless ongoing fever, leukocytosis and/or HD unstable -f/u cx -Monitor CBC/CMP, temperatures -Bcx x2 -HIV ab screen, VL, RPR, GCCL Thank you for consulting [facility]. Will continue to follow along with you. Discussed with Brenda Cee M.D. Apr 12, 2020 16:03
[2020-04-12] MEDS ORDERED: D5 1/2NS 1000ml IV ONE (16:23)
[2020-04-12 20:00] VITALS: BP 134/84
[2020-04-13] VITALS: BP 120/90
[2020-04-13 04:00] VITALS: BP 107/64
[2020-04-13 07:47] LABS: BASOPHILS % (AUTO) 0.6 % (0.0-2.0); EOSINOPHILS % (AUTO) 7.3 % (0.0-3.0); HEMATOCRIT 41.9 % (42.0-52.0); HEMOGLOBIN 13.1 G/DL (14.2-18.0); LYMPHOCYTES % (AUTO) 29.3 % (20.0-45.0); MEAN CORPUSCULAR VOLUME 81 FL (80-99); MONOCYTES % (AUTO) 7.6 % (1.0-10.0); NEUTROPHILS % (AUTO) 55.3 % (45.0-75.0); PLATELET COUNT 133 K/UL (150-450); RED BLOOD COUNT 5.19 M/UL (4.70-6.10); RED CELL DISTRIBUTION WIDTH 17.8 % (11.6-14.8); WHITE BLOOD COUNT 5.8 K/UL (4.8-10.8)
[2020-04-13 08:00] VITALS: BP 114/75
[2020-04-13 08:20] LABS: ANION GAP 9 mmol/L (5-15); BLOOD UREA NITROGEN 7 mg/dL (7-18); CALCIUM 8.6 MG/DL (8.5-10.1); CARBON DIOXIDE 29 MMOL/L (21-32); CHLORIDE 104 MMOL/L (98-107); POTASSIUM 4.2 MMOL/L (3.5-5.1); SODIUM 141 MMOL/L (136-145)
[2020-04-13] MEDS: Pantoprazole Inj IV SCH (09:06)
[2020-04-13] MEDS: Heparin 5000 units/ml inj SUBQ SCH ×2 (09:07→20:32)
[2020-04-13 12:00] VITALS: BP 111/78
--- NOTE | 2020-04-13 14:33 | Internal Med Progress Note ---
Subjective Date of Service: Apr 13, 2020 Physician Name Fisher,Nikos Attending Physician Yuriy Kendrick MD Current Medications Medications (Trade) Dose Ordered Sig/Tyrell Route PRN Reason Start Time Stop Time Status Last Admin Dose Admin Acetaminophen (Tylenol) 650 mg Q4H PRN ORAL fever 04/11/20 00:15 05/11/20 00:14 04/11/20 23:20 Budesonide/ Formoterol Fumarate (Symbicort 160/ 4.5) 1 puff TWICE A DAY INH 04/11/20 18:00 07/10/20 17:59 04/13/20 09:08 Dextrose (Dextrose 50%) 25 ml Q30M PRN IV Hypoglycemia 04/11/20 00:15 07/10/20 00:14 Dextrose (Dextrose 50%) 50 ml Q30M PRN IV Hypoglycemia 04/11/20 00:15 07/10/20 00:14 Diphenhydramine HCl (Benadryl) 25 mg Q6H PRN ORAL Itching/Pruritis 04/11/20 00:15 05/11/20 00:14 Furosemide (Lasix) 20 mg DAILY ORAL 04/12/20 09:00 05/12/20 08:59 04/13/20 09:06 Heparin Sodium (Porcine) (Heparin 5000 units/ml) 5,000 units EVERY 12 HOURS SUBQ 04/11/20 09:00 05/26/20 08:59 04/13/20 09:07 Metoclopramide HCl (Reglan) 10 mg Q6H PRN IVP servere nauasea 04/11/20 00:15 05/11/20 00:14 Nitroglycerin (Ntg) 0.4 mg Q5M X 3 DOSES PRN SL Prn Chest Pain 04/11/20 00:15 05/11/20 00:14 04/13/20 02:01 Ondansetron HCl (Zofran) 4 mg Q6H PRN IVP Nausea & Vomiting 04/11/20 00:15 05/11/20 00:14 04/11/20 05:43 Pantoprazole (Protonix) 40 mg DAILY IV 04/11/20 09:00 05/11/20 08:59 04/13/20 09:06 Polyethylene Glycol (Miralax) 17 gm HSPRN PRN ORAL Constipation 04/11/20 00:15 05/11/20 00:14 Temazepam (Restoril) 15 mg HSPRN PRN ORAL Insomnia 04/11/20 00:15 04/18/20 00:14 Allergies: Coded Allergies: No Known Allergies (Unverified , 02/07/19) ROS Limited/Unobtainable: No Constitutional: Reports: weakness HEENT: Reports: no symptoms Cardiovascular: Reports: no symptoms Respiratory: Reports: no symptoms Gastrointestinal/Abdominal: Reports: no symptoms Genitourinary: Reports: no symptoms Neurologic/Psychiatric: Reports: no symptoms Subjective 69 YO M with history of chronic lumbar pain and opiate dependence. Now admitted for generalized weakness and diarrhea. Cover for Int [place]-Dr Kendrick Objective Last Vital Signs Date Time Temp Pulse Resp B/P (MAP) Pulse Ox O2 Delivery O2 Flow Rate FiO2 04/13/20 08:00 97.5 79 20 114/75 (88) 98 04/12/20 21:00 Room Air 04/11/20 00:35 99 Laboratory Tests Test 04/12/20 16:40 04/13/20 05:55 Chlamydia trachomatis RNA Pending Neisseria gonorrhoeae RNA Pending White Blood Count 5.8 K/UL (4.8-10.8) Red Blood Count 5.19 M/UL (4.70-6.10) Hemoglobin 13.1 G/DL (14.2-18.0) L Hematocrit 41.9 % (42.0-52.0) L Mean Corpuscular Volume 81 FL (80-99) Mean Corpuscular Hemoglobin 25.2 PG (27.0-31.0) L Mean Corpuscular Hemoglobin Concent 31.2 G/DL (32.0-36.0) L Red Cell Distribution Width 17.8 % (11.6-14.8) H Platelet Count 133 K/UL (150-450) L Mean Platelet Volume 7.3 FL (6.5-10.1) Neutrophils (%) (Auto) 55.3 % (45.0-75.0) Lymphocytes (%) (Auto) 29.3 % (20.0-45.0) Monocytes (%) (Auto) 7.6 % (1.0-10.0) Eosinophils (%) (Auto) 7.3 % (0.0-3.0) H Basophils (%) (Auto) 0.6 % (0.0-2.0) Sodium Level 141 MMOL/L (136-145) Potassium Level 4.2 MMOL/L (3.5-5.1) Chloride Level 104 MMOL/L (98-107) Carbon Dioxide Level 29 MMOL/L (21-32) Anion Gap 9 mmol/L (5-15) Blood Urea Nitrogen 7 mg/dL (7-18) Creatinine 1.0 MG/DL (0.55-1.30) Estimat Glomerular Filtration Rate > 60 mL/min (>60) Glucose Level 96 MG/DL (74-106) Calcium Level 8.6 MG/DL (8.5-10.1) Troponin I 0.000 ng/mL (0.000-0.056) Rapid Plasma Reagin Pending HIV-1 RNA (PCR) log10 Value Pending HIV-1 RNA Ultraquantitative (PCR) Pending HIV (1&2) Antibody Rapid Negative (NEGATIVE) Microbiology Date/Time Source Procedure Growth Status 04/10/20 23:00 Nasal Nares MRSA Culture - Final NO METHICILLIN RESISTANT STAPH AUREUS... Complete 04/10/20 21:10 Nasopharynx SARS-CoV-2 RdRp Gene Assay - Final Complete 04/10/20 23:00 Rectum - Final NO CARBAPENEM-RESISTANT ENTEROBACTERI... Complete 04/10/20 23:00 Rectum VRE Culture - Final NO VANCOMYCIN RESISTANT ENTEROCOCCUS ... Complete Intake and Output 04/12/20 04/13/20 19:00 07:00 Intake Total 400 ml Output Total 1200 ml 900 ml Balance -800 ml -900 ml Intake Oral 400 ml Output Urine Total 1200 ml 900 ml # Voids 3 4 # Bowel Movements 1 Objective General Appearance: WD/WN, no apparent distress, alert EENT: PERRL/EOMI, normal ENT inspection Neck: non-tender, normal alignment, supple, normal inspection Cardiovascular: normal peripheral pulses, normal rate, regular rhythm, no gallop/murmur, no JVD Respiratory/Chest: chest wall non-tender, lungs clear, normal breath sounds, no respiratory distress, no accessory muscle use Abdomen: normal bowel sounds, non tender, soft, no organomegaly, no mass Extremities: normal range of motion, non-tender Neurologic: stable hand II-XII grossly normal, no motor/sensory deficits Skin: normal pigmentation, warm/dry Assessment/Plan Problem List: (1) HTN (hypertension) (2) Opiate dependence, continuous (3) Benzodiazepine dependence, continuous (4) CHF (congestive heart failure) Assessment & Plan: Continue lasix (5) Generalized weakness (6) Chronic back pain (7) Diarrhea Assessment & Plan: ?opiate withdrawal? Nikos Fisher MD Apr 13, 2020 14:33
--- NOTE | 2020-04-13 15:09 | Cardiology Report ---
APPROVED REPORT EXAM: Two-dimensional and M-mode echocardiogram with Doppler and color Doppler. INDICATION Left Ventricular Function M-Mode DIMENSIONS IVSd0.8 (0.7-1.1cm)Left Atrium (MM)3.5 (1.6-4.0cm) LVDd5.4 (3.5-5.6cm)Aortic Root3.2 (2.0-3.7cm) PWd1.0 (0.7-1.1cm)Aortic Cusp Exc.2.1 (1.5-2.0cm) IVSs1.5 cmEPSS0.3 (>1.0cm) LVDs2.9 (2.5-4.0cm) PWs2.1 cm <Conclusion> Normal left ventricular chamber size, systolic function and wall motion. Left ventricular ejection fraction estimated to be 65 %. Mild left ventricular hypertrophy. No evidence of pericardial effusion. All other cardiac chamber sizes are within normal limits. Focal aortic valve sclerosis with adequate cusp excursion. Thickened mitral valve leaflets with normal excursion. Mitral annulus and aortic root calcification. Normal pulmonic valve structure. . Normal tricuspid valve structure. IVC view is not obtainable. A color flow and spectral Doppler study was performed and revealed: No aortic regurgitation. Trace mitral regurgitation. Mitral diastolic velocities suggest reduced left ventricular relaxation c/w mild diastolic dysfunction (Grade I). Trace tricuspid regurgitation. Tricuspid systolic velocities suggests peak right ventricular systolic pressure of 10 mmHg.
[2020-04-13 16:00] VITALS: BP 120/88
--- NOTE | 2020-04-13 18:46 | Cardiac Electrophysiology PN ---
Subjective Subjective [id number] Objective Last 24 Hour Vital Signs Date Time Temp Pulse Resp B/P (MAP) Pulse Ox O2 Delivery O2 Flow Rate FiO2 04/13/20 16:00 71 04/13/20 16:00 98.8 91 20 120/88 (99) 100 04/13/20 12:00 70 04/13/20 12:00 97.3 96 20 111/78 (89) 97 04/13/20 09:00 Room Air 04/13/20 08:00 97.5 79 20 114/75 (88) 98 04/13/20 08:00 89 04/13/20 04:00 98.2 78 19 107/64 (78) 97 04/13/20 04:00 74 04/13/20 02:01 132/84 04/13/20 00:00 70 04/13/20 00:00 98.6 77 19 120/90 (100) 95 04/12/20 21:00 Room Air 04/12/20 20:00 99.1 79 19 134/84 (101) 97 04/12/20 20:00 77 Intake and Output 04/12/20 04/13/20 19:00 07:00 Intake Total 400 ml Output Total 1200 ml 900 ml Balance -800 ml -900 ml Intake Oral 400 ml Output Urine Total 1200 ml 900 ml # Voids 3 4 # Bowel Movements 1 Laboratory Tests Test 04/13/20 05:55 White Blood Count 5.8 K/UL (4.8-10.8) Red Blood Count 5.19 M/UL (4.70-6.10) Hemoglobin 13.1 G/DL (14.2-18.0) L Hematocrit 41.9 % (42.0-52.0) L Mean Corpuscular Volume 81 FL (80-99) Mean Corpuscular Hemoglobin 25.2 PG (27.0-31.0) L Mean Corpuscular Hemoglobin Concent 31.2 G/DL (32.0-36.0) L Red Cell Distribution Width 17.8 % (11.6-14.8) H Platelet Count 133 K/UL (150-450) L Mean Platelet Volume 7.3 FL (6.5-10.1) Neutrophils (%) (Auto) 55.3 % (45.0-75.0) Lymphocytes (%) (Auto) 29.3 % (20.0-45.0) Monocytes (%) (Auto) 7.6 % (1.0-10.0) Eosinophils (%) (Auto) 7.3 % (0.0-3.0) H Basophils (%) (Auto) 0.6 % (0.0-2.0) Sodium Level 141 MMOL/L (136-145) Potassium Level 4.2 MMOL/L (3.5-5.1) Chloride Level 104 MMOL/L (98-107) Carbon Dioxide Level 29 MMOL/L (21-32) Anion Gap 9 mmol/L (5-15) Blood Urea Nitrogen 7 mg/dL (7-18) Creatinine 1.0 MG/DL (0.55-1.30) Estimat Glomerular Filtration Rate > 60 mL/min (>60) Glucose Level 96 MG/DL (74-106) Calcium Level 8.6 MG/DL (8.5-10.1) Troponin I 0.000 ng/mL (0.000-0.056) Rapid Plasma Reagin Pending HIV-1 RNA (PCR) log10 Value Pending HIV-1 RNA Ultraquantitative (PCR) Pending HIV (1&2) Antibody Rapid Negative (NEGATIVE) Microbiology Date/Time Source Procedure Growth Status 04/10/20 23:00 Nasal Nares MRSA Culture - Final NO METHICILLIN RESISTANT STAPH AUREUS... Complete 04/10/20 21:10 Nasopharynx SARS-CoV-2 RdRp Gene Assay - Final Complete 04/10/20 23:00 Rectum - Final NO CARBAPENEM-RESISTANT ENTEROBACTERI... Complete 04/10/20 23:00 Rectum VRE Culture - Final NO VANCOMYCIN RESISTANT ENTEROCOCCUS ... Complete Frankie Piña MD Apr 13, 2020 18:46
[2020-04-13] MEDS ORDERED: Lexiscan 0.4mg/5ml syringe IV PRN (19:00)
--- NOTE | 2020-04-13 19:17 | Pulmonology Progress Note ---
Subjective ROS Limited/Unobtainable: No Constitutional: Reports: no symptoms HEENT: Repors: no symptoms Allergies: Coded Allergies: No Known Allergies (Unverified , 02/07/19) Objective Last 24 Hour Vital Signs Date Time Temp Pulse Resp B/P (MAP) Pulse Ox O2 Delivery O2 Flow Rate FiO2 04/13/20 16:00 71 04/13/20 16:00 98.8 91 20 120/88 (99) 100 04/13/20 12:00 70 04/13/20 12:00 97.3 96 20 111/78 (89) 97 04/13/20 09:00 Room Air 04/13/20 08:00 97.5 79 20 114/75 (88) 98 04/13/20 08:00 89 04/13/20 04:00 98.2 78 19 107/64 (78) 97 04/13/20 04:00 74 04/13/20 02:01 132/84 04/13/20 00:00 70 04/13/20 00:00 98.6 77 19 120/90 (100) 95 04/12/20 21:00 Room Air 04/12/20 20:00 99.1 79 19 134/84 (101) 97 04/12/20 20:00 77 Intake and Output 04/12/20 04/13/20 19:00 07:00 Intake Total 400 ml Output Total 1200 ml 900 ml Balance -800 ml -900 ml Intake Oral 400 ml Output Urine Total 1200 ml 900 ml # Voids 3 4 # Bowel Movements 1 General Appearance: WD/WN HEENT: normocephalic Respiratory: chest wall non-tender, normal breath sounds Cardiovascular: normal peripheral pulses, normal rate Abdomen: soft, non tender, non distended, no mass Genitourinary: normal external genitalia Extremities: no cyanosis Skin: no ulcers Microbiology Date/Time Source Procedure Growth Status 04/10/20 23:00 Nasal Nares MRSA Culture - Final NO METHICILLIN RESISTANT STAPH AUREUS... Complete 04/10/20 21:10 Nasopharynx SARS-CoV-2 RdRp Gene Assay - Final Complete 04/10/20 23:00 Rectum - Final NO CARBAPENEM-RESISTANT ENTEROBACTERI... Complete 04/10/20 23:00 Rectum VRE Culture - Final NO VANCOMYCIN RESISTANT ENTEROCOCCUS ... Complete Laboratory Tests 04/13/20 05:55: White Blood Count 5.8, Red Blood Count 5.19, Hemoglobin 13.1L, Hematocrit 41.9L , Mean Corpuscular Volume 81, Mean Corpuscular Hemoglobin 25.2L, Mean Corpuscular Hemoglobin Concent 31.2L, Red Cell Distribution Width 17.8H, Platelet Count 133L, Mean Platelet Volume 7.3, Neutrophils (%) (Auto) 55.3, Lymphocytes (%) (Auto) 29.3, Monocytes (%) (Auto) 7.6, Eosinophils (%) (Auto) 7.3H, Basophils (%) (Auto) 0.6, Sodium Level 141, Potassium Level 4.2, Chloride Level 104, Carbon Dioxide Level 29, Anion Gap 9, Blood Urea Nitrogen 7, Creatinine 1.0, Estimat Glomerular Filtration Rate > 60, Glucose Level 96, Calcium Level 8.6, Troponin I 0.000, Rapid Plasma Reagin [Pending], HIV-1 RNA ( PCR) log10 Value [Pending], HIV-1 RNA Ultraquantitative (PCR) [Pending], HIV (1& 2) Antibody Rapid Negative Current Medications Medications (Trade) Dose Ordered Sig/Tyrell Route PRN Reason Start Time Stop Time Status Last Admin Dose Admin Acetaminophen (Tylenol) 650 mg Q4H PRN ORAL fever 04/11/20 00:15 05/11/20 00:14 04/11/20 23:20 Budesonide/ Formoterol Fumarate (Symbicort 160/ 4.5) 1 puff TWICE A DAY INH 04/11/20 18:00 07/10/20 17:59 04/13/20 19:01 Dextrose (Dextrose 50%) 25 ml Q30M PRN IV Hypoglycemia 04/11/20 00:15 07/10/20 00:14 Dextrose (Dextrose 50%) 50 ml Q30M PRN IV Hypoglycemia 04/11/20 00:15 07/10/20 00:14 Diphenhydramine HCl (Benadryl) 25 mg Q6H PRN ORAL Itching/Pruritis 04/11/20 00:15 05/11/20 00:14 Furosemide (Lasix) 40 mg DAILY ORAL 04/14/20 09:00 05/12/20 08:59 Heparin Sodium (Porcine) (Heparin 5000 units/ml) 5,000 units EVERY 12 HOURS SUBQ 04/11/20 09:00 05/26/20 08:59 04/13/20 09:07 Metoclopramide HCl (Reglan) 10 mg Q6H PRN IVP servere nauasea 04/11/20 00:15 05/11/20 00:14 Nitroglycerin (Ntg) 0.4 mg Q5M X 3 DOSES PRN SL Prn Chest Pain 04/11/20 00:15 05/11/20 00:14 04/13/20 02:01 Ondansetron HCl (Zofran) 4 mg Q6H PRN IVP Nausea & Vomiting 04/11/20 00:15 05/11/20 00:14 04/11/20 05:43 Pantoprazole (Protonix) 40 mg DAILY IV 04/11/20 09:00 05/11/20 08:59 04/13/20 09:06 Polyethylene Glycol (Miralax) 17 gm HSPRN PRN ORAL Constipation 04/11/20 00:15 05/11/20 00:14 Regadenoson (Lexiscan) 0.4 mg ONCE PRN IV DIAGONISTIC TEST 04/13/20 19:00 04/15/20 18:59 Temazepam (Restoril) 15 mg HSPRN PRN ORAL Insomnia 04/11/20 00:15 04/18/20 00:14 Assessment/Plan Problems: (1) Intractable abdominal pain (2) CHF (congestive heart failure) (3) Generalized weakness (4) Hypertension (5) Chronic back pain (6) ETOH abuse (7) Homelessness Assessment/Plan slightly better symptomatic treatment had low grade fever peterson cultures and ID evaluation\ check echocardiogram meds reviewed dvt prophylaxis Argelia Brooks MD Apr 13, 2020 19:17
[2020-04-13 20:00] VITALS: BP 114/78
[2020-04-14] VITALS: BP 131/74
--- NOTE | 2020-04-14 01:59 | Consultation ---
DATE OF CONSULTATION: 04/13/2020 CARDIOLOGY CONSULTATION REFERRING PHYSICIAN: Yuriy Kendrick M.D. CONSULTING PHYSICIAN: Frankie Piña M.D. REASON FOR CONSULTATION: Congestive heart failure and 4 beats of ventricular tachycardia. HISTORY OF PRESENT ILLNESS: The patient is a 69-year-old gentleman with history of hypertension, congestive heart failure, and chronic back pain for several years, he has been on pain medication, who presented to the hospital with generalized weakness and nausea and back pain. The patient also was complaining of shortness of breath and bilateral lower extremity edema that is getting worse. The patient was admitted and was found to have actually hypertension and also 12 beats of ventricular tachycardia while at telemetry. Cardiology consultation was obtained for further evaluation and management. REVIEW OF SYSTEMS: Negative other than what is mentioned in history of present illness. PAST MEDICAL HISTORY: As mentioned above. FAMILY HISTORY: Noncontributory. SOCIAL HISTORY: Denies smoking or using street drugs. PHYSICAL EXAMINATION: VITAL SIGNS: Blood pressure of 120/80, pulse 70, respirations 18, and temperature 98.8. NECK: No JVD. LUNGS: Clear. CARDIOVASCULAR: Shows regular S1 and S2 with no gallop or murmur. ABDOMEN: Soft. EXTREMITIES: 1+ pitting edema. LABORATORY DATA: His EKG showed sinus rhythm with an LVH. He has echocardiogram with ejection fraction of 65% with mild left ventricular hypertrophy. His telemetry strip showed nonsustained ventricular tachycardia. Labs show white count of 5.8, hemoglobin 13.1, hematocrit of 42, and platelet count of 133,000. Sodium is 141, potassium 4.2, BUN of 7, creatinine of 1, and glucose of 96. Troponin is negative x2. Urine tox screen is negative. ASSESSMENT AND PLAN: 1. Nonsustained ventricular tachycardia. The etiology is not clear at this time. Urine toxic screen is negative. He was already ruled out for myocardial infarction. His echocardiography reveals EF of 65% and the patient would need a stress test and was scheduled for a nuclear stress test for further evaluation. 2. Hypertension. The patient is on Lasix 40 mg p.o. daily. 3. Congestive heart failure. Echocardiogram showed normal left ventricular systolic function with EF of 65%. His BNP is also mildly elevated to 169 low-dose Lasix. 4. Chronic back pain. 5. Abdominal pain. Further evaluation by Pain Management. 6. COPD. Thank you very much for allowing me to participate in the care of this patient. Please do not hesitate to contact me for any questions regarding my evaluation. Sincerely, Frankie Piña M.D. DR: ROMARIO JOB#: [id number] CC:
[2020-04-14 04:47] VITALS: BP 111/69
--- NOTE | 2020-04-14 07:15 | History and Physical Report ---
DATE OF ADMISSION: 04/10/2020 CHIEF COMPLAINT: Abdominal pain and pedal edema. HISTORY OF PRESENT ILLNESS: This is a 69-year-old female with past medical history significant for chronic back pain and hypertension, who has been under the care for pain medication by Dr. Rio Choi, presented to the emergency department complaining about generalized weakness, nausea, and lower abdominal pain. The patient said that the back pain is the same always. She ran out of her Bar[place]. She was prescribed Barrington with last prescription was on March 14, 2020, but already took all of them. She was also prescribed clonazepam by her chronic pain specialist secondary to anxiety. The patient stated that "I don't feel good." She reported shortness of breath, nausea, bilateral lower extremity edema progressively worsening over the past several days, increased back pain, and left buttock area pain. Denies any fever, chills, urinary retention, bowel or urine incontinence, saddle anesthesia, difficulty walking, focal weakness, or chest pain. Shortly after initial evaluation in the emergency department, the patient was admitted to the hospital with abdominal discomfort, generalized weakness, and pedal edema possibly due to the fluid overload and CHF exacerbation. PAST MEDICAL HISTORY/PAST SURGICAL HISTORY: As above history of hypertension and chronic back pain. Denies any past surgical history. MEDICATIONS AT HOME: Please refer to medication reconciliation. ALLERGIES: No known drug allergies. SOCIAL HISTORY: Denies any smoking or drugs, however, she drinks alcohol. FAMILY HISTORY: Noncontributory. REVIEW OF SYSTEMS: Mostly as above. Complained about shortness of breath. Denies any fever, chills, or night sweats. Denies any chest pain. Positive nausea, but no vomiting. No diarrhea. No melena. No bright red blood per rectum. Denies any dysuria, frequency, or hematuria. Denies any loss of consciousness, falls, or seizure disorder. PHYSICAL EXAMINATION: VITAL SIGNS: On admission from the emergency department, temperature 98.2, pulse of 89, respirations 18, and blood pressure 171/94. GENERAL: The patient is awake, responsive, in no acute distress. HEAD AND NECK: Pupils are equal and reactive to light. Extraocular movements are intact. Neck was supple. No JVD. LUNGS: Good air entry. No wheezing or rales. HEART: S1, S2. Regular rhythm. No murmur or gallops. ABDOMEN: Soft, nondistended. Tenderness on deep palpation to lower abdomen area. No rebound tenderness. No fluid shift. EXTREMITIES: No cyanosis or clubbing. +2 edema in bilateral lower extremities. NEUROLOGIC: Cranial nerves II through XII grossly intact. The patient is moving all the extremities. Gait is intact. RECTAL: Refused and deferred. GENITOURINARY: Refused and deferred. PSYCHIATRIC: Mood and affect is intact. LABORATORY AND DIAGNOSTIC DATA: Laboratories on admission from the emergency department, WBC of 6.8, hemoglobin 14, hematocrit 44, platelets 156,000. Sodium 139, potassium 4.0, chloride 103, bicarb 25, BUN 16, creatinine 1.3. GFR greater than 60. Alkaline phosphatase is 114. Troponin 0.0. ProBNP of 169. Total protein is 8.6. Lipase is 256. Urine drug screen is negative. Urinalysis unremarkable. Chest x-ray noted to be no acute process. Abdominal ultrasound was done. Cholelithiasis is negative for dilated ducts. No other acute or significant abnormality noted. However, inability to visualize the abdominal aorta or pancreas. The patient's COVID-19 test is negative. ASSESSMENT: 1. Pedal edema, most likely secondary to fluid overload. 2. History of hypertension. 3. Congestive heart failure. 4. Anemia. 5. Generalized weakness. 6. Chronic lower back pain. 7. Alcohol abuse. 8. Homelessness. 9. Lower abdominal discomfort. PLAN: Admit the patient to monitored unit. We will follow up with the laboratory. Follow up with Dr. Brooks from Pulmonary Critical Care and GI consultation. Code status, Full Code. DVT prophylaxis, heparin subcutaneous and continue on Lasix. Monitor laboratory as well as culture in the morning. Yuriy Kendrick M.D. DR: RADHA JOB#: [id number] CC:
[2020-04-14 08:00] VITALS: BP 102/69
[2020-04-14] MEDS: Heparin 5000 units/ml inj SUBQ SCH ×2 (09:00→21:00)
[2020-04-14 09:12] LABS: BASOPHILS % (AUTO) 0.7 % (0.0-2.0); HEMATOCRIT 40.4 % (42.0-52.0); HEMOGLOBIN 12.8 G/DL (14.2-18.0); LYMPHOCYTES % (AUTO) 28.7 % (20.0-45.0); MEAN CORPUSCULAR VOLUME 82 FL (80-99); MONOCYTES % (AUTO) 8.8 % (1.0-10.0); NEUTROPHILS % (AUTO) 53.9 % (45.0-75.0); PLATELET COUNT 124 K/UL (150-450); RED BLOOD COUNT 4.94 M/UL (4.70-6.10); RED CELL DISTRIBUTION WIDTH 19.9 % (11.6-14.8); WHITE BLOOD COUNT 6.1 K/UL (4.8-10.8)
[2020-04-14] MEDS: Pantoprazole Inj IV SCH (09:24)
[2020-04-14 09:52] LABS: ANION GAP 11 mmol/L (5-15); BLOOD UREA NITROGEN 7 mg/dL (7-18); CARBON DIOXIDE 28 MMOL/L (21-32); CHLORIDE 106 MMOL/L (98-107); POTASSIUM 3.4 MMOL/L (3.5-5.1); SODIUM 144 MMOL/L (136-145)
--- NOTE | 2020-04-14 11:58 | Pulmonology Progress Note ---
Subjective ROS Limited/Unobtainable: No Interval Events: less abdominal pain Constitutional: Reports: no symptoms HEENT: Repors: no symptoms Allergies: Coded Allergies: No Known Allergies (Unverified , 02/07/19) Objective Last 24 Hour Vital Signs Date Time Temp Pulse Resp B/P (MAP) Pulse Ox O2 Delivery O2 Flow Rate FiO2 04/14/20 09:59 87 20 97 Room Air 21 04/14/20 09:58 86 20 97 Room Air 21 04/14/20 09:00 Room Air 04/14/20 08:00 67 04/14/20 08:00 97.6 66 20 102/69 (80) 98 04/14/20 04:47 97.7 66 20 111/69 (83) 98 04/14/20 04:00 70 04/14/20 00:00 67 04/14/20 00:00 97.5 64 19 131/74 (93) 97 04/13/20 21:05 98.8 04/13/20 21:00 Room Air 04/13/20 20:00 67 04/13/20 20:00 97.7 68 21 114/78 (90) 95 04/13/20 16:00 71 04/13/20 16:00 98.8 91 20 120/88 (99) 100 04/13/20 12:00 70 04/13/20 12:00 97.3 96 20 111/78 (89) 97 Intake and Output 04/13/20 04/14/20 19:00 07:00 Intake Total 400 ml Output Total 2300 ml Balance -1900 ml Intake Oral 400 ml Output Urine Total 2300 ml # Voids 6 # Bowel Movements 1 1 General Appearance: WD/WN HEENT: normocephalic Respiratory: chest wall non-tender, normal breath sounds Cardiovascular: normal peripheral pulses, normal rate Abdomen: soft, non tender, non distended, no mass Genitourinary: normal external genitalia Extremities: no cyanosis Skin: no ulcers Microbiology Date/Time Source Procedure Growth Status 04/12/20 16:33 Blood Blood Culture - Preliminary NO GROWTH AFTER 24 HOURS Resulted 04/12/20 16:23 Blood Blood Culture - Preliminary NO GROWTH AFTER 24 HOURS Resulted Laboratory Tests 04/14/20 07:30: White Blood Count 6.1, Red Blood Count 4.94, Hemoglobin 12.8L, Hematocrit 40.4L , Mean Corpuscular Volume 82, Mean Corpuscular Hemoglobin 26.0L, Mean Corpuscular Hemoglobin Concent 31.8L, Red Cell Distribution Width 19.9H, Platelet Count 124L, Mean Platelet Volume 6.8, Neutrophils (%) (Auto) 53.9, Lymphocytes (%) (Auto) 28.7, Monocytes (%) (Auto) 8.8, Eosinophils (%) (Auto) 8.0H, Basophils (%) (Auto) 0.7, Sodium Level 144, Potassium Level 3.4L, Chloride Level 106, Carbon Dioxide Level 28, Anion Gap 11, Blood Urea Nitrogen 7 , Creatinine 1.0, Estimat Glomerular Filtration Rate > 60, Glucose Level 95, Calcium Level 7.0L, Pro-B-Type Natriuretic Peptide 54 Current Medications Medications (Trade) Dose Ordered Sig/Tyrell Route PRN Reason Start Time Stop Time Status Last Admin Dose Admin Acetaminophen (Tylenol) 650 mg Q4H PRN ORAL fever 04/11/20 00:15 05/11/20 00:14 04/13/20 20:35 Budesonide/ Formoterol Fumarate (Symbicort 160/ 4.5) 1 puff TWICE A DAY INH 04/11/20 18:00 07/10/20 17:59 04/14/20 09:58 Dextrose (Dextrose 50%) 25 ml Q30M PRN IV Hypoglycemia 04/11/20 00:15 07/10/20 00:14 Dextrose (Dextrose 50%) 50 ml Q30M PRN IV Hypoglycemia 04/11/20 00:15 07/10/20 00:14 Diphenhydramine HCl (Benadryl) 25 mg Q6H PRN ORAL Itching/Pruritis 04/11/20 00:15 05/11/20 00:14 Furosemide (Lasix) 40 mg DAILY ORAL 04/14/20 09:00 05/12/20 08:59 04/14/20 09:24 Heparin Sodium (Porcine) (Heparin 5000 units/ml) 5,000 units EVERY 12 HOURS SUBQ 04/11/20 09:00 05/26/20 08:59 04/13/20 09:07 Metoclopramide HCl (Reglan) 10 mg Q6H PRN IVP servere nauasea 04/11/20 00:15 05/11/20 00:14 Nitroglycerin (Ntg) 0.4 mg Q5M X 3 DOSES PRN SL Prn Chest Pain 04/11/20 00:15 05/11/20 00:14 04/13/20 02:01 Ondansetron HCl (Zofran) 4 mg Q6H PRN IVP Nausea & Vomiting 04/11/20 00:15 05/11/20 00:14 04/11/20 05:43 Pantoprazole (Protonix) 40 mg DAILY IV 04/11/20 09:00 05/11/20 08:59 04/14/20 09:24 Polyethylene Glycol (Miralax) 17 gm HSPRN PRN ORAL Constipation 04/11/20 00:15 05/11/20 00:14 04/13/20 20:35 Temazepam (Restoril) 15 mg HSPRN PRN ORAL Insomnia 04/11/20 00:15 04/18/20 00:14 Assessment/Plan Problems: (1) Intractable abdominal pain (2) CHF (congestive heart failure) (3) Generalized weakness (4) Hypertension (5) Chronic back pain (6) ETOH abuse (7) Homelessness Assessment/Plan stress study ordered slightly better symptomatic treatment had low grade fever peterson cultures and ID evaluation\ check echocardiogram, EF 65% meds reviewed dvt prophylaxis pt/ot evaluation Argelia Brooks MD Apr 14, 2020 11:58
[2020-04-14 12:00] VITALS: BP 126/85
--- NOTE | 2020-04-14 12:31 | General Progress Note ---
Assessment/Plan Status: not improved Assessment/Plan: 1. Pedal edema, most likely secondary to fluid overload. 2. hypertension. 3. Congestive heart failure. 4. Anemia. 5. Generalized weakness. 6. Chronic lower back pain. 7. Alcohol abuse. 8. Homelessness. 9. Lower abdominal discomfort. 10. gallstones going for stress test today fu cardiology recs repeat labs GI procedures on hold Subjective ROS Limited/Unobtainable: Yes Allergies: Coded Allergies: No Known Allergies (Unverified , 02/07/19) Objective Last 24 Hour Vital Signs Date Time Temp Pulse Resp B/P (MAP) Pulse Ox O2 Delivery O2 Flow Rate FiO2 04/14/20 09:59 87 20 97 Room Air 21 04/14/20 09:58 86 20 97 Room Air 21 04/14/20 09:00 Room Air 04/14/20 08:00 67 04/14/20 08:00 97.6 66 20 102/69 (80) 98 04/14/20 04:47 97.7 66 20 111/69 (83) 98 04/14/20 04:00 70 04/14/20 00:00 67 04/14/20 00:00 97.5 64 19 131/74 (93) 97 04/13/20 21:05 98.8 04/13/20 21:00 Room Air 04/13/20 20:00 67 04/13/20 20:00 97.7 68 21 114/78 (90) 95 04/13/20 16:00 71 04/13/20 16:00 98.8 91 20 120/88 (99) 100 Intake and Output 04/13/20 04/14/20 19:00 07:00 Intake Total 400 ml Output Total 2300 ml Balance -1900 ml Intake Oral 400 ml Output Urine Total 2300 ml # Voids 6 # Bowel Movements 1 1 Laboratory Tests 04/14/20 07:30: White Blood Count 6.1, Red Blood Count 4.94, Hemoglobin 12.8L, Hematocrit 40.4L , Mean Corpuscular Volume 82, Mean Corpuscular Hemoglobin 26.0L, Mean Corpuscular Hemoglobin Concent 31.8L, Red Cell Distribution Width 19.9H, Platelet Count 124L, Mean Platelet Volume 6.8, Neutrophils (%) (Auto) 53.9, Lymphocytes (%) (Auto) 28.7, Monocytes (%) (Auto) 8.8, Eosinophils (%) (Auto) 8.0H, Basophils (%) (Auto) 0.7, Sodium Level 144, Potassium Level 3.4L, Chloride Level 106, Carbon Dioxide Level 28, Anion Gap 11, Blood Urea Nitrogen 7 , Creatinine 1.0, Estimat Glomerular Filtration Rate > 60, Glucose Level 95, Calcium Level 7.0L, Pro-B-Type Natriuretic Peptide 54 Height (Feet): 5 Height (Inches): 9.00 Weight (Pounds): 170 General Appearance: alert EENT: normal ENT inspection Neck: supple Cardiovascular: normal rate Respiratory/Chest: decreased breath sounds Abdomen: normal bowel sounds, non tender, soft Extremities: non-tender Flako Medina MD Apr 14, 2020 12:31
--- NOTE | 2020-04-14 14:13 | Cardiac Electrophysiology PN ---
Assessment/Plan Assessment/Plan 1. Nonsustained ventricular tachycardia. The etiology is not clear at this time. Urine toxic screen is negative. He was already ruled out for myocardial infarction. His echocardiography reveals EF of 65% Had Dobutamine nuclear stress test today and results are pending 2. Hypertension. The patient is on Lasix 40 mg p.o. daily. 3. Congestive heart failure. Echocardiogram showed normal left ventricular systolic function with EF of 65%. His BNP is also mildly elevated to 169 low-dose Lasix. 4. Chronic back pain. 5. Abdominal pain. Further evaluation by Pain Management. 6. COPD. Subjective Subjective Remained in SR. Had Dobutamine Cardiolite today Objective Last 24 Hour Vital Signs Date Time Temp Pulse Resp B/P (MAP) Pulse Ox O2 Delivery O2 Flow Rate FiO2 04/14/20 12:00 98.8 91 18 126/85 (99) 97 04/14/20 12:00 82 04/14/20 09:59 87 20 97 Room Air 21 04/14/20 09:58 86 20 97 Room Air 21 04/14/20 09:00 Room Air 04/14/20 08:00 67 04/14/20 08:00 97.6 66 20 102/69 (80) 98 04/14/20 04:47 97.7 66 20 111/69 (83) 98 04/14/20 04:00 70 04/14/20 00:00 67 04/14/20 00:00 97.5 64 19 131/74 (93) 97 04/13/20 21:05 98.8 04/13/20 21:00 Room Air 04/13/20 20:00 67 04/13/20 20:00 97.7 68 21 114/78 (90) 95 04/13/20 16:00 71 04/13/20 16:00 98.8 91 20 120/88 (99) 100 Intake and Output 04/13/20 04/14/20 19:00 07:00 Intake Total 400 ml Output Total 2300 ml Balance -1900 ml Intake Oral 400 ml Output Urine Total 2300 ml # Voids 6 # Bowel Movements 1 1 Laboratory Tests Test 04/14/20 07:30 White Blood Count 6.1 K/UL (4.8-10.8) Red Blood Count 4.94 M/UL (4.70-6.10) Hemoglobin 12.8 G/DL (14.2-18.0) L Hematocrit 40.4 % (42.0-52.0) L Mean Corpuscular Volume 82 FL (80-99) Mean Corpuscular Hemoglobin 26.0 PG (27.0-31.0) L Mean Corpuscular Hemoglobin Concent 31.8 G/DL (32.0-36.0) L Red Cell Distribution Width 19.9 % (11.6-14.8) H Platelet Count 124 K/UL (150-450) L Mean Platelet Volume 6.8 FL (6.5-10.1) Neutrophils (%) (Auto) 53.9 % (45.0-75.0) Lymphocytes (%) (Auto) 28.7 % (20.0-45.0) Monocytes (%) (Auto) 8.8 % (1.0-10.0) Eosinophils (%) (Auto) 8.0 % (0.0-3.0) H Basophils (%) (Auto) 0.7 % (0.0-2.0) Sodium Level 144 MMOL/L (136-145) Potassium Level 3.4 MMOL/L (3.5-5.1) L Chloride Level 106 MMOL/L (98-107) Carbon Dioxide Level 28 MMOL/L (21-32) Anion Gap 11 mmol/L (5-15) Blood Urea Nitrogen 7 mg/dL (7-18) Creatinine 1.0 MG/DL (0.55-1.30) Estimat Glomerular Filtration Rate > 60 mL/min (>60) Glucose Level 95 MG/DL (74-106) Calcium Level 7.0 MG/DL (8.5-10.1) L Pro-B-Type Natriuretic Peptide 54 pg/mL (0-125) Microbiology Date/Time Source Procedure Growth Status 04/12/20 16:33 Blood Blood Culture - Preliminary NO GROWTH AFTER 24 HOURS Resulted 04/12/20 16:23 Blood Blood Culture - Preliminary NO GROWTH AFTER 24 HOURS Resulted Objective NECK: No JVD. LUNGS: Clear. CARDIOVASCULAR: Regular S1 and S2 with no gallop or murmur. ABDOMEN: Soft. EXTREMITIES: 1+ pitting edema. Frankie Piña MD Apr 14, 2020 14:13
--- NOTE | 2020-04-14 14:34 | Diagnostic Imaging Report ---
INDICATION: Chest pain. Comparison: None available. TECHNIQUE: Using a one day protocol, the patient was injected IV with 10.5 mCi of Tc Myoview. Thirty minutes later, resting gated SPECT images were acquired. Through a previously established IV site, using a bolus injection chemical stress infusion protocol, the patient was given 0.4 mg of Lexiscan followed by a bolus injection of 21.3 mCi of Tc Myoview. The patient was monitored until vital signs returned acceptable levels. Gated stress SPECT supine images were acquired at 30 minutes post Tc Cardiolite injection. The images were processed and displayed in the short axis, vertical and horizontal long axis, and compared with resting images. The gated stress supine images were additionally processed and evaluated for myocardial wall motion and global left ventricular ejection fraction. FINDINGS: On both stress and resting images, there is photopenia noted along the inferior wall of the myocardium compatible with a fixed infarct. At the inferior aspect of the cardiac apex, there is a small defect on stress images which appears to improved on subsequent resting images. This may represent a small area of reversible ischemia. The left ventricular ejection fraction is 60 %, which is within normal limits. End-diastolic and end-systolic volumes of 96 mL and 38 mL respectively were noted. IMPRESSION: FIXED PHOTOPENIC AREA IN THE INFERIOR WALL OF THE MYOCARDIUM ON BOTH STRESS AND RESTING IMAGES COMPATIBLE WITH OLD FIXED INFARCT. HOWEVER THERE IS A SMALLER PHOTOPENIC AREA AT THE INFERIOR APEX WHICH SHOWS IMPROVEMENT ON RESTING IMAGES COMPATIBLE WITH A SMALL AREA OF REVERSIBLE ISCHEMIA. EJECTION FRACTION IS 60%. * Please note that this study is performed without the benefit of attenuation correction. Diaphragmatic creep attenuation artifacts can mimic an inferior wall abnormality.
[2020-04-14 16:00] VITALS: BP 135/84
--- NOTE | 2020-04-14 18:03 | Infectious Diseases Prog Note ---
Assessment/Plan Assessment: COVID19 neg x1 (04/10 rapid COVID PCR neg) Nausea, generalized weakness- ?opioid withdrawal -Abd US: Cholelithiasis. Negative for dilated ducts. No other acute or significant abnormality. Note, however, inability to visualize the abdominal aorta and pancreas Low grade fever- SP- no obvious infection No leukocytosis -BCx NTD -u/a neg UDS neg HTN Asthma chronic back pain anxiety disorder homelessness Plan: -Continue to monitor off abx unless ongoing fever, leukocytosis and/or HD unstable -f/u cx -Monitor CBC/CMP, temperatures -f/u Bcx x2 -f/u HIV ab screen, VL, RPR, GCCL Thank you for consulting [facility]. Will continue to follow along with you. Discussed with RN. Subjective Allergies: Coded Allergies: No Known Allergies (Unverified , 02/07/19) afebrile >48hrs bcx NTD at RA no lekocytosis Objective Last 24 Hour Vital Signs Date Time Temp Pulse Resp B/P (MAP) Pulse Ox O2 Delivery O2 Flow Rate FiO2 04/14/20 16:00 98.1 72 18 135/84 (101) 98 04/14/20 16:00 68 04/14/20 12:00 98.8 91 18 126/85 (99) 97 04/14/20 12:00 82 04/14/20 09:59 87 20 97 Room Air 21 04/14/20 09:58 86 20 97 Room Air 21 04/14/20 09:00 Room Air 04/14/20 08:00 67 04/14/20 08:00 97.6 66 20 102/69 (80) 98 04/14/20 04:47 97.7 66 20 111/69 (83) 98 04/14/20 04:00 70 04/14/20 00:00 67 04/14/20 00:00 97.5 64 19 131/74 (93) 97 04/13/20 21:05 98.8 04/13/20 21:00 Room Air 04/13/20 20:00 67 04/13/20 20:00 97.7 68 21 114/78 (90) 95 Height (Feet): 5 Height (Inches): 9.00 Weight (Pounds): 170 General Appearance: WD/WN, no apparent distress, alert EENT: PERRL/EOMI, normal ENT inspection Neck: non-tender, normal alignment, supple, normal inspection Cardiovascular: normal peripheral pulses, normal rate, regular rhythm, no gallop/murmur, no JVD Respiratory/Chest: chest wall non-tender, lungs clear, normal breath sounds, no respiratory distress, no accessory muscle use Abdomen: normal bowel sounds, non tender, soft, no organomegaly, no mass Extremities: normal range of motion, non-tender Microbiology Date/Time Source Procedure Growth Status 04/12/20 16:33 Blood Blood Culture - Preliminary NO GROWTH AFTER 24 HOURS Resulted 04/12/20 16:23 Blood Blood Culture - Preliminary NO GROWTH AFTER 24 HOURS Resulted Laboratory Tests Test 04/14/20 07:30 04/14/20 16:05 White Blood Count 6.1 K/UL (4.8-10.8) Red Blood Count 4.94 M/UL (4.70-6.10) Hemoglobin 12.8 G/DL (14.2-18.0) L Hematocrit 40.4 % (42.0-52.0) L Mean Corpuscular Volume 82 FL (80-99) Mean Corpuscular Hemoglobin 26.0 PG (27.0-31.0) L Mean Corpuscular Hemoglobin Concent 31.8 G/DL (32.0-36.0) L Red Cell Distribution Width 19.9 % (11.6-14.8) H Platelet Count 124 K/UL (150-450) L Mean Platelet Volume 6.8 FL (6.5-10.1) Neutrophils (%) (Auto) 53.9 % (45.0-75.0) Lymphocytes (%) (Auto) 28.7 % (20.0-45.0) Monocytes (%) (Auto) 8.8 % (1.0-10.0) Eosinophils (%) (Auto) 8.0 % (0.0-3.0) H Basophils (%) (Auto) 0.7 % (0.0-2.0) Sodium Level 144 MMOL/L (136-145) Potassium Level 3.4 MMOL/L (3.5-5.1) L Chloride Level 106 MMOL/L (98-107) Carbon Dioxide Level 28 MMOL/L (21-32) Anion Gap 11 mmol/L (5-15) Blood Urea Nitrogen 7 mg/dL (7-18) Creatinine 1.0 MG/DL (0.55-1.30) Estimat Glomerular Filtration Rate > 60 mL/min (>60) Glucose Level 95 MG/DL (74-106) Calcium Level 7.0 MG/DL (8.5-10.1) L Pro-B-Type Natriuretic Peptide 54 pg/mL (0-125) HIV-1 RNA (PCR) log10 Value Pending HIV-1 RNA Ultraquantitative (PCR) Pending Current Medications Medications (Trade) Dose Ordered Sig/Tyrell Route PRN Reason Start Time Stop Time Status Last Admin Dose Admin Acetaminophen (Tylenol) 650 mg Q4H PRN ORAL fever 04/11/20 00:15 05/11/20 00:14 04/13/20 20:35 Budesonide/ Formoterol Fumarate (Symbicort 160/ 4.5) 1 puff TWICE A DAY INH 04/11/20 18:00 07/10/20 17:59 04/14/20 09:58 Dextrose (Dextrose 50%) 25 ml Q30M PRN IV Hypoglycemia 04/11/20 00:15 07/10/20 00:14 Dextrose (Dextrose 50%) 50 ml Q30M PRN IV Hypoglycemia 04/11/20 00:15 07/10/20 00:14 Diphenhydramine HCl (Benadryl) 25 mg Q6H PRN ORAL Itching/Pruritis 04/11/20 00:15 05/11/20 00:14 Furosemide (Lasix) 40 mg DAILY ORAL 04/14/20 09:00 05/12/20 08:59 04/14/20 09:24 Heparin Sodium (Porcine) (Heparin 5000 units/ml) 5,000 units EVERY 12 HOURS SUBQ 04/11/20 09:00 05/26/20 08:59 04/13/20 09:07 Metoclopramide HCl (Reglan) 10 mg Q6H PRN IVP servere nauasea 04/11/20 00:15 05/11/20 00:14 Nitroglycerin (Ntg) 0.4 mg Q5M X 3 DOSES PRN SL Prn Chest Pain 04/11/20 00:15 05/11/20 00:14 04/13/20 02:01 Ondansetron HCl (Zofran) 4 mg Q6H PRN IVP Nausea & Vomiting 04/11/20 00:15 05/11/20 00:14 04/11/20 05:43 Pantoprazole (Protonix) 40 mg DAILY IV 04/11/20 09:00 05/11/20 08:59 04/14/20 09:24 Polyethylene Glycol (Miralax) 17 gm HSPRN PRN ORAL Constipation 04/11/20 00:15 05/11/20 00:14 04/13/20 20:35 Temazepam (Restoril) 15 mg HSPRN PRN ORAL Insomnia 04/11/20 00:15 04/18/20 00:14 Brenda Sosa M.D. Apr 14, 2020 18:03
--- NOTE | 2020-04-14 18:11 | Internal Med Progress Note ---
Subjective Date of Service: Apr 14, 2020 Physician Name Fisher,Nikos Attending Physician Yuriy Kendrick MD Current Medications Medications (Trade) Dose Ordered Sig/Tyrell Route PRN Reason Start Time Stop Time Status Last Admin Dose Admin Acetaminophen (Tylenol) 650 mg Q4H PRN ORAL fever 04/11/20 00:15 05/11/20 00:14 04/13/20 20:35 Budesonide/ Formoterol Fumarate (Symbicort 160/ 4.5) 1 puff TWICE A DAY INH 04/11/20 18:00 07/10/20 17:59 04/14/20 09:58 Dextrose (Dextrose 50%) 25 ml Q30M PRN IV Hypoglycemia 04/11/20 00:15 07/10/20 00:14 Dextrose (Dextrose 50%) 50 ml Q30M PRN IV Hypoglycemia 04/11/20 00:15 07/10/20 00:14 Diphenhydramine HCl (Benadryl) 25 mg Q6H PRN ORAL Itching/Pruritis 04/11/20 00:15 05/11/20 00:14 Furosemide (Lasix) 40 mg DAILY ORAL 04/14/20 09:00 05/12/20 08:59 04/14/20 09:24 Heparin Sodium (Porcine) (Heparin 5000 units/ml) 5,000 units EVERY 12 HOURS SUBQ 04/11/20 09:00 05/26/20 08:59 04/13/20 09:07 Metoclopramide HCl (Reglan) 10 mg Q6H PRN IVP servere nauasea 04/11/20 00:15 05/11/20 00:14 Nitroglycerin (Ntg) 0.4 mg Q5M X 3 DOSES PRN SL Prn Chest Pain 04/11/20 00:15 05/11/20 00:14 04/13/20 02:01 Ondansetron HCl (Zofran) 4 mg Q6H PRN IVP Nausea & Vomiting 04/11/20 00:15 05/11/20 00:14 04/11/20 05:43 Pantoprazole (Protonix) 40 mg DAILY IV 04/11/20 09:00 05/11/20 08:59 04/14/20 09:24 Polyethylene Glycol (Miralax) 17 gm HSPRN PRN ORAL Constipation 04/11/20 00:15 05/11/20 00:14 04/13/20 20:35 Temazepam (Restoril) 15 mg HSPRN PRN ORAL Insomnia 04/11/20 00:15 04/18/20 00:14 Allergies: Coded Allergies: No Known Allergies (Unverified , 02/07/19) ROS Limited/Unobtainable: No Constitutional: Reports: no symptoms HEENT: Reports: no symptoms Cardiovascular: Reports: no symptoms Respiratory: Reports: no symptoms Gastrointestinal/Abdominal: Reports: no symptoms Genitourinary: Reports: no symptoms Neurologic/Psychiatric: Reports: no symptoms Subjective 69 YO M with history of chronic lumbar pain and opiate dependence. Now admitted for generalized weakness and diarrhea. Cover for Int [facility] Kendrick Objective Last Vital Signs Date Time Temp Pulse Resp B/P (MAP) Pulse Ox O2 Delivery O2 Flow Rate FiO2 04/14/20 16:00 98.1 72 18 135/84 (101) 98 04/14/20 09:59 Room Air 21 Laboratory Tests Test 04/14/20 07:30 04/14/20 16:05 White Blood Count 6.1 K/UL (4.8-10.8) Red Blood Count 4.94 M/UL (4.70-6.10) Hemoglobin 12.8 G/DL (14.2-18.0) L Hematocrit 40.4 % (42.0-52.0) L Mean Corpuscular Volume 82 FL (80-99) Mean Corpuscular Hemoglobin 26.0 PG (27.0-31.0) L Mean Corpuscular Hemoglobin Concent 31.8 G/DL (32.0-36.0) L Red Cell Distribution Width 19.9 % (11.6-14.8) H Platelet Count 124 K/UL (150-450) L Mean Platelet Volume 6.8 FL (6.5-10.1) Neutrophils (%) (Auto) 53.9 % (45.0-75.0) Lymphocytes (%) (Auto) 28.7 % (20.0-45.0) Monocytes (%) (Auto) 8.8 % (1.0-10.0) Eosinophils (%) (Auto) 8.0 % (0.0-3.0) H Basophils (%) (Auto) 0.7 % (0.0-2.0) Sodium Level 144 MMOL/L (136-145) Potassium Level 3.4 MMOL/L (3.5-5.1) L Chloride Level 106 MMOL/L (98-107) Carbon Dioxide Level 28 MMOL/L (21-32) Anion Gap 11 mmol/L (5-15) Blood Urea Nitrogen 7 mg/dL (7-18) Creatinine 1.0 MG/DL (0.55-1.30) Estimat Glomerular Filtration Rate > 60 mL/min (>60) Glucose Level 95 MG/DL (74-106) Calcium Level 7.0 MG/DL (8.5-10.1) L Pro-B-Type Natriuretic Peptide 54 pg/mL (0-125) HIV-1 RNA (PCR) log10 Value Pending HIV-1 RNA Ultraquantitative (PCR) Pending Microbiology Date/Time Source Procedure Growth Status 04/12/20 16:33 Blood Blood Culture - Preliminary NO GROWTH AFTER 24 HOURS Resulted 04/12/20 16:23 Blood Blood Culture - Preliminary NO GROWTH AFTER 24 HOURS Resulted Intake and Output 04/13/20 04/14/20 19:00 07:00 Intake Total 400 ml Output Total 2300 ml Balance -1900 ml Intake Oral 400 ml Output Urine Total 2300 ml # Voids 6 # Bowel Movements 1 1 Objective General Appearance: WD/WN, no apparent distress, alert EENT: PERRL/EOMI, normal ENT inspection Neck: non-tender, normal alignment, supple, normal inspection Cardiovascular: normal peripheral pulses, normal rate, regular rhythm, no gallop/murmur, no JVD Respiratory/Chest: chest wall non-tender, lungs clear, normal breath sounds, no respiratory distress, no accessory muscle use Abdomen: normal bowel sounds, non tender, soft, no organomegaly, no mass Extremities: normal range of motion, non-tender 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 Nikos Fisher MD Apr 14, 2020 18:11
[2020-04-14 20:00] VITALS: BP 141/85
[2020-04-15] VITALS: BP 127/78
[2020-04-15 04:00] VITALS: BP 130/75
--- NOTE | 2020-04-15 06:50 | General Progress Note ---
Assessment/Plan Status: not improved Assessment/Plan: 1. Pedal edema, most likely secondary to fluid overload. 2. hypertension. 3. Congestive heart failure. 4. Anemia. 5. Generalized weakness. 6. Chronic lower back pain. 7. Alcohol abuse. 8. Homelessness. 9. Lower abdominal discomfort. 10. gallstones stress test done>>> [facility] cardiology repeat labs GI procedures on hold Subjective ROS Limited/Unobtainable: Yes Allergies: Coded Allergies: No Known Allergies (Unverified , 02/07/19) Subjective no abd pain over night Objective Last 24 Hour Vital Signs Date Time Temp Pulse Resp B/P (MAP) Pulse Ox O2 Delivery O2 Flow Rate FiO2 04/15/20 04:00 98.5 69 17 130/75 (93) 98 04/15/20 04:00 70 04/15/20 00:00 98.8 72 17 127/78 (94) 97 04/15/20 00:00 69 04/14/20 21:18 62 18 98 Room Air 21 04/14/20 21:17 62 18 98 Room Air 21 04/14/20 21:00 Room Air 04/14/20 20:00 69 04/14/20 20:00 98.2 70 18 141/85 (103) 99 04/14/20 16:00 98.1 72 18 135/84 (101) 98 04/14/20 16:00 68 04/14/20 12:00 98.8 91 18 126/85 (99) 97 04/14/20 12:00 82 04/14/20 09:59 87 20 97 Room Air 04/14/20 09:58 86 20 97 Room Air 21 04/14/20 09:00 Room Air 04/14/20 08:00 67 04/14/20 08:00 97.6 66 20 102/69 (80) 98 Intake and Output 04/14/20 04/15/20 19:00 07:00 Intake Total 360 ml Output Total 1200 ml 450 ml Balance -840 ml -450 ml Intake Oral 360 ml Output Urine Total 1200 ml 450 ml # Voids 7 1 # Bowel Movements 1 1 Laboratory Tests 04/14/20 07:30: White Blood Count 6.1, Red Blood Count 4.94, Hemoglobin 12.8L, Hematocrit 40.4L , Mean Corpuscular Volume 82, Mean Corpuscular Hemoglobin 26.0L, Mean Corpuscular Hemoglobin Concent 31.8L, Red Cell Distribution Width 19.9H, Platelet Count 124L, Mean Platelet Volume 6.8, Neutrophils (%) (Auto) 53.9, Lymphocytes (%) (Auto) 28.7, Monocytes (%) (Auto) 8.8, Eosinophils (%) (Auto) 8.0H, Basophils (%) (Auto) 0.7, Sodium Level 144, Potassium Level 3.4L, Chloride Level 106, Carbon Dioxide Level 28, Anion Gap 11, Blood Urea Nitrogen 7 , Creatinine 1.0, Estimat Glomerular Filtration Rate > 60, Glucose Level 95, Calcium Level 7.0L, Pro-B-Type Natriuretic Peptide 54 04/14/20 16:05: HIV-1 RNA (PCR) log10 Value [Pending], HIV-1 RNA Ultraquantitative (PCR) [ Pending] Height (Feet): 5 Height (Inches): 9.00 Weight (Pounds): 170 General Appearance: no apparent distress EENT: TMs normal Neck: supple Cardiovascular: normal rate Respiratory/Chest: decreased breath sounds Abdomen: normal bowel sounds, non tender, soft Extremities: non-tender Flako Medina MD Apr 15, 2020 06:50
[2020-04-15 07:28] LABS: BASOPHILS % (AUTO) 0.8 % (0.0-2.0); EOSINOPHILS % (AUTO) 7.7 % (0.0-3.0); HEMATOCRIT 40.3 % (42.0-52.0); HEMOGLOBIN 12.7 G/DL (14.2-18.0); LYMPHOCYTES % (AUTO) 33.8 % (20.0-45.0); MEAN CORPUSCULAR VOLUME 81 FL (80-99); MONOCYTES % (AUTO) 8.8 % (1.0-10.0); PLATELET COUNT 117 K/UL (150-450); RED BLOOD COUNT 4.95 M/UL (4.70-6.10); RED CELL DISTRIBUTION WIDTH 18.1 % (11.6-14.8); WHITE BLOOD COUNT 5.3 K/UL (4.8-10.8)
[2020-04-15 07:46] LABS: ANION GAP 6 mmol/L (5-15); BLOOD UREA NITROGEN 6 mg/dL (7-18); CALCIUM 9.3 MG/DL (8.5-10.1); CARBON DIOXIDE 29 MMOL/L (21-32); CHLORIDE 106 MMOL/L (98-107); POTASSIUM 4.4 MMOL/L (3.5-5.1); SODIUM 141 MMOL/L (136-145)
[2020-04-15 08:00] VITALS: BP 118/72
[2020-04-15] MEDS: Pantoprazole Inj IV SCH (08:09)
[2020-04-15] MEDS: Heparin 5000 units/ml inj SUBQ SCH ×2 (08:09→21:00)
--- NOTE | 2020-04-15 09:25 | Cardiac Electrophysiology PN ---
Assessment/Plan Assessment/Plan 1. Nonsustained ventricular tachycardia. The etiology is not clear at this time. Urine toxic screen is negative. He was already ruled out for myocardial infarction. His echocardiography reveals EF of 65% Had Dobutamine nuclear stress test showed only small reversible defect Recommend medical therapy 2. Hypertension. The patient is on Lasix 40 mg p.o. daily. 3. Congestive heart failure. Echocardiogram showed normal left ventricular systolic function with EF of 65%. 4. Chronic back pain. 5. Abdominal pain. Further evaluation by Pain Management. 6. COPD. Subjective Subjective Remained in SR. Had Dobutamine Cardiolite showed only small reversible defect. Objective Last 24 Hour Vital Signs Date Time Temp Pulse Resp B/P (MAP) Pulse Ox O2 Delivery O2 Flow Rate FiO2 04/15/20 09:03 94 18 99 Room Air 21 04/15/20 09:00 95 18 99 Room Air 21 04/15/20 08:15 Room Air Room Air 04/15/20 04:00 98.5 69 17 130/75 (93) 98 04/15/20 04:00 70 04/15/20 00:00 98.8 72 17 127/78 (94) 97 04/15/20 00:00 69 04/14/20 21:18 62 18 98 Room Air 21 04/14/20 21:17 62 18 98 Room Air 21 04/14/20 21:00 Room Air 04/14/20 20:00 69 04/14/20 20:00 98.2 70 18 141/85 (103) 99 04/14/20 16:00 98.1 72 18 135/84 (101) 98 04/14/20 16:00 68 04/14/20 12:00 98.8 91 18 126/85 (99) 97 04/14/20 12:00 82 04/14/20 09:59 87 20 97 Room Air 21 04/14/20 09:58 86 20 97 Room Air 21 Intake and Output 04/14/20 04/15/20 19:00 07:00 Intake Total 360 ml Output Total 1200 ml 450 ml Balance -840 ml -450 ml Intake Oral 360 ml Output Urine Total 1200 ml 450 ml # Voids 7 1 # Bowel Movements 1 1 Laboratory Tests Test 04/14/20 16:05 04/15/20 05:39 HIV-1 RNA (PCR) log10 Value Pending HIV-1 RNA Ultraquantitative (PCR) Pending White Blood Count 5.3 K/UL (4.8-10.8) Red Blood Count 4.95 M/UL (4.70-6.10) Hemoglobin 12.7 G/DL (14.2-18.0) L Hematocrit 40.3 % (42.0-52.0) L Mean Corpuscular Volume 81 FL (80-99) Mean Corpuscular Hemoglobin 25.6 PG (27.0-31.0) L Mean Corpuscular Hemoglobin Concent 31.4 G/DL (32.0-36.0) L Red Cell Distribution Width 18.1 % (11.6-14.8) H Platelet Count 117 K/UL (150-450) L Mean Platelet Volume 7.0 FL (6.5-10.1) Neutrophils (%) (Auto) 49.0 % (45.0-75.0) Lymphocytes (%) (Auto) 33.8 % (20.0-45.0) Monocytes (%) (Auto) 8.8 % (1.0-10.0) Eosinophils (%) (Auto) 7.7 % (0.0-3.0) H Basophils (%) (Auto) 0.8 % (0.0-2.0) Sodium Level 141 MMOL/L (136-145) Potassium Level 4.4 MMOL/L (3.5-5.1) Chloride Level 106 MMOL/L (98-107) Carbon Dioxide Level 29 MMOL/L (21-32) Anion Gap 6 mmol/L (5-15) Blood Urea Nitrogen 6 mg/dL (7-18) L Creatinine 1.0 MG/DL (0.55-1.30) Estimat Glomerular Filtration Rate > 60 mL/min (>60) Glucose Level 93 MG/DL (74-106) Calcium Level 9.3 MG/DL (8.5-10.1) # Microbiology Date/Time Source Procedure Growth Status 04/12/20 16:33 Blood Blood Culture - Preliminary NO GROWTH AFTER 48 HOURS Resulted 04/12/20 16:23 Blood Blood Culture - Preliminary NO GROWTH AFTER 48 HOURS Resulted Objective NECK: No JVD. LUNGS: Clear. CARDIOVASCULAR: Regular S1 and S2 with no gallop or murmur. ABDOMEN: Soft. EXTREMITIES: 1+ pitting edema. Frankie Piña MD Apr 15, 2020 09:25
[2020-04-15] MEDS ORDERED: DOBUTamine 250mg/250ml Premix IV ONE (09:41)
[2020-04-15 12:00] VITALS: BP 117/72
--- NOTE | 2020-04-15 12:56 | Pulmonology Progress Note ---
Subjective ROS Limited/Unobtainable: Yes Interval Events: less abdominal pain Constitutional: Reports: no symptoms HEENT: Repors: no symptoms Allergies: Coded Allergies: No Known Allergies (Unverified , 02/07/19) Objective Last 24 Hour Vital Signs Date Time Temp Pulse Resp B/P (MAP) Pulse Ox O2 Delivery O2 Flow Rate FiO2 04/15/20 12:00 82 04/15/20 12:00 97.9 79 20 117/72 (87) 100 04/15/20 09:03 94 18 99 Room Air 21 04/15/20 09:00 95 18 99 Room Air 21 04/15/20 08:15 Room Air Room Air 04/15/20 08:00 97.7 79 20 118/72 (87) 99 04/15/20 08:00 80 04/15/20 04:00 98.5 69 17 130/75 (93) 98 04/15/20 04:00 70 04/15/20 00:00 98.8 72 17 127/78 (94) 97 04/15/20 00:00 69 04/14/20 21:18 62 18 98 Room Air 21 04/14/20 21:17 62 18 98 Room Air 21 04/14/20 21:00 Room Air 04/14/20 20:00 69 04/14/20 20:00 98.2 70 18 141/85 (103) 99 04/14/20 16:00 98.1 72 18 135/84 (101) 98 04/14/20 16:00 68 Intake and Output 04/14/20 04/15/20 19:00 07:00 Intake Total 360 ml Output Total 1200 ml 450 ml Balance -840 ml -450 ml Intake Oral 360 ml Output Urine Total 1200 ml 450 ml # Voids 7 1 # Bowel Movements 1 1 General Appearance: WD/WN HEENT: normocephalic Respiratory: chest wall non-tender, normal breath sounds Cardiovascular: normal peripheral pulses, normal rate Abdomen: soft, non tender, non distended, no mass Genitourinary: normal external genitalia Extremities: no cyanosis Skin: no ulcers Lymphatic: no neck adenopathy Microbiology Date/Time Source Procedure Growth Status 04/12/20 16:33 Blood Blood Culture - Preliminary NO GROWTH AFTER 48 HOURS Resulted 04/12/20 16:23 Blood Blood Culture - Preliminary NO GROWTH AFTER 48 HOURS Resulted Laboratory Tests 04/14/20 16:05: HIV-1 RNA (PCR) log10 Value [Pending], HIV-1 RNA Ultraquantitative (PCR) [ Pending] 04/15/20 05:39: White Blood Count 5.3, Red Blood Count 4.95, Hemoglobin 12.7L, Hematocrit 40.3L , Mean Corpuscular Volume 81, Mean Corpuscular Hemoglobin 25.6L, Mean Corpuscular Hemoglobin Concent 31.4L, Red Cell Distribution Width 18.1H, Platelet Count 117L, Mean Platelet Volume 7.0, Neutrophils (%) (Auto) 49.0, Lymphocytes (%) (Auto) 33.8, Monocytes (%) (Auto) 8.8, Eosinophils (%) (Auto) 7.7H, Basophils (%) (Auto) 0.8, Sodium Level 141, Potassium Level 4.4, Chloride Level 106, Carbon Dioxide Level 29, Anion Gap 6, Blood Urea Nitrogen 6L, Creatinine 1.0, Estimat Glomerular Filtration Rate > 60, Glucose Level 93, Calcium Level 9.3# Current Medications Medications (Trade) Dose Ordered Sig/Tyrell Route PRN Reason Start Time Stop Time Status Last Admin Dose Admin Acetaminophen (Tylenol) 650 mg Q4H PRN ORAL fever 04/11/20 00:15 05/11/20 00:14 04/15/20 08:08 Budesonide/ Formoterol Fumarate (Symbicort 160/ 4.5) 1 puff TWICE A DAY INH 04/11/20 18:00 07/10/20 17:59 04/15/20 09:01 Dextrose (Dextrose 50%) 25 ml Q30M PRN IV Hypoglycemia 04/11/20 00:15 07/10/20 00:14 Dextrose (Dextrose 50%) 50 ml Q30M PRN IV Hypoglycemia 04/11/20 00:15 07/10/20 00:14 Diphenhydramine HCl (Benadryl) 25 mg Q6H PRN ORAL Itching/Pruritis 04/11/20 00:15 05/11/20 00:14 Furosemide (Lasix) 40 mg DAILY ORAL 04/14/20 09:00 05/12/20 08:59 04/15/20 08:09 Heparin Sodium (Porcine) (Heparin 5000 units/ml) 5,000 units EVERY 12 HOURS SUBQ 04/11/20 09:00 05/26/20 08:59 04/13/20 09:07 Metoclopramide HCl (Reglan) 10 mg Q6H PRN IVP servere nauasea 04/11/20 00:15 05/11/20 00:14 Nitroglycerin (Ntg) 0.4 mg Q5M X 3 DOSES PRN SL Prn Chest Pain 04/11/20 00:15 05/11/20 00:14 04/13/20 02:01 Ondansetron HCl (Zofran) 4 mg Q6H PRN IVP Nausea & Vomiting 04/11/20 00:15 05/11/20 00:14 04/11/20 05:43 Pantoprazole (Protonix) 40 mg DAILY IV 04/11/20 09:00 05/11/20 08:59 04/15/20 08:09 Polyethylene Glycol (Miralax) 17 gm HSPRN PRN ORAL Constipation 04/11/20 00:15 05/11/20 00:14 04/13/20 20:35 Temazepam (Restoril) 15 mg HSPRN PRN ORAL Insomnia 04/11/20 00:15 04/18/20 00:14 Assessment/Plan Problems: (1) Intractable abdominal pain (2) CHF (congestive heart failure) (3) Generalized weakness (4) Hypertension (5) Chronic back pain (6) ETOH abuse (7) Homelessness Assessment/Plan stress study done: FIXED PHOTOPENIC AREA IN THE INFERIOR WALL OF THE MYOCARDIUM ON BOTH STRESS AND RESTING IMAGES COMPATIBLE WITH OLD FIXED INFARCT. HOWEVER THERE IS A SMALLER PHOTOPENIC AREA AT THE INFERIOR APEX WHICH SHOWS IMPROVEMENT ON RESTING IMAGES COMPATIBLE WITH A SMALL AREA OF REVERSIBLE ISCHEMIA. awaiting Physical therapy evaluation and Neurology consult slightly better symptomatic treatment had low grade fever peterson cultures and ID evaluation\ check echocardiogram, EF 65% meds reviewed dvt prophylaxis pt/ot evaluation Argelia Brooks MD Apr 15, 2020 12:56
[2020-04-15 16:00] VITALS: BP 123/80
--- NOTE | 2020-04-15 16:11 | Infectious Diseases Prog Note ---
Assessment/Plan Assessment: COVID19 neg x1 (04/10 rapid COVID PCR neg) Nausea, generalized weakness- ?opioid withdrawal -Abd US: Cholelithiasis. Negative for dilated ducts. No other acute or significant abnormality. Note, however, inability to visualize the abdominal aorta and pancreas Low grade fever- SP- no obvious infection No leukocytosis -BCx NTD -u/a neg UDS neg HIV ab screen, RPR, Gc/CL neg HTN Asthma chronic back pain anxiety disorder homelessness Plan: -Continue to monitor off abx unless ongoing fever, leukocytosis and/or HD unstable -f/u cx -Monitor CBC/CMP, temperatures -f/u Bcx x2 -f/u HIV VL Thank you for consulting [facility]. Will continue to follow along with you. Discussed with RN. Subjective Allergies: Coded Allergies: No Known Allergies (Unverified , 02/07/19) afebrile >72hrs bcx NTD at RA no lekocytosis Objective Last 24 Hour Vital Signs Date Time Temp Pulse Resp B/P (MAP) Pulse Ox O2 Delivery O2 Flow Rate FiO2 04/15/20 12:00 82 04/15/20 12:00 97.9 79 20 117/72 (87) 100 04/15/20 09:03 94 18 99 Room Air 21 04/15/20 09:00 95 18 99 Room Air 21 04/15/20 08:15 Room Air Room Air 04/15/20 08:00 97.7 79 20 118/72 (87) 99 04/15/20 08:00 80 04/15/20 04:00 98.5 69 17 130/75 (93) 98 04/15/20 04:00 70 04/15/20 00:00 98.8 72 17 127/78 (94) 97 04/15/20 00:00 69 04/14/20 21:18 62 18 98 Room Air 21 04/14/20 21:17 62 18 98 Room Air 21 04/14/20 21:00 Room Air 04/14/20 20:00 69 04/14/20 20:00 98.2 70 18 141/85 (103) 99 Height (Feet): 5 Height (Inches): 9.00 Weight (Pounds): 170 Skin: no ulcers General Appearance: WD/WN, no apparent distress, alert EENT: PERRL/EOMI, normal ENT inspection Neck: non-tender, normal alignment, supple, normal inspection Cardiovascular: normal rate, regular rhythm Respiratory/Chest: chest wall non-tender, lungs clear, normal breath sounds, no respiratory distress, no accessory muscle use Abdomen: normal bowel sounds, non tender, soft, no organomegaly, no mass Extremities: normal range of motion, non-tender Microbiology Date/Time Source Procedure Growth Status 04/12/20 16:33 Blood Blood Culture - Preliminary NO GROWTH AFTER 48 HOURS Resulted 04/12/20 16:23 Blood Blood Culture - Preliminary NO GROWTH AFTER 48 HOURS Resulted Laboratory Tests Test 04/15/20 05:39 White Blood Count 5.3 K/UL (4.8-10.8) Red Blood Count 4.95 M/UL (4.70-6.10) Hemoglobin 12.7 G/DL (14.2-18.0) L Hematocrit 40.3 % (42.0-52.0) L Mean Corpuscular Volume 81 FL (80-99) Mean Corpuscular Hemoglobin 25.6 PG (27.0-31.0) L Mean Corpuscular Hemoglobin Concent 31.4 G/DL (32.0-36.0) L Red Cell Distribution Width 18.1 % (11.6-14.8) H Platelet Count 117 K/UL (150-450) L Mean Platelet Volume 7.0 FL (6.5-10.1) Neutrophils (%) (Auto) 49.0 % (45.0-75.0) Lymphocytes (%) (Auto) 33.8 % (20.0-45.0) Monocytes (%) (Auto) 8.8 % (1.0-10.0) Eosinophils (%) (Auto) 7.7 % (0.0-3.0) H Basophils (%) (Auto) 0.8 % (0.0-2.0) Sodium Level 141 MMOL/L (136-145) Potassium Level 4.4 MMOL/L (3.5-5.1) Chloride Level 106 MMOL/L (98-107) Carbon Dioxide Level 29 MMOL/L (21-32) Anion Gap 6 mmol/L (5-15) Blood Urea Nitrogen 6 mg/dL (7-18) L Creatinine 1.0 MG/DL (0.55-1.30) Estimat Glomerular Filtration Rate > 60 mL/min (>60) Glucose Level 93 MG/DL (74-106) Calcium Level 9.3 MG/DL (8.5-10.1) # Current Medications Medications (Trade) Dose Ordered Sig/Tyrell Route PRN Reason Start Time Stop Time Status Last Admin Dose Admin Acetaminophen (Tylenol) 650 mg Q4H PRN ORAL fever 04/11/20 00:15 05/11/20 00:14 04/15/20 08:08 Budesonide/ Formoterol Fumarate (Symbicort 160/ 4.5) 1 puff TWICE A DAY INH 04/11/20 18:00 07/10/20 17:59 04/15/20 09:01 Dextrose (Dextrose 50%) 25 ml Q30M PRN IV Hypoglycemia 04/11/20 00:15 07/10/20 00:14 Dextrose (Dextrose 50%) 50 ml Q30M PRN IV Hypoglycemia 04/11/20 00:15 07/10/20 00:14 Diphenhydramine HCl (Benadryl) 25 mg Q6H PRN ORAL Itching/Pruritis 04/11/20 00:15 05/11/20 00:14 Furosemide (Lasix) 40 mg DAILY ORAL 04/14/20 09:00 05/12/20 08:59 04/15/20 08:09 Heparin Sodium (Porcine) (Heparin 5000 units/ml) 5,000 units EVERY 12 HOURS SUBQ 04/11/20 09:00 05/26/20 08:59 04/13/20 09:07 Metoclopramide HCl (Reglan) 10 mg Q6H PRN IVP servere nauasea 04/11/20 00:15 05/11/20 00:14 Nitroglycerin (Ntg) 0.4 mg Q5M X 3 DOSES PRN SL Prn Chest Pain 04/11/20 00:15 05/11/20 00:14 04/13/20 02:01 Ondansetron HCl (Zofran) 4 mg Q6H PRN IVP Nausea & Vomiting 04/11/20 00:15 05/11/20 00:14 04/11/20 05:43 Pantoprazole (Protonix) 40 mg DAILY IV 04/11/20 09:00 05/11/20 08:59 04/15/20 08:09 Polyethylene Glycol (Miralax) 17 gm HSPRN PRN ORAL Constipation 04/11/20 00:15 05/11/20 00:14 04/13/20 20:35 Temazepam (Restoril) 15 mg HSPRN PRN ORAL Insomnia 04/11/20 00:15 04/18/20 00:14 Brenda Sosa M.D. Apr 15, 2020 16:11
--- NOTE | 2020-04-15 18:00 | Internal Med Progress Note ---
Subjective Date of Service: Apr 15, 2020 Physician Name Fisher,Nikos Attending Physician Yuriy Kendrick MD Current Medications Medications (Trade) Dose Ordered Sig/Tyrell Route PRN Reason Start Time Stop Time Status Last Admin Dose Admin Acetaminophen (Tylenol) 650 mg Q4H PRN ORAL fever 04/11/20 00:15 05/11/20 00:14 04/15/20 08:08 Budesonide/ Formoterol Fumarate (Symbicort 160/ 4.5) 1 puff TWICE A DAY INH 04/11/20 18:00 07/10/20 17:59 04/15/20 09:01 Dextrose (Dextrose 50%) 25 ml Q30M PRN IV Hypoglycemia 04/11/20 00:15 07/10/20 00:14 Dextrose (Dextrose 50%) 50 ml Q30M PRN IV Hypoglycemia 04/11/20 00:15 07/10/20 00:14 Diphenhydramine HCl (Benadryl) 25 mg Q6H PRN ORAL Itching/Pruritis 04/11/20 00:15 05/11/20 00:14 Furosemide (Lasix) 40 mg DAILY ORAL 04/14/20 09:00 05/12/20 08:59 04/15/20 08:09 Heparin Sodium (Porcine) (Heparin 5000 units/ml) 5,000 units EVERY 12 HOURS SUBQ 04/11/20 09:00 05/26/20 08:59 04/13/20 09:07 Metoclopramide HCl (Reglan) 10 mg Q6H PRN IVP servere nauasea 04/11/20 00:15 05/11/20 00:14 Nitroglycerin (Ntg) 0.4 mg Q5M X 3 DOSES PRN SL Prn Chest Pain 04/11/20 00:15 05/11/20 00:14 04/13/20 02:01 Ondansetron HCl (Zofran) 4 mg Q6H PRN IVP Nausea & Vomiting 04/11/20 00:15 05/11/20 00:14 04/11/20 05:43 Pantoprazole (Protonix) 40 mg DAILY IV 04/11/20 09:00 05/11/20 08:59 04/15/20 08:09 Polyethylene Glycol (Miralax) 17 gm HSPRN PRN ORAL Constipation 04/11/20 00:15 05/11/20 00:14 04/13/20 20:35 Temazepam (Restoril) 15 mg HSPRN PRN ORAL Insomnia 04/11/20 00:15 04/18/20 00:14 Allergies: Coded Allergies: No Known Allergies (Unverified , 02/07/19) ROS Limited/Unobtainable: No Constitutional: Reports: no symptoms HEENT: Reports: no symptoms Cardiovascular: Reports: no symptoms Respiratory: Reports: no symptoms Gastrointestinal/Abdominal: Reports: no symptoms Genitourinary: Reports: no symptoms Neurologic/Psychiatric: Reports: no symptoms Subjective 69 YO M with history of chronic lumbar pain and opiate dependence. Now admitted for generalized weakness and diarrhea. Cover for Int Med-Dr Kendrick Objective Last Vital Signs Date Time Temp Pulse Resp B/P (MAP) Pulse Ox O2 Delivery O2 Flow Rate FiO2 04/15/20 16:00 98.2 70 20 123/80 (94) 100 04/15/20 09:03 Room Air 21 Laboratory Tests Test 04/15/20 05:39 White Blood Count 5.3 K/UL (4.8-10.8) Red Blood Count 4.95 M/UL (4.70-6.10) Hemoglobin 12.7 G/DL (14.2-18.0) L Hematocrit 40.3 % (42.0-52.0) L Mean Corpuscular Volume 81 FL (80-99) Mean Corpuscular Hemoglobin 25.6 PG (27.0-31.0) L Mean Corpuscular Hemoglobin Concent 31.4 G/DL (32.0-36.0) L Red Cell Distribution Width 18.1 % (11.6-14.8) H Platelet Count 117 K/UL (150-450) L Mean Platelet Volume 7.0 FL (6.5-10.1) Neutrophils (%) (Auto) 49.0 % (45.0-75.0) Lymphocytes (%) (Auto) 33.8 % (20.0-45.0) Monocytes (%) (Auto) 8.8 % (1.0-10.0) Eosinophils (%) (Auto) 7.7 % (0.0-3.0) H Basophils (%) (Auto) 0.8 % (0.0-2.0) Sodium Level 141 MMOL/L (136-145) Potassium Level 4.4 MMOL/L (3.5-5.1) Chloride Level 106 MMOL/L (98-107) Carbon Dioxide Level 29 MMOL/L (21-32) Anion Gap 6 mmol/L (5-15) Blood Urea Nitrogen 6 mg/dL (7-18) L Creatinine 1.0 MG/DL (0.55-1.30) Estimat Glomerular Filtration Rate > 60 mL/min (>60) Glucose Level 93 MG/DL (74-106) Calcium Level 9.3 MG/DL (8.5-10.1) # Intake and Output 04/14/20 04/15/20 19:00 07:00 Intake Total 360 ml Output Total 1200 ml 450 ml Balance -840 ml -450 ml Intake Oral 360 ml Output Urine Total 1200 ml 450 ml # Voids 7 1 # Bowel Movements 1 1 Objective General Appearance: WD/WN, no apparent distress, alert EENT: PERRL/EOMI, normal ENT inspection Neck: non-tender, normal alignment, supple, normal inspection Cardiovascular: normal peripheral pulses, normal rate, regular rhythm, no gallop/murmur, no JVD Respiratory/Chest: chest wall non-tender, lungs clear, normal breath sounds, no respiratory distress, no accessory muscle use Abdomen: normal bowel sounds, non tender, soft, no organomegaly, no mass Extremities: normal range of motion, non-tender 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 Nikos Fisher MD Apr 15, 2020 18:00
[2020-04-15 20:00] VITALS: BP 145/77
[2020-04-16] VITALS: BP 149/89
[2020-04-16 04:00] VITALS: BP 133/55
[2020-04-16 07:22] LABS: BASOPHILS % (AUTO) 0.7 % (0.0-2.0); EOSINOPHILS % (AUTO) 5.7 % (0.0-3.0); HEMATOCRIT 39.7 % (42.0-52.0); HEMOGLOBIN 12.4 G/DL (14.2-18.0); LYMPHOCYTES % (AUTO) 27.1 % (20.0-45.0); MEAN CORPUSCULAR VOLUME 82 FL (80-99); MONOCYTES % (AUTO) 9.3 % (1.0-10.0); NEUTROPHILS % (AUTO) 57.2 % (45.0-75.0); PLATELET COUNT 110 K/UL (150-450); RED BLOOD COUNT 4.87 M/UL (4.70-6.10); RED CELL DISTRIBUTION WIDTH 18.1 % (11.6-14.8); WHITE BLOOD COUNT 5.1 K/UL (4.8-10.8)
[2020-04-16] MEDS: Heparin 5000 units/ml inj SUBQ SCH ×2 (07:37→21:00)
[2020-04-16 07:39] LABS: ANION GAP 9 mmol/L (5-15); BLOOD UREA NITROGEN 11 mg/dL (7-18); CALCIUM 8.5 MG/DL (8.5-10.1); CARBON DIOXIDE 27 MMOL/L (21-32); CHLORIDE 108 MMOL/L (98-107); CREATININE 1.1 MG/DL (0.55-1.30); POTASSIUM 4.5 MMOL/L (3.5-5.1); SODIUM 144 MMOL/L (136-145)
[2020-04-16 08:00] VITALS: BP 153/83
--- NOTE | 2020-04-16 08:10 | General Progress Note ---
Assessment/Plan Status: not improved Assessment/Plan: 1. Pedal edema, most likely secondary to fluid overload. 2. hypertension. 3. Congestive heart failure. 4. Anemia. 5. Generalized weakness. 6. Chronic lower back pain. 7. Alcohol abuse. 8. Homelessness. 9. Lower abdominal discomfort. 10. gallstones stress test done>>> [facility] cardiology repeat labs GI procedures on hold Subjective ROS Limited/Unobtainable: Yes Allergies: Coded Allergies: No Known Allergies (Unverified , 02/07/19) Subjective no abd pain over night Objective Last 24 Hour Vital Signs Date Time Temp Pulse Resp B/P (MAP) Pulse Ox O2 Delivery O2 Flow Rate FiO2 04/16/20 04:00 98.2 78 16 133/55 (81) 92 04/16/20 04:00 63 04/16/20 00:00 98.1 68 17 149/89 (109) 100 04/16/20 00:00 64 04/15/20 21:00 Room Air Room Air 04/15/20 20:15 Room Air 21 04/15/20 20:15 Room Air 21 04/15/20 20:00 69 04/15/20 20:00 99.5 80 16 145/77 (99) 96 04/15/20 18:00 68 04/15/20 16:00 98.2 70 20 123/80 (94) 100 04/15/20 12:00 82 04/15/20 12:00 97.9 79 20 117/72 (87) 100 04/15/20 09:03 94 18 99 Room Air 21 04/15/20 09:00 95 18 99 Room Air 21 04/15/20 08:15 Room Air Room Air Intake and Output 04/15/20 04/16/20 19:00 07:00 Intake Total 540 ml Output Total 1800 ml 800 ml Balance -1260 ml -800 ml Intake Oral 540 ml Output Urine Total 1800 ml 800 ml # Voids 7 4 # Bowel Movements 2 1 Laboratory Tests 04/16/20 05:31: White Blood Count 5.1, Red Blood Count 4.87, Hemoglobin 12.4L, Hematocrit 39.7L, Mean Corpuscular Volume 82, Mean Corpuscular Hemoglobin 25.4L, Mean Corpuscular Hemoglobin Concent 31.1L, Red Cell Distribution Width 18.1H, Platelet Count 110L , Mean Platelet Volume 6.1L, Neutrophils (%) (Auto) 57.2, Lymphocytes (%) (Auto) 27.1, Monocytes (%) (Auto) 9.3, Eosinophils (%) (Auto) 5.7H, Basophils (%) (Auto) 0.7, Sodium Level 144, Potassium Level 4.5, Chloride Level 108H, Carbon Dioxide Level 27, Anion Gap 9, Blood Urea Nitrogen 11, Creatinine 1.1, Estimat Glomerular Filtration Rate > 60, Glucose Level 108H, Calcium Level 8.5, Carcinoembryonic Antigen [Pending] Height (Feet): 5 Height (Inches): 9.00 Weight (Pounds): 170 General Appearance: no apparent distress EENT: normal ENT inspection Neck: supple Cardiovascular: normal rate Respiratory/Chest: decreased breath sounds Abdomen: normal bowel sounds, non tender, soft Extremities: non-tender Flako Medina MD Apr 16, 2020 08:10
[2020-04-16] MEDS: Pantoprazole Inj IV SCH (09:21)
--- NOTE | 2020-04-16 11:42 | Internal Med Progress Note ---
Subjective Date of Service: Apr 16, 2020 Physician Name Fisher,Nikos Attending Physician Yuriy Kendrick MD Current Medications Medications (Trade) Dose Ordered Sig/Tyrell Route PRN Reason Start Time Stop Time Status Last Admin Dose Admin Acetaminophen (Tylenol) 650 mg Q4H PRN ORAL fever 04/11/20 00:15 05/11/20 00:14 04/16/20 09:21 Budesonide/ Formoterol Fumarate (Symbicort 160/ 4.5) 1 puff TWICE A DAY INH 04/11/20 18:00 07/10/20 17:59 04/16/20 09:21 Dextrose (Dextrose 50%) 25 ml Q30M PRN IV Hypoglycemia 04/11/20 00:15 07/10/20 00:14 Dextrose (Dextrose 50%) 50 ml Q30M PRN IV Hypoglycemia 04/11/20 00:15 07/10/20 00:14 Diphenhydramine HCl (Benadryl) 25 mg Q6H PRN ORAL Itching/Pruritis 04/11/20 00:15 05/11/20 00:14 Furosemide (Lasix) 40 mg DAILY ORAL 04/14/20 09:00 05/12/20 08:59 04/16/20 09:21 Heparin Sodium (Porcine) (Heparin 5000 units/ml) 5,000 units EVERY 12 HOURS SUBQ 04/11/20 09:00 05/26/20 08:59 04/13/20 09:07 Metoclopramide HCl (Reglan) 10 mg Q6H PRN IVP servere nauasea 04/11/20 00:15 05/11/20 00:14 Nitroglycerin (Ntg) 0.4 mg Q5M X 3 DOSES PRN SL Prn Chest Pain 04/11/20 00:15 05/11/20 00:14 04/13/20 02:01 Ondansetron HCl (Zofran) 4 mg Q6H PRN IVP Nausea & Vomiting 04/11/20 00:15 05/11/20 00:14 04/11/20 05:43 Pantoprazole (Protonix) 40 mg DAILY IV 04/11/20 09:00 05/11/20 08:59 04/16/20 09:21 Polyethylene Glycol (Miralax) 17 gm HSPRN PRN ORAL Constipation 04/11/20 00:15 05/11/20 00:14 04/13/20 20:35 Temazepam (Restoril) 15 mg HSPRN PRN ORAL Insomnia 04/11/20 00:15 04/18/20 00:14 Allergies: Coded Allergies: No Known Allergies (Unverified , 02/07/19) ROS Limited/Unobtainable: No Constitutional: Reports: no symptoms HEENT: Reports: no symptoms Cardiovascular: Reports: no symptoms Respiratory: Reports: no symptoms Gastrointestinal/Abdominal: Reports: no symptoms Genitourinary: Reports: no symptoms Neurologic/Psychiatric: Reports: no symptoms Subjective 69 YO M with history of chronic lumbar pain and opiate dependence. Now admitted for generalized weakness and diarrhea. Cover for Int Med-Dr Kendrick Objective Last Vital Signs Date Time Temp Pulse Resp B/P (MAP) Pulse Ox O2 Delivery O2 Flow Rate FiO2 04/16/20 09:51 97.7 04/16/20 09:21 Room Air 21 04/16/20 08:00 76 04/16/20 08:00 20 153/83 (106) 100 Laboratory Tests Test 04/16/20 05:31 White Blood Count 5.1 K/UL (4.8-10.8) Red Blood Count 4.87 M/UL (4.70-6.10) Hemoglobin 12.4 G/DL (14.2-18.0) L Hematocrit 39.7 % (42.0-52.0) L Mean Corpuscular Volume 82 FL (80-99) Mean Corpuscular Hemoglobin 25.4 PG (27.0-31.0) L Mean Corpuscular Hemoglobin Concent 31.1 G/DL (32.0-36.0) L Red Cell Distribution Width 18.1 % (11.6-14.8) H Platelet Count 110 K/UL (150-450) L Mean Platelet Volume 6.1 FL (6.5-10.1) L Neutrophils (%) (Auto) 57.2 % (45.0-75.0) Lymphocytes (%) (Auto) 27.1 % (20.0-45.0) Monocytes (%) (Auto) 9.3 % (1.0-10.0) Eosinophils (%) (Auto) 5.7 % (0.0-3.0) H Basophils (%) (Auto) 0.7 % (0.0-2.0) Sodium Level 144 MMOL/L (136-145) Potassium Level 4.5 MMOL/L (3.5-5.1) Chloride Level 108 MMOL/L (98-107) H Carbon Dioxide Level 27 MMOL/L (21-32) Anion Gap 9 mmol/L (5-15) Blood Urea Nitrogen 11 mg/dL (7-18) Creatinine 1.1 MG/DL (0.55-1.30) Estimat Glomerular Filtration Rate > 60 mL/min (>60) Glucose Level 108 MG/DL (74-106) H Calcium Level 8.5 MG/DL (8.5-10.1) Carcinoembryonic Antigen Pending Intake and Output 04/15/20 04/16/20 19:00 07:00 Intake Total 540 ml Output Total 1800 ml 800 ml Balance -1260 ml -800 ml Intake Oral 540 ml Output Urine Total 1800 ml 800 ml # Voids 7 4 # Bowel Movements 2 1 Objective General Appearance: WD/WN, no apparent distress, alert EENT: PERRL/EOMI, normal ENT inspection Neck: non-tender, normal alignment, supple, normal inspection Cardiovascular: normal peripheral pulses, normal rate, regular rhythm, no gallop/murmur, no JVD Respiratory/Chest: chest wall non-tender, lungs clear, normal breath sounds, no respiratory distress, no accessory muscle use Abdomen: normal bowel sounds, non tender, soft, no organomegaly, no mass Extremities: normal range of motion, non-tender Neurologic: insert operator II-XII grossly normal, no motor/sensory deficits Skin: normal pigmentation, warm/dry Assessment/Plan Problem List: (1) HTN (hypertension) (2) Opiate dependence, continuous (3) Benzodiazepine dependence, continuous (4) CHF (congestive heart failure) Assessment & Plan: Continue lasix (5) Generalized weakness (6) Chronic back pain (7) Diarrhea Assessment & Plan: ?opiate withdrawal? Nikos Fisher MD Apr 16, 2020 11:42
[2020-04-16 12:00] VITALS: BP 133/87
--- NOTE | 2020-04-16 13:37 | Infectious Diseases Prog Note ---
Assessment/Plan Assessment: COVID19 neg x1 (04/10 rapid COVID PCR neg) Nausea, generalized weakness- ?opioid withdrawal -Abd US: Cholelithiasis. Negative for dilated ducts. No other acute or significant abnormality. Note, however, inability to visualize the abdominal aorta and pancreas Low grade fever- SP- no obvious infection No leukocytosis -BCx NTD -u/a neg UDS neg HIV ab screen, RPR, Gc/CL neg HTN Asthma chronic back pain anxiety disorder homelessness Plan: -Continue to monitor off abx unless ongoing fever, leukocytosis and/or HD unstable -f/u cx -Monitor CBC/CMP, temperatures -f/u Bcx x2 -f/u HIV VL Thank you for consulting [facility]. Will continue to follow along with you. Discussed with RN. Subjective Allergies: Coded Allergies: No Known Allergies (Unverified , 02/07/19) afebrile bcx NTD no leukocytosis off abx Objective Last 24 Hour Vital Signs Date Time Temp Pulse Resp B/P (MAP) Pulse Ox O2 Delivery O2 Flow Rate FiO2 04/16/20 12:00 71 04/16/20 12:00 99.0 73 20 133/87 (102) 100 04/16/20 09:51 97.7 04/16/20 09:21 Room Air 21 04/16/20 09:21 Room Air 21 04/16/20 09:00 Room Air Room Air 04/16/20 08:00 76 04/16/20 08:00 97.7 80 20 153/83 (106) 100 04/16/20 04:00 98.2 78 16 133/55 (81) 92 04/16/20 04:00 63 04/16/20 00:00 98.1 68 17 149/89 (109) 100 04/16/20 00:00 64 04/15/20 21:00 Room Air Room Air 04/15/20 20:15 Room Air 21 04/15/20 20:15 Room Air 21 04/15/20 20:00 69 04/15/20 20:00 99.5 80 16 145/77 (99) 96 04/15/20 18:00 68 04/15/20 16:00 98.2 70 20 123/80 (94) 100 Height (Feet): 5 Height (Inches): 9.00 Weight (Pounds): 170 General Appearance: WD/WN, no apparent distress, alert EENT: PERRL/EOMI, normal ENT inspection Neck: non-tender, normal alignment, supple, normal inspection Cardiovascular: normal rate, regular rhythm Respiratory/Chest: chest wall non-tender, lungs clear, normal breath sounds, no respiratory distress, no accessory muscle use Abdomen: normal bowel sounds, non tender, soft, no organomegaly, no mass Extremities: normal range of motion, non-tender Laboratory Tests Test 04/16/20 05:31 White Blood Count 5.1 K/UL (4.8-10.8) Red Blood Count 4.87 M/UL (4.70-6.10) Hemoglobin 12.4 G/DL (14.2-18.0) L Hematocrit 39.7 % (42.0-52.0) L Mean Corpuscular Volume 82 FL (80-99) Mean Corpuscular Hemoglobin 25.4 PG (27.0-31.0) L Mean Corpuscular Hemoglobin Concent 31.1 G/DL (32.0-36.0) L Red Cell Distribution Width 18.1 % (11.6-14.8) H Platelet Count 110 K/UL (150-450) L Mean Platelet Volume 6.1 FL (6.5-10.1) L Neutrophils (%) (Auto) 57.2 % (45.0-75.0) Lymphocytes (%) (Auto) 27.1 % (20.0-45.0) Monocytes (%) (Auto) 9.3 % (1.0-10.0) Eosinophils (%) (Auto) 5.7 % (0.0-3.0) H Basophils (%) (Auto) 0.7 % (0.0-2.0) Sodium Level 144 MMOL/L (136-145) Potassium Level 4.5 MMOL/L (3.5-5.1) Chloride Level 108 MMOL/L (98-107) H Carbon Dioxide Level 27 MMOL/L (21-32) Anion Gap 9 mmol/L (5-15) Blood Urea Nitrogen 11 mg/dL (7-18) Creatinine 1.1 MG/DL (0.55-1.30) Estimat Glomerular Filtration Rate > 60 mL/min (>60) Glucose Level 108 MG/DL (74-106) H Calcium Level 8.5 MG/DL (8.5-10.1) Carcinoembryonic Antigen Pending Current Medications Medications (Trade) Dose Ordered Sig/Tyrell Route PRN Reason Start Time Stop Time Status Last Admin Dose Admin Acetaminophen (Tylenol) 650 mg Q4H PRN ORAL fever 04/11/20 00:15 05/11/20 00:14 04/16/20 09:21 Budesonide/ Formoterol Fumarate (Symbicort 160/ 4.5) 1 puff TWICE A DAY INH 04/11/20 18:00 07/10/20 17:59 04/16/20 09:21 Dextrose (Dextrose 50%) 25 ml Q30M PRN IV Hypoglycemia 04/11/20 00:15 07/10/20 00:14 Dextrose (Dextrose 50%) 50 ml Q30M PRN IV Hypoglycemia 04/11/20 00:15 07/10/20 00:14 Diphenhydramine HCl (Benadryl) 25 mg Q6H PRN ORAL Itching/Pruritis 04/11/20 00:15 05/11/20 00:14 Furosemide (Lasix) 40 mg DAILY ORAL 04/14/20 09:00 05/12/20 08:59 04/16/20 09:21 Heparin Sodium (Porcine) (Heparin 5000 units/ml) 5,000 units EVERY 12 HOURS SUBQ 04/11/20 09:00 05/26/20 08:59 04/13/20 09:07 Metoclopramide HCl (Reglan) 10 mg Q6H PRN IVP servere nauasea 04/11/20 00:15 05/11/20 00:14 Nitroglycerin (Ntg) 0.4 mg Q5M X 3 DOSES PRN SL Prn Chest Pain 04/11/20 00:15 05/11/20 00:14 04/13/20 02:01 Ondansetron HCl (Zofran) 4 mg Q6H PRN IVP Nausea & Vomiting 04/11/20 00:15 05/11/20 00:14 04/11/20 05:43 Pantoprazole (Protonix) 40 mg DAILY IV 04/11/20 09:00 05/11/20 08:59 04/16/20 09:21 Polyethylene Glycol (Miralax) 17 gm HSPRN PRN ORAL Constipation 04/11/20 00:15 05/11/20 00:14 04/13/20 20:35 Temazepam (Restoril) 15 mg HSPRN PRN ORAL Insomnia 04/11/20 00:15 04/18/20 00:14 Brenda Sosa M.D. Apr 16, 2020 13:37
[2020-04-16 16:00] VITALS: BP 109/75
--- NOTE | 2020-04-16 16:15 | Cardiology Progress Note ---
Assessment/Plan Status: stable Assessment/Plan Assessment/Plan Assessment/Plan 1. Nonsustained ventricular tachycardia. The etiology is not clear at this time. Urine toxic screen is negative. He was already ruled out for myocardial infarction. His echocardiography reveals EF of 65% Had Dobutamine nuclear stress test showed only small reversible defect Recommend medical therapy, no indication for cardiac cath 2. Hypertension. The patient is on Lasix 40 mg p.o. daily. 3. Congestive heart failure. Echocardiogram showed normal left ventricular systolic function with EF of 65%. 4. Chronic back pain. 5. Abdominal pain. Further evaluation by Pain Management. 6. COPD. 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 FOR [employer] NO acute events, no arrhythmias, no chest pain, no fevers Objective Last 24 Hour Vital Signs Date Time Temp Pulse Resp B/P (MAP) Pulse Ox O2 Delivery O2 Flow Rate FiO2 04/16/20 12:00 71 04/16/20 12:00 99.0 73 20 133/87 (102) 100 04/16/20 09:51 97.7 04/16/20 09:21 Room Air 21 04/16/20 09:21 Room Air 21 04/16/20 09:00 Room Air Room Air 04/16/20 08:00 76 04/16/20 08:00 97.7 80 20 153/83 (106) 100 04/16/20 04:00 98.2 78 16 133/55 (81) 92 04/16/20 04:00 63 04/16/20 00:00 98.1 68 17 149/89 (109) 100 04/16/20 00:00 64 04/15/20 21:00 Room Air Room Air 04/15/20 20:15 Room Air 21 04/15/20 20:15 Room Air 21 04/15/20 20:00 69 04/15/20 20:00 99.5 80 16 145/77 (99) 96 04/15/20 18:00 68 General Appearance: no apparent distress, alert EENT: PERRL/EOMI, normal ENT inspection, TMs normal Neck: non-tender, normal alignment, supple Rhythm: NSR Cardiovascular: normal peripheral pulses, normal rate, regular rhythm Respiratory/Chest: chest wall non-tender, lungs clear, normal breath sounds Abdomen: normal bowel sounds, non tender, soft, no organomegaly Extremities: normal range of motion, normal inspection, no calf tenderness Neurologic: foundry manager II-XII grossly normal, no motor/sensory deficits Intake and Output 04/15/20 04/16/20 19:00 07:00 Intake Total 540 ml Output Total 1800 ml 800 ml Balance -1260 ml -800 ml Intake Oral 540 ml Output Urine Total 1800 ml 800 ml # Voids 7 4 # Bowel Movements 2 1 Laboratory Tests Test 04/16/20 05:31 White Blood Count 5.1 K/UL (4.8-10.8) Red Blood Count 4.87 M/UL (4.70-6.10) Hemoglobin 12.4 G/DL (14.2-18.0) L Hematocrit 39.7 % (42.0-52.0) L Mean Corpuscular Volume 82 FL (80-99) Mean Corpuscular Hemoglobin 25.4 PG (27.0-31.0) L Mean Corpuscular Hemoglobin Concent 31.1 G/DL (32.0-36.0) L Red Cell Distribution Width 18.1 % (11.6-14.8) H Platelet Count 110 K/UL (150-450) L Mean Platelet Volume 6.1 FL (6.5-10.1) L Neutrophils (%) (Auto) 57.2 % (45.0-75.0) Lymphocytes (%) (Auto) 27.1 % (20.0-45.0) Monocytes (%) (Auto) 9.3 % (1.0-10.0) Eosinophils (%) (Auto) 5.7 % (0.0-3.0) H Basophils (%) (Auto) 0.7 % (0.0-2.0) Sodium Level 144 MMOL/L (136-145) Potassium Level 4.5 MMOL/L (3.5-5.1) Chloride Level 108 MMOL/L (98-107) H Carbon Dioxide Level 27 MMOL/L (21-32) Anion Gap 9 mmol/L (5-15) Blood Urea Nitrogen 11 mg/dL (7-18) Creatinine 1.1 MG/DL (0.55-1.30) Estimat Glomerular Filtration Rate > 60 mL/min (>60) Glucose Level 108 MG/DL (74-106) H Calcium Level 8.5 MG/DL (8.5-10.1) Carcinoembryonic Antigen Pending FilsoUmberto sarah MD Apr 16, 2020 16:15
--- NOTE | 2020-04-16 16:41 | Pulmonology Progress Note ---
Subjective ROS Limited/Unobtainable: No Interval Events: less abdominal pain Constitutional: Reports: no symptoms HEENT: Repors: no symptoms Allergies: Coded Allergies: No Known Allergies (Unverified , 02/07/19) Objective Last 24 Hour Vital Signs Date Time Temp Pulse Resp B/P (MAP) Pulse Ox O2 Delivery O2 Flow Rate FiO2 04/16/20 16:00 98.6 77 20 109/75 (86) 100 04/16/20 16:00 72 04/16/20 12:00 71 04/16/20 12:00 99.0 73 20 133/87 (102) 100 04/16/20 09:51 97.7 04/16/20 09:21 Room Air 21 04/16/20 09:21 Room Air 21 04/16/20 09:00 Room Air Room Air 04/16/20 08:00 76 04/16/20 08:00 97.7 80 20 153/83 (106) 100 04/16/20 04:00 98.2 78 16 133/55 (81) 92 04/16/20 04:00 63 04/16/20 00:00 98.1 68 17 149/89 (109) 100 04/16/20 00:00 64 04/15/20 21:00 Room Air Room Air 04/15/20 20:15 Room Air 21 04/15/20 20:15 Room Air 21 04/15/20 20:00 69 04/15/20 20:00 99.5 80 16 145/77 (99) 96 04/15/20 18:00 68 Intake and Output 04/15/20 04/16/20 19:00 07:00 Intake Total 540 ml Output Total 1800 ml 800 ml Balance -1260 ml -800 ml Intake Oral 540 ml Output Urine Total 1800 ml 800 ml # Voids 7 4 # Bowel Movements 2 1 General Appearance: WD/WN HEENT: normocephalic Respiratory: chest wall non-tender, normal breath sounds Cardiovascular: normal peripheral pulses, normal rate Abdomen: soft, non tender, non distended, no mass Genitourinary: normal external genitalia Extremities: no cyanosis Skin: no ulcers Lymphatic: no neck adenopathy Laboratory Tests 04/16/20 05:31: White Blood Count 5.1, Red Blood Count 4.87, Hemoglobin 12.4L, Hematocrit 39.7L, Mean Corpuscular Volume 82, Mean Corpuscular Hemoglobin 25.4L, Mean Corpuscular Hemoglobin Concent 31.1L, Red Cell Distribution Width 18.1H, Platelet Count 110L , Mean Platelet Volume 6.1L, Neutrophils (%) (Auto) 57.2, Lymphocytes (%) (Auto) 27.1, Monocytes (%) (Auto) 9.3, Eosinophils (%) (Auto) 5.7H, Basophils (%) (Auto) 0.7, Sodium Level 144, Potassium Level 4.5, Chloride Level 108H, Carbon Dioxide Level 27, Anion Gap 9, Blood Urea Nitrogen 11, Creatinine 1.1, Estimat Glomerular Filtration Rate > 60, Glucose Level 108H, Calcium Level 8.5, Carcinoembryonic Antigen [Pending] Current Medications Medications (Trade) Dose Ordered Sig/Tyrell Route PRN Reason Start Time Stop Time Status Last Admin Dose Admin Acetaminophen (Tylenol) 650 mg Q4H PRN ORAL fever 04/11/20 00:15 05/11/20 00:14 04/16/20 09:21 Budesonide/ Formoterol Fumarate (Symbicort 160/ 4.5) 1 puff TWICE A DAY INH 04/11/20 18:00 07/10/20 17:59 04/16/20 09:21 Dextrose (Dextrose 50%) 25 ml Q30M PRN IV Hypoglycemia 04/11/20 00:15 07/10/20 00:14 Dextrose (Dextrose 50%) 50 ml Q30M PRN IV Hypoglycemia 04/11/20 00:15 07/10/20 00:14 Diphenhydramine HCl (Benadryl) 25 mg Q6H PRN ORAL Itching/Pruritis 04/11/20 00:15 05/11/20 00:14 Furosemide (Lasix) 40 mg DAILY ORAL 04/14/20 09:00 05/12/20 08:59 04/16/20 09:21 Heparin Sodium (Porcine) (Heparin 5000 units/ml) 5,000 units EVERY 12 HOURS SUBQ 04/11/20 09:00 05/26/20 08:59 04/13/20 09:07 Metoclopramide HCl (Reglan) 10 mg Q6H PRN IVP servere nauasea 04/11/20 00:15 05/11/20 00:14 Nitroglycerin (Ntg) 0.4 mg Q5M X 3 DOSES PRN SL Prn Chest Pain 04/11/20 00:15 05/11/20 00:14 04/13/20 02:01 Ondansetron HCl (Zofran) 4 mg Q6H PRN IVP Nausea & Vomiting 04/11/20 00:15 05/11/20 00:14 04/11/20 05:43 Pantoprazole (Protonix) 40 mg DAILY IV 04/11/20 09:00 05/11/20 08:59 04/16/20 09:21 Polyethylene Glycol (Miralax) 17 gm HSPRN PRN ORAL Constipation 04/11/20 00:15 05/11/20 00:14 04/13/20 20:35 Temazepam (Restoril) 15 mg HSPRN PRN ORAL Insomnia 04/11/20 00:15 04/18/20 00:14 Assessment/Plan Problems: (1) Intractable abdominal pain (2) CHF (congestive heart failure) (3) Generalized weakness (4) Hypertension (5) Chronic back pain (6) ETOH abuse (7) Homelessness Assessment/Plan dc planning in progress stress study done: FIXED PHOTOPENIC AREA IN THE INFERIOR WALL OF THE MYOCARDIUM ON BOTH STRESS AND RESTING IMAGES COMPATIBLE WITH OLD FIXED INFARCT. HOWEVER THERE IS A SMALLER PHOTOPENIC AREA AT THE INFERIOR APEX WHICH SHOWS IMPROVEMENT ON RESTING IMAGES COMPATIBLE WITH A SMALL AREA OF REVERSIBLE ISCHEMIA. awaiting Physical therapy evaluation and Neurology consult slightly better symptomatic treatment had low grade fever peterson cultures and ID evaluation\ check echocardiogram, EF 65% meds reviewed dvt prophylaxis pt/ot evaluation Argelia Brooks MD Apr 16, 2020 16:41
[2020-04-16 20:00] VITALS: BP 131/74
--- NOTE | 2020-04-17 09:15 | Consultation ---
DATE OF CONSULTATION: 04/16/2020 NEUROLOGICAL CONSULTATION CONSULTING PHYSICIAN: Honorio Swan MD CHIEF COMPLAINT: This is the second [facility] admission for this 69-year-old right-handed man who was admitted with chronic back pain and abdominal pain. He has a history of hypertension. I was asked to see the patient because of his tremulousness, which he states started about a year or so ago. The patient is probably a chronic alcoholic and drinks a 6-pack of beer a day. He was not drinking the day before admission. The patient states he had "bad nerves" at the age of [age] years old and was seen by a psychiatrist at that time. He also may have had tremor at that time with "bad nerves." He denies any headaches, blackouts, or seizures including alcohol withdrawal seizures and no muscle weakness. His memory is "good." However, he has trouble reading since childhood and has education. The patient denies any paresthesias, dysesthesias, diplopia, loss of smell or taste, dysarthria, or dysphagia. He complains of jerkiness, tremors, also involves his head. He denies any hallucinations or delusions. He denies sexually transmitted diseases or liver disease. There is no history of pancreatitis. He has had low back pain for 10 years and back spasms very often. The patient was admitted to this hospital. He was anemic with normochromic normocytic indices. His white count was normal and platelet count was normal. . No evidence of significant urinary tract infection. Toxicology screen is negative except for serum alcohol level of 44. The patient has activated PTT which was high at 34. There is normal ProTime noted. The patient's chemistries revealed low serum iron, elevated glucose, normal electrolytes. The liver function tests were initially normal, albumin which is low. His lipase was 256. . At that time his albumin normal. His calcium is low . His blood cultures grew after 72 hours. His SARS test is negative. The patient had a CT scan on 02/07/2019 of the brain, which revealed right lacunar infarct seen in the right basal ganglia and chronic microvascular ischemic changes. There is also soft tissue injury in the past. The patient's chest x-ray on admission revealed no acute process. The abdominal ultrasound revealed evidence of cholelithiasis . The echocardiogram on 04/11/2020 is pretty much normal with an ejection fraction of 65%. He has trace mitral and tricuspid regurgitation. He had myocardial perfusion scan. He had photopenic area in the inferior wall in both stress and resting images compatible with an old fixed infarct. There is also a photopenic area in the inferior apex which shows improvement in the resting images compatible with a small area of reversible ischemia. Ejection fraction was 60%. The patient was seen by multiple consultants. The patient is on albuterol for his asthma. In the past and budesonide, Benadryl, furosemide, heparin 5000 units b.i.d., nitroglycerin, Zofran, Protonix, Restoril at night and Reglan p.r.n. severe nausea. There is no family history of neurologic disease. PAST MEDICAL HISTORY/PAST MEDICAL ILLNESSES: 1. Asthma . 2. History of hypertension. 3. Chronic back pain, see above. ALLERGIES: No known allergies. HABITS: He has never smoked or took illegal drugs. FAMILY HISTORY: Noncontributory. SURGERIES: None. MEDICATIONS: See above. REVIEW OF SYSTEMS: His appetite is good. His weight is stable. PHYSICAL EXAMINATION: GENERAL: He is a well-developed, well-nourished man who stutters, in no acute distress. VITAL SIGNS: Temperature is 98.6 degrees, pulse is 77 and regular, respiratory rate 20, blood pressure is 109/75. HEENT: Examination of skin reveals arcus senilis. Poor dentition. NECK: Neck is supple. No tenderness. Carotids are +2. No bruits. LUNGS: Clear to auscultation. CARDIOVASCULAR: PMI was not felt. JVP was not visualized. The patient has normal S1. S2 is physiologically split. There is no S3, S4, murmurs, or rubs. ABDOMEN: Slightly obese. Bowel sounds intact. There is diffuse tenderness noted. BACK: There is no tenderness to percussion. He does have a bandage to the coccyx area and lower lumbar area. EXTREMITIES: Abnormal left MCP joint of the fifth finger and deformities of the distal joints of the upper extremity, mostly on the left. NEUROLOGIC: MENTAL STATUS: Judgment was impaired. Affect was appropriate to his mood, which was slightly anxious. Memory, past memory is intact to his birthday, which is 1950, immediate recall 3/3 objects. Recent recall 0/3 objects at 5 minutes. Orientation, he knew it is 04/16/2020. He knew he is at [facility] second floor. He is oriented to person. numbers backwards. He could only get 1/4. There was no right/left confusion or finger agnosia. Speech was with slight stuttering. Repetition is basically intact. There is no paraphasias. Comprehension is good. CRANIAL NERVE EXAMINATION: CRANIAL NERVE II: Visual russell intact to confrontation. CRANIAL NERVES III, IV, AND : Extraocular motility is full. The pupils are approximately 4 to 5 mm, round, reactive to light. CRANIAL NERVES V: Corneal and facial sensation intact. CRANIAL NERVE VII: Facial strength is 5/5 bilaterally. CRANIAL NERVE VIII: Auditory acuity is intact at least to loud whisper. CRANIAL NERVES IX AND X: Not examined. CRANIAL NERVE XI: Sternocleidomastoid strength is 5/5. CRANIAL NERVE XII: Tongue protrudes in the midline without fasciculations or atrophy. MUSCLE EXAMINATION: Muscle bulk is normal. Tone is normal to mild paratonia. Strength is 5/5 proximally and distally without pronator drift. There is no asterixis. However, he has multiple myoclonic jerks involving the face in the lower extremities. They were multifocal. There was minimal tremor noted with the hand outstretched. There is no asterixis. Reflexes are trace in the upper extremities, +1 at the knees and 0 at the ankles with downgoing toes and testing for Babinski response. COORDINATION: [id number] is basically intact except for mild tremor. Nyln-og-ttel testing reveals intact gait and station and rapid alternating movements were done slightly. GAIT AND STATION: The patient had a normal based gait. Romberg is negative slightly decreased . SENSORY EXAMINATION: Proprioception is normal. Pinprick and fine touch were normal. IMPRESSION: This patient has mild encephalopathy, multifocal . It is probably not just due to alcohol withdrawal but . He has no family history of polymyoclonus, it does not appear that he has subacute spongiform encephalopathy, Ian's encephalitis, serotonin syndrome are unlikely. However, the patient will be transferred to another hospital tonight. The patient should have RPR and FTA. He is homeless. The patient has evidence of cerebrovascular disease with lacunar infarct. An MRI scan of the brain might be useful. An EEG might also be useful if the patient remains in the hospital. The patient can be treated with low-dose Klonopin. The serum ammonia should be obtained, although there is liver function tests. PLAN: 1. Serum ammonia. 2. EEG . 3. MRI scan of the brain. 4. Klonopin 0.5 mg p.o. b.i.d. 5. Social work consult. 6. RPR and FTA. 7. I will speak to you about this case. Thank you very much for this interesting case, Dr. Kendrick. Honorio Swan MD DR: Tr JOB#: [id number] CC:
--- NOTE | 2020-04-21 13:52 | Discharge Summary ---
Discharge Summary Discharge Summary _ DATE OF ADMISSION: 04/10/2020 DATE OF DISCHARGE: 04/17/2020 DISCHARGED BY: Dr. Kendrick REASON FOR ADMISSION: 69 years old male with past medical history of hypertension, chronic back pain , ETOH abuse, homeless, followed -up with the pain specialist, resented with generalized weakness. Patient reported that he ran off his [place]. He was also prescribed clonazepam by his pain specialist. He reported shortness of breath , nausea and bilateral lower extremity edema, all getting worse. He denied fever and chills. No urinary retention, urinary or fecal incontinence, saddle anesthesia, difficulty walking or focal weakness. Upon evaluation blood pressure was elevated 171/94 , other vital signs were stable. No leukocytosis, stable hemoglobin and hematocrit. Rapid COVID-19 was negative. Stable electrolytes , renal parameters and LFT. Troponin negative , pro BNP 169. Urinalysis unremarkable. Urine toxicology screen negative. Chest x-ray revealed no acute process. Patient subsequently admitted for fluid overload , abdominal pain and chronic lower back pain CONSULTANTS: contact finger assembler Dr. Loza neurologist Dr. Swan pulmonary Dr. Brooks ID specialist Dr. Sosa GI specialist Dr. Medina [facility]RSE: Patient admitted to monitored floor. Patient started on diuresis with close monitoring of volumes and cardiorenal parameters. Serial troponin were negative. EKG revealed no acute ischemic changes. Patient was ruled out for acute myocardial infarction. Echocardiogram demonstrated preserved ejection fraction 65% with mild left ventricular hypertrophy. No evidence of wall motion abnormality. No evidence of pericardial effusion. Patient subsequently undergone myocardial perfusion scan , which revealed ejection fraction of 60% . Fixed photopenic area in the inferior wall of the myocardium on both stress and resting imaging , compatible with old fixed infarct. There was also a smaller photopenic area at the inferior apex with visual improvement on resting imaging , compatible with a small area of reversible ischemia. Microbiology Director closely reviewed dobutamine stress test and advised to have at this time medical therapy. Only small reversible defect was noted , no indication for cardiac catheteriza tion at this time. Etiology of nonsustained ventricular tachycardia was not clear. Blood pressure was stable with Lasix. GI specialist followed. Abdominal ultrasound revealed cholelithiasis , but no evidence of dilated bile ducts. Symptomatic treatment provided . Pain management was addressed . Antiemetic provided as needed. Abdominal pain resolved. Labs remained stable. GI procedure were on hold at this time given small reversible defect on Echo and resolution of symptoms. COVID-19 in emergency department was negative. Blood cultures were negative. Patient remained afebrile no leukocytosis. ID specialist recommended to keep patient off antibiotics. Pulse oximetry remained stable on room air. Neurologist followed. Per neurologist patient had mild encephalopathy , likely multifocal. RPR was negative. MRI of the brain was recommended by neurologist, which can be done as outpatient as well as EEG. HIV test was negative as well is GC/CT . Patient clinically stabilized Placement at the [facility] facility was found and secured . Patient was discharged to [facility] on [address]. FINAL DIAGNOSES: Mild encephalopathy, multifocal Cerebrovascular disease with lacunar infarct Pedal edema, most likely secondary to fluid overload Congestive heart failure Nonsustained ventricular tachycardia Hypertension Abnormal stress test with small area of reversible defect Chronic back pain -controlled Abdominal pain-resolved Cholelithiasis ETOH abuse Homelessness Generalized weakness DISCHARGE MEDICATIONS: See Medication Reconciliation list. DISCHARGE INSTRUCTIONS: Patient was discharged to the [facility] facility. Follow up with medical doctor at the facility. I have been assigned to dictate discharge summary for this account. I was not involved in the patient's management. Meghana Burrell NP Apr 21, 2020 13:52
== END 2020-04-17 00:05 | DRG 292 ==
LOC: EMR 21:00 → 2E 23:14 → EDBEDREQ 23:58
DX: I11.0 Hypertensive heart disease with heart failure (principal); F11.20 Opioid dependence, uncomplicated; F13.20 Sedative, hypnotic or anxiolytic dependence, uncomplicated; I47.2 Ventricular tachycardia; M54.5 Low back pain; F41.9 Anxiety disorder, unspecified; Z59.0 Homelessness; D64.9 Anemia, unspecified; G89.29 Other chronic pain; I50.9 Heart failure, unspecified; F10.10 Alcohol abuse, uncomplicated; R19.7 Diarrhea, unspecified; K80.80 Other cholelithiasis without obstruction; J44.9 Chronic obstructive pulmonary disease, unspecified; Z86.73 Personal history of transient ischemic attack (TIA), and cerebral infarction without residual deficits
CPT/HCPCS: 36415; 71045; 76700; 78452; 80048; 80053; 80307; 81003; 82150; 82378; 83690; 83735; 83880; 84100; 84484; 85025; 85730; 86592; 86703; 87040; 87081; 87491; 87536; 87590; 93005; 93017; 93306; 94640; 99285; J2405; J2785; J8499; U0002

== ENCOUNTER 2020-08-25 00:57 | Emergency (ER) | payer MEDICARE, MEDICAID ==
[~2020-08-25] VITALS: Ht 175.3 cm; Wt 72.6 kg
[~2020-08-25 00:57] MED LIST changes: +KLONOPIN0.5 MG ORAL; +SYMBICORT 16010.2 G1 IH
[2020-08-25 01:15] VITALS: BP 125/84
[2020-08-25] MEDS ORDERED: CYCLOBENZAPRINE10 MG ORAL (01:15)
[2020-08-25] MEDS ORDERED: HYDROcodone/Acetamin 10/325 tab ORAL ONE (01:15)
[2020-08-25] MEDS ORDERED: HYDROCODON-ACE1 EA13 ORAL (01:15)
--- NOTE | 2020-08-25 01:15 | NUR ---
Nurse Note: Pt walked in c/o chronic back pain. Pt stated the pain is worse today and the pain is in the hips, thighs, legs, feet. Pt stated he feels spasm. Pt stated the cold weather makes the pain worse; denies trauma
--- NOTE | 2020-08-25 01:20 | Emergency Room Report ---
History of Present Illness General Chief Complaint: Back Pain-No Injury Present Illness HPI 70-year-old male with a history of chronic back pain and opioid dependence here requesting prescription for "[place] tens." Patient has been seen here many times in the past for his chronic back pain and requesting opioid pain medications. Patient was admitted several months ago for generalized weakness at which point the patient was then discharged to a nursing care facility. Patient said that he was there for a few months and then left and has been homeless. He said "they gave me the wrong medication. The only gave me [place] fives." Patient said that he ran out of that medication weeks ago. Claims to have not been taking any medications recently for his back pain. He says this back pain is the same as his usual back pain. Dull nature, located in the lumbar region, chronic in nature. No fevers, chills, chest pain, palpitation shortness of breath, abdominal pain, nausea, vomiting, diarrhea, dysuria, focal numbness or weakness, IV drug use, midline spinal tenderness, urinary or fecal retention or incontinence. Allergies: Coded Allergies: No Known Allergies (Unverified , 02/07/19) COVID-19 Screening Contact w/high risk pt: No Recent Travel to affected area: No Experienced COVID-19 symptoms?: No COVID-19 Testing performed NUTRITIONIST PUBLIC HEALTH: No Nursing Documentation-PMH Hx Cardiac Problems: No Hx Hypertension: Yes Hx Asthma: Yes Hx Cancer: No Hx Gastrointestinal Problems: No Hx Neurological Problems: No Review of Systems All Other Systems: negative except mentioned in HPI Physical Exam Vital Signs Date Time Temp Pulse Resp B/P (MAP) Pulse Ox O2 Delivery O2 Flow Rate FiO2 08/25/20 01:04 98.4 90 16 125/84 (98) 98 Room Air Sp02 EP Interpretation: reviewed, normal General Appearance: no apparent distress, alert, non-toxic Head: normocephalic, atraumatic Eyes: bilateral eye normal inspection, bilateral eye PERRL ENT: hearing grossly normal, normal pharynx, no angioedema, normal voice Neck: full range of motion, supple/symm/no masses Respiratory: chest non-tender, lungs clear, normal breath sounds, speaking full sentences Cardiovascular #1: regular rate, rhythm, no edema Cardiovascular #2: 2+ carotid (R), 2+ carotid (L), 2+ radial (R), 2+ radial (L), 2+ dorsalis pedis (R), 2+ dorsalis pedis (L) Gastrointestinal: normal bowel sounds, non tender, soft, non-distended, no guarding, no rebound Rectal: deferred Genitourinary: normal inspection, no CVA tenderness Musculoskeletal: normal range of motion, gait/station normal, other - Mild lumbar paraspinal tenderness on palpation bilaterally. No midline spinal tenderness. No step-offs or deformities. No neurologic abnormalities Neurologic: alert, motor strength/tone normal, oriented x3, sensory intact, responsive, speech normal Psychiatric: judgement/insight normal, memory normal, mood/affect normal, no suicidal/homicidal ideation Lymphatic: no adenopathy Medical Decision Making Homeless Attestation Patient has been medically screened and is stable for outpatient follow up Diagnostic Impression: Primary Impression: Chronic back pain Additional Impression: Narcotic dependence ER Course ddx: Musculoskeletal, compression fx, herniated sic, sciatica, spinal stenosis, epidural abscess, osteomyelitis, cauda equina, mass-tumor 70-year-old male here with back pain. Patient suffers from chronic back pain and has seen a pain specialist in the past. Patient says he has not seen his pain specialist in several months. Is currently homeless. He had an unremarkable physical examination, ambulatory throughout the emergency department without difficulty. Had no red flag warning signs. Patient was given a [place] 10 and Valium in the emergency department. Given prescription for [place] 10 and Flexeril. Told to follow-up with his pain specialist. He expressed understanding and was discharged. Last Vital Signs Date Time Temp Pulse Resp B/P (MAP) Pulse Ox O2 Delivery O2 Flow Rate FiO2 08/25/20 01:04 98.4 90 16 125/84 (98) 98 Room Air Disposition: OTH-HOMELESS Condition: Stable Scripts Cyclobenzaprine Hcl* (FLEXERIL*) 10 Mg Tablet 10 MG ORAL THREE TIMES A DAY for 7 Days, TAB Prov: Harry Jeffrey M.D. 08/25/20 Hydrocodone Bit/Acetaminophen 10-325* (HYDROCODON-ACETAMINOPHN 10-325*) 1 Each Tablet 1 TAB ORAL Q4H, #10 TAB 0 Refills Prov: Harry Jeffrey M.D. 08/25/20 Referrals: [facility]. [facility] Patient Instructions: Back Pain, Adult Harry Jeffrey M.D. Aug 25, 2020 01:20
[2020-08-25 02:10] VITALS: BP 130/78
--- NOTE | 2020-08-25 02:10 | NUR ---
ED Nurse Note: Pt cleared by health care Provider for discharge. DC instructions/prescription was given and explained to pt and verbalized understanding of teachings. Instructed pt to follow up with PCP within 3-7 days. All medical deviecs such as ID band removed. Pt is AAO x4, ambulatory and left with all personal belongings. Homeless form was signed by pt; food provided, pt had weather approrate clothing. Pt refused location after discharge.
== END 2020-08-25 02:10 | disposition other institution (70) ==
LOC: EMR 01:16
DX: M54.9 Dorsalgia, unspecified (principal); G89.29 Other chronic pain; F11.20 Opioid dependence, uncomplicated; Z59.0 Homelessness; I10 Essential (primary) hypertension
CPT/HCPCS: 99282

== ENCOUNTER 2020-09-20 19:31 | Emergency (ER) | payer MEDICARE, MEDICAID ==
[~2020-09-20] VITALS: Ht 175.3 cm; Wt 72.6 kg
[~2020-09-20 19:31] MED LIST changes: +CYCLOBENZAPRINE10 MG ORAL; +HYDROCODON-ACE1 EA13 ORAL
--- NOTE | 2020-09-20 19:49 | NUR ---
ED Nurse Note: Pt c/o bilateral leg swelling that has been on and off x1 year. Reports swelling is worse when he walks. Pt c/o pain reports he cannot get norco prescription filled, because he lost ID. Also reports he lost his last prescription of norco pills. Pt ambulated into ED. Pt is AAO x4.
[2020-09-20] MEDS ORDERED: IBUPROFEN600 M1 ORAL (19:55)
--- NOTE | 2020-09-20 19:55 | Emergency Room Report ---
History of Present Illness General Chief Complaint: Edema Source: Patient Present Illness HPI 70-year-old male with history of chronic pain and chronic leg edema who has been here multiple times for same complaint and was recently admitted to [facility] for weakness and had multiple consultation including one from a fiber heel piece shaper and discharged to follow-up with primary doctor here complaining of worsening leg pa in and edema for the past 3+ months. Denies any fall or injury. Patient has an active prescription for Creston. Patient says that he lost his ID and cannot get Creston from pharmacy however is asking for either a prescription for Creston tens only ordered dispense of 1 month supply of Creston tens. When I asked patient if he has lost his ID how he is going to get any medication from pharmacy he then replied" oh I lost my Creston's". Patient reports that he gets his Creston mailed to him prescribed by pain management based on cures history he had 25-day supply of Creston tens received on September 03, 2020 however reports that he is already finished with those. Patient admits to taking more than directed at home home. Denies any chest pain or shortness of breath. Denies any headache and dizziness. Patient agrees to take 1 Creston here and Toradol and be discharged with Motrin and follow-up with pain management. Denies tingling or numbness. Is neurovascularly intact.Patient also mentions chronic back pain without any changes since the last visit he was here urinary bowel incontinence, denies saddle paresthesia denies any recent fall or injury. Allergies: Coded Allergies: No Known Allergies (Unverified , 02/07/19) COVID-19 Screening Contact w/high risk pt: No Recent Travel to affected area: No Experienced COVID-19 symptoms?: No COVID-19 Testing performed PRODUCT SUPPORT ANALYST: No Patient History Past Medical History: see triage record Past Surgical History: unable to obtain Pertinent Family History: unable to obtain Reviewed Nursing Documentation: PMH: Agreed; PSxH: Agreed Nursing Documentation-PMH Past Medical History: No History, Except For Hx Cardiac Problems: No Hx Hypertension: Yes Hx Asthma: Yes Hx Cancer: No Hx Gastrointestinal Problems: No History Of Psychiatric Problem: Yes - anxiety Hx Neurological Problems: No Review of Systems All Other Systems: negative except mentioned in HPI Physical Exam Vital Signs Date Time Temp Pulse Resp B/P (MAP) Pulse Ox O2 Delivery O2 Flow Rate FiO2 09/20/20 19:33 98.2 98 14 150/80 (103) 96 Room Air Sp02 EP Interpretation: reviewed, normal General Appearance: alert Head: normocephalic, atraumatic Eyes: bilateral eye normal inspection, bilateral eye PERRL ENT: no angioedema Neck: supple, no bony tend Respiratory: normal breath sounds, no rhonchi, no respiratory distress, no retraction, no accessory muscle use Cardiovascular #1: regular rate, rhythm, no gallop, no murmur, normal capillary refill Cardiovascular #2: 2+ dorsalis pedis (R), 2+ dorsalis pedis (L) Gastrointestinal: soft, non-distended Genitourinary: no CVA tenderness Musculoskeletal: back normal, no calf tenderness, gait/station normal, swelling - Bilateral lower extremity appears to be chronic, no pitting edema noted, no calf tenderness noted Neurologic: alert, motor strength/tone normal, oriented x3, sensory intact, responsive, speech normal Psychiatric: judgement/insight normal, memory normal, mood/affect normal, no suicidal/homicidal ideation Skin: no rash Lymphatic: no adenopathy Medical Decision Making PA Attestation All diagnosis and treatment plans were discussed and reviewed by my supervising physician Dr. Dorantes Diagnostic Impression: Primary Impression: Chronic edema ER Course 70-year-old male with history of chronic pain and chronic leg edema who has been here multiple times for same complaint and was recently admitted to [facility] for weakness and had multiple consultation including one from a fiber heel piece shaper and discharged to follow-up with primary doctor here complaining of worsening leg pain and edema for the past 3+ months. Denies any fall or injury. Patient has an active prescription for Creston. Patient says that he lost his ID and cannot get Creston from pharmacy however is asking for either a prescription for Creston tens only ordered dispense of 1 month supply of Creston tens. When I asked patient if he has lost his ID how he is going to get any medication from pharma [facility] he then replied" oh I lost my Creston's". Patient reports that he gets his Creston mailed to him prescribed by pain management based on cures history he had 25-day supply of Creston tens received on September 03, 2020 however reports that he is already finished with those. Patient admits to taking more than directed at home home. Denies any chest pain or shortness of breath. Denies any headache and dizziness. Patient agrees to take 1 Creston here and Toradol and be discharged with Motrin and follow-up with pain management. Denies tingling or numbness. Is neurovascularly intact. Patient also mentions chronic back pain without any changes since the last visit he was here urinary bowel incontinence, denies saddle paresthesia denies any recent fall or injury. Ddx considered but are not limited to : Cellulitis, DVT, superficial infection, abscess, chronic leg edema, water retention, CHF, Vital signs: are WNL, pt. is afebrile H&PE are most consistent with: Chronic edema, chronic back pain ORDERS: Motrin ED INTERVENTIONS: Toradol IM, 1 tablet of Creston 5 in house DISCHARGE: At this time pt. is stable for d/c to home. Will provide printed patient care instructions, and any necessary prescriptions. Care plan and follow up instructions have been discussed with the patient prior to discharge. I explained the patient that patient has an active prescription for Creston that he is taking more than directed and to follow-up with pain management for adjustment of the dose as he keeps repeating" Creston tens and not the correct dose for me." Advised patient return to the emergency room worsening symptoms. Patient had a full work-up regarding leg edema and weakness at [facility] couple months ago and was directed to follow-up with primary doctor after he was admitted and consultation from various consultants. Last Vital Signs Date Time Temp Pulse Resp B/P (MAP) Pulse Ox O2 Delivery O2 Flow Rate FiO2 09/20/20 19:33 98.2 98 14 150/80 (103) 96 Room Air Disposition: HOME, SELF-CARE Condition: Stable Scripts Ibuprofen* (MOTRIN*) 600 Mg Tablet 600 MG ORAL Q6H PRN for For Pain, #30 TAB 0 Refills Prov: Jazmyne Montoya 09/20/20 Referrals: NOT CHOSEN IPA/,REFERRING (PCP) Patient Instructions: Edema, [id number] Additional Instructions: Follow-up with pain management, take anti-inflammatories for edema pain relief. If worsening symptoms return to the emergency room Jazmyne Montoya Sep 20, 2020 19:55
[2020-09-20] MEDS ORDERED: HYDROcodone/Acetamin 5/325 tab ORAL ONE (20:00)
[2020-09-20] MEDS ORDERED: Ketorolac 30mg Inj IM ONE (20:00)
[2020-09-20 20:05] VITALS: BP 150/80
[2020-09-20 20:09] VITALS: BP 150/80
--- NOTE | 2020-09-20 20:12 | NUR ---
ER DISCHARGE NOTE: Patient is cleared to be discharged per ER MD, pt is aao x4, on room air, with stable vital signs. pt was given d/c and prescription instructions, pt was able to verbalize understanding, pt id band removed. pt is able to ambulate with steady gait. pt took all belongings.
== END 2020-09-20 20:30 | disposition home or self-care (01) ==
LOC: EMR 19:48
DX: R60.0 Localized edema (principal); I10 Essential (primary) hypertension; J45.909 Unspecified asthma, uncomplicated
CPT/HCPCS: 96372; 99283; J1885

== ENCOUNTER 2020-09-22 00:08 | Emergency (ER) | payer MEDICARE, MEDICAID ==
[~2020-09-22] VITALS: Ht 175.3 cm; Wt 72.6 kg
[~2020-09-22 00:08] MED LIST changes: +IBUPROFEN600 M1 ORAL
[2020-09-22 00:31] VITALS: BP 112/68
--- NOTE | 2020-09-22 00:31 | NUR ---
ED Nurse Note: Pt placed in RME. Pt walked into ED from home c/o bilateral lower extremity pain, with back and neck pain. Pt was seen yesterday at ED [facility] for same complaint. Per EMR pt received pain medication and was dc.
[2020-09-22] MEDS ORDERED: HYDROCODON-ACE1 EA15 ORAL (00:40)
[2020-09-22] MEDS ORDERED: FUROSEMIDE40 MG ORAL (00:40)
[2020-09-22] MEDS ORDERED: HYDROcodone/Acetamin 10/325 tab ORAL ONE (00:45)
[2020-09-22] MEDS ORDERED: Furosemide 40mg tab ORAL ONE (00:45)
[2020-09-22 00:50] VITALS: BP 115/70
--- NOTE | 2020-09-22 00:50 | NUR ---
ER DISCHARGE NOTE: Patient is cleared to be discharged per ERMD, pt is aox4, on room air, with stable vital signs. pt was given paper prescriptions with instructions to f/u with PMD appointment pt stated he had tomorrow. Pt did not want to wait for 30min observations following med administration. pt was able to verbalize understanding, pt id band removed without complications. pt is able to ambulate with steady gait. pt took all belongings.
--- NOTE | 2020-09-22 00:54 | Emergency Room Report ---
History of Present Illness General Chief Complaint: Edema Source: Patient Present Illness HPI 70-year-old male with history of chronic back pain and chronic lower extremity edema here complaining once again of back pain and edema. Patient was here yesterday with the same complaints. He is in no respiratory distress at all. He is homeless. Has been dealing with these issues for many years. Says that he was given a Savanna prescription but "I lost it." Patient requesting a Savanna prescription. Says that he has been on Lasix in the past but has not taken it in several weeks since he "lost that medicine to." Denies headache, vision change, fevers, chills, chest pain, palpitation, shortness of breath. Allergies: Coded Allergies: No Known Allergies (Unverified , 02/07/19) COVID-19 Screening Contact w/high risk pt: No Recent Travel to affected area: No Experienced COVID-19 symptoms?: No COVID-19 Testing performed SHOE PARTS CASER: No Nursing Documentation-PMH Past Medical History: No History, Except For Hx Cardiac Problems: No Hx Hypertension: Yes Hx Asthma: Yes Hx Cancer: No Hx Gastrointestinal Problems: No Hx Neurological Problems: No Review of Systems All Other Systems: negative except mentioned in HPI Physical Exam Vital Signs Date Time Temp Pulse Resp B/P (MAP) Pulse Ox O2 Delivery O2 Flow Rate FiO2 09/22/20 00:24 98.1 107 18 112/68 (83) 97 Room Air Sp02 EP Interpretation: reviewed, normal General Appearance: no apparent distress, alert, non-toxic Head: normocephalic, atraumatic Eyes: bilateral eye normal inspection, bilateral eye PERRL ENT: hearing grossly normal, normal pharynx, no angioedema, normal voice Neck: full range of motion, supple/symm/no masses Respiratory: chest non-tender, lungs clear, normal breath sounds, speaking full sentences Cardiovascular #1: regular rate, rhythm, other - 3+ lower extremity pitting edema Cardiovascular #2: 2+ carotid (R), 2+ carotid (L), 2+ radial (R), 2+ radial (L), 2+ dorsalis pedis (R), 2+ dorsalis pedis (L) Gastrointestinal: normal bowel sounds, non tender, soft, non-distended, no guarding, no rebound Rectal: deferred Genitourinary: normal inspection, no CVA tenderness Musculoskeletal: back normal, normal range of motion, gait/station normal, non- tender Neurologic: alert, motor strength/tone normal, oriented x3, sensory intact, responsive, speech normal Psychiatric: judgement/insight normal, memory normal, mood/affect normal, no avendano icidal/homicidal ideation Lymphatic: no adenopathy Medical Decision Making Homeless Attestation Patient has been medically screened and is stable for outpatient follow up Diagnostic Impression: Primary Impression: Edema ER Course 70-year-old male with history of chronic back pain on Savanna and chronic lower extremity edema here complaining of back pain and edema. Patient has been seen here many times in the past. He was ambulating without difficulty throughout the emergency department had no respiratory distress. He had normal vital signs. Lower extremity edema appears chronic for the patient. He was given 1 dose of p.o. Lasix and a prescription for 2 weeks worth of Lasix. Given information to follow-up with primary care. [facility]. Given prescription for Savanna and told to follow-up with his pain specialist which she says he has seen in the past. Told to return with any chest pain or shortness of breath. He expressed understanding and was discharged. Last Vital Signs Date Time Temp Pulse Resp B/P (MAP) Pulse Ox O2 Delivery O2 Flow Rate FiO2 09/22/20 00:31 107 18 Room Air 09/22/20 00:31 98.1 112/68 97 Disposition: OTH-HOMELESS Condition: Stable Scripts Furosemide* (LASIX*) 40 Mg Tablet 40 MG ORAL DAILY, #14 TAB Prov: Harry Jeffrey M.D. 09/22/20 Hydrocodone/Acetaminophen 5-325* (HYDROCODONE/ACETAMINOPHEN 5-325*) 1 Each Tablet 1 TAB ORAL Q4H PRN for For Pain, #10 TAB 0 Refills Prov: Harry Jeffrey M.D. 09/22/20 Referrals: [facility] Patient Instructions: Edema Harry Jeffrey M.D. Sep 22, 2020 00:54
== END 2020-09-22 00:50 | disposition other institution (70) ==
LOC: EMR 00:22
DX: R60.0 Localized edema (principal); Z59.0 Homelessness; I10 Essential (primary) hypertension
CPT/HCPCS: 99282